=== PATIENT | male | born 1955 | race Caucasian/White ===

== ENCOUNTER → 2017-03-29 19:43 | Emergency (ER) | payer BC ==
[2017-03-29 22:02] VITALS: BP 00/00
--- NOTE | 2017-03-29 23:17 | ED ---
Lower Extremity - HPI Summary HPI Summary: 61M presents with bruising to left ankle. He is concerned because has a VAD. He checked his INR today and it was 2.9. He is on warfarin and is being managed by Liz. He states he got the bruising from what he believes to be hitting against a table. He denies any blood in his stool or nosebleeds. He is concerned her is bleeding internally at site of the bruise but there is no swelling present. He has never had an issue with his platelet. He is having his blood worked check in two days. He denies any pain. - History of Current Complaint Chief Complaint: EDExtremityLower Stated Complaint: LEFT LEG BRUISE, PT HAS L VAC Time Seen by Provider: 03/29/17 21:58 Pain Intensity: 1 - Allergies/Home Medications Allergies/Adverse Reactions: Allergies Allergy/AdvReac Type Severity Reaction Status Date / Time No Known Allergies Allergy Verified 07/16/15 19:22 PMH/Surg Hx/FS Hx/Imm Hx Endocrine/Hematology History: Denies: Hx Diabetes, Hx Thyroid Disease Cardiovascular History: Reports: Hx Hypertension, Hx Pacemaker/ICD, Other Cardiovascular Problems/Disorders - VTACH Respiratory History: Denies: Hx Asthma GI History: Denies: Hx Ulcer - Surgical History Surgery Procedure, Year, and Place: AORTIC VALVE SURGERY Infectious Disease History: No Infectious Disease History: Denies: Hx Clostridium Difficile, Hx Hepatitis, Hx Human Immunodeficiency Virus (HIV), Hx of Known/Suspected MRSA, Hx Shingles, Hx Tuberculosis, Hx Known/ Suspected VRE, Traveled Outside the [place] in Last 30 Days - Family History Known Family History: Positive: Cardiac Disease - Social History Alcohol Use: None Substance Use Type: Reports: None Smoking Status (MU): Never Smoked Tobacco Review of Systems Negative: Fever Negative: Chest Pain Negative: Shortness Of Breath Positive: Bruising - left ankle All Other Systems Reviewed And Are Negative: Yes Physical Exam Triage Information Reviewed: Yes Vital Signs On Initial Exam: Initial Vitals Temp Resp Pulse Ox 99.1 F 18 100 03/29/17 20:33 03/29/17 20:33 03/29/17 20:33 Vital Signs Reviewed: Yes Appearance: Positive: Well-Appearing Skin: Positive: Warm, Dry, Other - three small areas of ecchymosis to medially ankle with no edema present Head/Face: Positive: Normal Head/Face Inspection Eyes: Positive: Normal, Conjunctiva Clear Respiratory/Lung Sounds: Positive: Clear to Auscultation, Breath Sounds Present Cardiovascular: Positive: Normal, RRR Musculoskeletal: Positive: Strength/ROM Intact - left ankle Diagnostics - Vital Signs Vital Signs Temp Pulse Resp BP Pulse Ox 03/29/17 21:59 98.9 F 65 16 00/00 100 03/29/17 20:33 99.1 F 18 100 - Laboratory Lab Statement: Any lab studies that have been ordered have been reviewed, and results considered in the medical decision making process. Lower Extremity Course/Dx - Course Course Of Treatment: 61M presents with bruising to left ankle. He is concerned because has a VAD. He checked his INR today and it was 2.9. He is on warfarin and is being managed by Liz. He states he got the bruising from what he believes to be hitting against a table. He denies any blood in his stool or nosebleeds. He is concerned her is bleeding internally at site of the bruise but there is no swelling present. He has never had an issue with his platelet. He is having his blood worked check in two days. He denies any pain. on exam no edema present and small areas of ecchymosis. since inr already checked today no reason to recheck it. no edema so do not suspect internal bleeding at ecchmoysis site. patient understands and agrees with plan - Diagnoses Differential Diagnosis/HQI/PQRI: Positive: DVT, Other - ecchmoysis Provider Diagnoses: Traumatic ecchymosis of left ankle Discharge - Discharge Plan Condition: Good Disposition: HOME Referrals: Dusty Rodas MD [Primary Care Provider] - Additional Instructions: Follow up with liz as needed Return to ED if swelling develops in area or any new or worsening symptoms
== END | disposition home or self-care (01) ==
LOC: ED 19:43
DX: S90.02XA Contusion of left ankle, initial encounter (principal); Z79.01 Long term (current) use of anticoagulants; X58.XXXA Exposure to other specified factors, initial encounter; Y93.89 Activity, other specified; Y92.89 Other specified places as the place of occurrence of the external cause
CPT/HCPCS: 99281

== ENCOUNTER 2017-06-26 18:35 | Emergency (ER) | payer BC ==
[2017-06-26] MEDS ORDERED: Gelfoam 12-7 ADSORBABL SPONGE* 1 EA SPONGE TOPICAL ONE ×2 (20:12→20:32)
[2017-06-26] MEDS ORDERED: Tetan/Diph/Pertus SYR(Tdap)* 0.5 ML SYR(BOOSTRIX) use SYR IM ONE (20:53)
--- NOTE | 2017-06-26 21:35 | UC ---
Laceration HPI - HPI Summary HPI Summary: Patient presents to the with skin avulsion to the right index finger with small laceration to the left middle finger. He has a complicated history. He has an LVAD and currently on blood thinners. He states he sustained the avulsion to the skin from a kitchen slicer. Immunizations are not UTD. Pain is 3/10 and throbbing. Bleeding is not well controlled on arrival. - History Of Current Complaint Hx Obtained From: Patient Laceration Location: Hand Mechanism Of Injury: Sharp Trauma Onset/Duration: Sudden Onset Severity: Moderate Pain Intensity: 1 Pain Scale Used: 0-10 Numeric Aggravating Factors: Position Related History: Dominant Hand Right <Vidhi Beltran - Last Filed: 06/26/17 21:28> <Claudia Garcia - Last Filed: 06/26/17 21:47> - History Of Current Complaint Chief Complaint: UCLaceration Stated Complaint: FINGER LAC Time Seen by Provider: 06/26/17 19:29 - Allergies/Home Medications Allergies/Adverse Reactions: Allergies Allergy/AdvReac Type Severity Reaction Status Date / Time No Known Allergies Allergy Verified 07/16/15 19:22 PMH/Surg Hx/FS Hx/Imm Hx Previously Healthy: Yes - Surgical History Surgical History: Yes Surgery Procedure, Year, and Place: AORTIC VALVE SURGERY - Family History Known Family History: Positive: Cardiac Disease - Social History Occupation: Employed Part-time Lives: With Family Alcohol Use: None Substance Use Type: None Smoking Status (MU): Never Smoked Tobacco - Immunization History Most Recent Tetanus Shot: within 10 years, yes <Vidhi Beltran - Last Filed: 06/26/17 21:28> Review of Systems Constitutional: Negative Skin: Other - skin avulsion Respiratory: Negative Cardiovascular: Negative Genitourinary: Negative Motor: Negative Neurovascular: Negative Musculoskeletal: Negative Neurological: Negative Is Patient Immunocompromised?: No All Other Systems Reviewed And Are Negative: Yes <Vidhi Beltran - Last Filed: 06/26/17 21:28> Physical Exam Triage Information Reviewed: Yes Appearance: Well-Appearing, Well-Nourished Vital Signs: Initial Vital Signs Temp 98.5 F 06/26/17 18:37 Pulse 83 06/26/17 18:37 Resp 18 06/26/17 18:37 Pulse Ox 98 06/26/17 18:37 Vital Signs Reviewed: Yes Eye Exam: Normal Eyes: Positive: Conjunctiva Clear Dental Exam: Normal Neck exam: Normal Respiratory: Positive: Chest non-tender, Lungs clear Cardiovascular Exam: Normal, Other - patient has LVAD Musculoskeletal Exam: Normal Musculoskeletal: Positive: Strength Intact Neurological Exam: Normal Neurological: Positive: Alert Psychological Exam: Normal Psychological: Positive: Normal Response To Family Skin: Positive: Other - avulsion to the tip of the right index finger <Vidhi Beltran - Last Filed: 06/26/17 21:28> Vital Signs: Initial Vital Signs Temp 98.5 F 06/26/17 18:37 Pulse 83 06/26/17 18:37 Resp 18 06/26/17 18:37 Pulse Ox 98 06/26/17 18:37 <Claudia Garcia - Last Filed: 06/26/17 21:47> Laceration Course/Dx - Course/Dx Course Of Treatment: There is an avulsion fracture to the top of the index finger. During his course of treatment, 25 minutes applied gauze and compression dressing with relief. Upon unwarpping the gauze, bleeding continued and applied gel foam with relief. Both index and third finger are with small avulsions.. Bleeding is controlled and return precautions given. Tetanus updated. - Differential Dx - Laceration/Wound Differental Diagnoses: Avulsion, Laceration, Puncture Wound Provider Diagnoses: Skin Avulsion of Right Index Finger <Vidhi Beltran - Last Filed: 06/26/17 21:28> Discharge <Vidhi Beltran - Last Filed: 06/26/17 21:28> <Claudia Garcia - Last Filed: 06/26/17 21:47> - Discharge Plan Condition: Stable Disposition: HOME Patient Education Materials: Skin Avulsion (ED) Referrals: Dusty Rodas MD [Primary Care Provider] - Additional Instructions: If bleeding persists, place the gel foam on again and wrap with compression dressing (you will do this if this happens tonight or tomorrow) You may also go to the emergency room. If this happens tomorrow, return HERE in the . After day 2 - use the occlusive gauze. Cut in a small square and apply over the area, then use regular gauze to wrap (not compression dressing) Use the occulsive gauze and regular white gauze to wrap both fingers for 3 days total This means you will have these 2 fingers covered for 5 days If worsening symptoms develop or you have uncontrolled bleeding - return to here or the ED Tetanus updated. Attestation Statement User Type: Provider - I was available for consult. This patient was seen by the CRISTIANE. The patient was not presented to, seen by, or examined by me. -Lia <Claudia Garcia - Last Filed: 06/26/17 21:47>
== END 2017-06-26 21:10 | disposition home or self-care (01) ==
LOC: UCEAST 18:35
DX: S61.210A Laceration without foreign body of right index finger without damage to nail, initial encounter (principal); W26.8XXA Contact with other sharp object(s), not elsewhere classified, initial encounter; Y92.89 Other specified places as the place of occurrence of the external cause; Z95.2 Presence of prosthetic heart valve
CPT/HCPCS: 90471; 90715; 99213; A9270-GY; G0463

== ENCOUNTER 2017-09-03 09:37 | Emergency (ER) | payer BC ==
[2017-09-03 09:46] VITALS: BP 119/76
[2017-09-03] MEDS ORDERED: predniSONE TAB* 20 MG PO ONE (10:20)
[2017-09-03] MEDS ORDERED: ValACYclovir (*) 1 GM TAB PO ONE (10:23)
--- NOTE | 2017-09-03 17:07 | ED ---
Nathen Alas Alfonso, scribed for Meir Rhodes MD on 09/03/17 at 1012 . Skin Complaint - HPI Summary HPI Summary: This patient is a 61 year old M presenting to [facility] with a chief complaint of left forehead vesicular rash since 2 days ago. The patient rates the pain 0/10 in severity. Symptoms aggravated and alleviated by nothing. Symptoms not alleviated by Neosporin. Patient denies blurred vision. - History of Current Complaint Chief Complaint: EDRashSkinAbscess Time Seen by Provider: 09/03/17 10:07 Stated Complaint: RASH ALL OVER FACE Hx Obtained From: Patient Onset/Duration: Started Days Ago - 2, Still Present Timing: Constant Pain Intensity: 0 Pain Scale Used: 0-10 Numeric Skin Location: Other: - left forehead Character: Redness - vesicular Aggravating Symptom(s): Nothing Alleviating Symptom(s): Nothing Associated Signs & Symptoms: Rash - Allergy/Home Medications Allergies/Adverse Reactions: Allergies Allergy/AdvReac Type Severity Reaction Status Date / Time No Known Allergies Allergy Verified 09/03/17 09:46 PMH/Surg Hx/FS Hx/Imm Hx Endocrine/Hematology History: Denies: Hx Diabetes, Hx Thyroid Disease Cardiovascular History: Reports: Hx Hypertension, Hx Pacemaker/ICD, Other Cardiovascular Problems/Disorders - VTACH Respiratory History: Denies: Hx Asthma GI History: Denies: Hx Ulcer - Surgical History Surgery Procedure, Year, and Place: AORTIC VALVE SURGERY Infectious Disease History: No Infectious Disease History: Denies: Hx Clostridium Difficile, Hx Hepatitis, Hx Human Immunodeficiency Virus (HIV), Hx of Known/Suspected MRSA, Hx Shingles, Hx Tuberculosis, Hx Known/ Suspected VRE, Traveled Outside the [place] in Last 30 Days - Family History Known Family History: Positive: Cardiac Disease - Social History Alcohol Use: None Hx Substance Use: No Substance Use Type: Reports: None Hx Tobacco Use: No Smoking Status (MU): Never Smoked Tobacco Review of Systems Negative: Fever Negative: Blurred Vision Positive: Rash - left forehead vesicular All Other Systems Reviewed And Are Negative: Yes Physical Exam - Summary Physical Exam Summary: VITAL SIGNS: Reviewed. GENERAL: Patient is a well-developed and nourished male who is lying comfortable in the stretcher. Patient is not in any acute respiratory distress. HEAD AND FACE: No signs of trauma. No ecchymosis, hematomas or skull depressions. No sinus tenderness. EYES: PERRLA, EOMI x 2, No injected conjunctiva, no nystagmus. EARS: Hearing grossly intact. Ear canals and tympanic membranes are within normal limits. MOUTH: Oropharynx within normal limits. NECK: Supple, trachea is midline, no adenopathy, no JVD, no carotid bruit, no c- spine tenderness, neck with full ROM. CHEST: Symmetric, no tenderness at palpation LUNGS: Clear to auscultation bilaterally. No wheezing or crackles. CVS: Regular rate and rhythm, S1 and S2 present, no murmurs or gallops appreciated. ABDOMEN: Soft, non-tender. No signs of distention. No rebound no guarding, and no masses palpated. Bowel sounds are normal. EXTREMITIES: FROM in all major joints, no edema, no cyanosis or clubbing. NEURO: Alert and oriented x 3. No acute neurological deficits. Speech is normal and follows commands. SKIN: Dry and warm. Vesicular rash from the left upper eye lid to the left forehead. Triage Information Reviewed: Yes Vital Signs On Initial Exam: Initial Vitals Temp Pulse Resp BP Pulse Ox 97.8 F 70 16 119/76 100 09/03/17 09:43 09/03/17 09:43 09/03/17 09:43 09/03/17 09:43 09/03/17 09:43 Vital Signs Reviewed: Yes - Carnegie Coma Scale Coma Scale Total: 15 Diagnostics - Vital Signs Vital Signs Temp Pulse Resp BP Pulse Ox 09/03/17 09:43 97.8 F 70 16 119/76 100 - Laboratory Lab Statement: Any lab studies that have been ordered have been reviewed, and results considered in the medical decision making process. Course/Dx - Course Assessment/Plan: This patient is a 61 year old M presenting to [facility] with a chief complaint of left forehead vesicular rash since 2 days ago. The patient rates the pain 0/10 in severity. Symptoms aggravated and alleviated by nothing. Symptoms not alleviated by Neosporin. Patient denies blurred vision. At this time there is no involving of the left eye. The patient dines any pain or blurred vision. He was instructed that if he develops any type of pain or vision changes go to the pulp plant supervisor immediately. At this time there is only skin involvement, for which the patient was given prednisone and Valtrex. Patient will be discharged with prescription for prednisone and Valtrex and follow up from PCP and pulp plant supervisor. The patient is agreeable with this plan. The patient is hemodynamically stable, alert and oriented x3. - Diagnoses Provider Diagnoses: Shingles Discharge - Discharge Plan Condition: Stable Disposition: HOME Prescriptions: predniSONE TAB* [Deltasone TAB*] 40 mg PO DAILY #8 tab ValACYclovir (*) [Valtrex 1 GM(*)] 1 gm PO BID #14 tab Patient Education Materials: Mac (ED) Referrals: Dusty Rodas MD [Primary Care Provider] - 3 Days Mio Hernandez MD [Medical Doctor] - If Needed Additional Instructions: RETURN TO THE EMERGENCY DEPARTMENT FOR CHANGING OR WORSENING SYMPTOMS. The documentation as recorded by the Nathen dugan Alfonso accurately reflects the service I personally performed and the decisions made by Carmelo parkinson Walter, MD.
== END 2017-09-03 10:45 | disposition home or self-care (01) ==
LOC: ED 09:37
DX: B02.9 Zoster without complications (principal); I10 Essential (primary) hypertension; Z95.810 Presence of automatic (implantable) cardiac defibrillator
CPT/HCPCS: 99282; A9270-GY; J7512

== ENCOUNTER 2018-12-24 04:07 | Emergency (ER) | payer MEDICARE ==
--- OUTSIDE RECORDS SUMMARY | 2018-12-24 04:40 | XMS REPORT | Continuity of Care Document ---
:1955 External Reference #:[id number] Author Name Mio Hernandez M.D. Address [address] [place] [address] Care Team Providers Name Role Phone Kvng Husain Primary Care Physician Unavailable Payers Date Identification Numbers Payment Provider Subscriber Policy Number: [id number] Medicare - [facility] Catracho Raymundorey PayID: [id number] [address] [place] [address] Policy Number: [id number] [facility] Catracho Raymundorey PayID: [id number] [address] [place] [address] Advance Directives Description No Information Available Problems Active Problems Provider Date Cardiomyopathy Onset: Retinal hemorrhage Mio Hernandez M.D. Onset: 12/21/2018 Primary cardiomyopathy Mio Hernandez M.D. Onset: 09/08/2017 Taking medication Mio Hernandez M.D. Onset: 09/08/2017 Nuclear senile cataract Mio Hernandez M.D. Onset: 09/08/2017 Herpes zoster without complication Mio Hernandez M.D. Onset: 09/08/2017 Family History Date Family Member(s) Observation Comments Father No Current Problems Mother No Current Problems Social History Type Date Description Comments Sex Unknown Marital Status Single Work Status Retired ETOH Use Occasionally consumes alcohol Tobacco Use Start: Unknown Patient has never smoked Recreational Drug Use Denies Drug Use Smoking Status Reviewed: 12/21/18 Patient has never smoked Allergies, Adverse Reactions, Alerts Description No Known Drug Allergies Medications Active Medications SIG Qnty Indications Ordering Provider Date Ascorbic Acid Unknown 1000mg Tablets Ferrous Sulfate Unknown 325mg Tablets Amlodipine Besylate Unknown 2.5mg Tablets Magnesium Unknown 500mg Tablets Melatonin ER 1 tab every day Unknown 3mg Tablets ER by mouth Multi Vitamin Daily Unknown Tablets Pantoprazole Sodium every day Unknown 40mg Solution Rec Pramipexole Unknown Dihydrochloride 0.125mg Tablets Warfarin Sodium Unknown 3mg Tablets Metoprolol Succinate ER Take 1 Tablet Unknown 100mg By Mouth Two Tablets ER 24HR Times Daily History Medications Amiodarone HCL Unknown - 12/20/2018 200mg Tablets Metoprolol Succinate ER Unknown - 12/20/2018 100mg Tablets ER 24HR Prednisone 20mg Unknown - 12/17/2017 Tablets Valacyclovir HCL Unknown - 12/17/2017 1gm Tablets Metoprolol Succinate ER Brand, Karman Burciaga - 12/20/2018 100mg Tablets ER 24HR Immunizations Description No Information Available Vital Signs Description No Information Available Results Description No Information Available Procedures Date Code Description Status 12/18/2017 77952 Scanning Computerized Opthalmic Diagnostic Posterior Seg Completed Retina 12/18/2017 33473 Visual Field Exam Extended Completed 12/18/2017 28536 Determination Of Refractive State Completed 12/18/2017 80684 Est Patient Comprehensive Exam Completed 09/08/2017 81692 New Patient Comprehensive Exam Completed Encounters Description No Information Available Plan of Treatment 12/21/2018 - Mio Hernandez M.D.Z79.899 Other shelter (current) drug therapyComments:Smoking can increase the risk of developing or worsening any eye related disease, as well as affect your overall health. If you are a smoker , we strongly recommend that you quit.If you are not a smoker, we strongly recommend that you do not start.I42.0 Dilated [id number] Age-related nuclear cataract, bilateralComments:You have been diagnosed with cataracts. If you are happy with your vision as it is now, then we willsee you at your next scheduled appointment. If you feel like your vision is getting worse before your scheduled appointment, please call Jayashree Parson at .H35.61 Retinal hemorrhage, right eyeFollow up:3 Month Follow Up TS OR [facility] 1 Year Follow Up RA You can expect to have your eyes dilated at your next visit. If Dr. Hernandez orders any additional testing, it may require extra time. We recommend that you bring sunglasses, as dilation drops often make you light sensitive until they wear off. We always recommend you bring someone to drive you home if you are uncomfortable driving with your eyes dilated.If you have any questions before your next visit, feel free to call our office at .
--- OUTSIDE RECORDS SUMMARY | 2018-12-24 04:40 | XMS REPORT | Continuity of Care Document ---
:1955 External Reference #:[id number] Author Name Baca Edith Care Team Providers Name Role Phone Ramona Flores MD Primary Care Physician Unavailable Payers Date Identification Numbers Payment Provider Subscriber Policy Number: [id number] Medicare Malgorzata Wilson PayID: [id number] [address] [place] [address] Policy Number: [id number] [facility] Malgorzata Wilson PayID: [id number] [address] [place] [address] Advance Directives Type Date Description Status Comment Other Directive 10/28/2016 Health Care Proxy Current and Verified Problems Date Description Provider Status Onset: 03/23/2015 Congestive heart failure Stu Mcguire NP Active Note: LVAD 08/2015 [place] [facility] Onset: 01/25/2016 Gastroesophageal reflux disease Dusty Salomon M.D., FACP Active Onset: 04/08/2016 Anemia Dusty Salomon M.D.,FACP Active Note: HCT 36-37 Onset: 10/28/2016 Implantation of automatic Dusty Salomon Active cardioverter/defibrillator, total MNaseem,FACP system (AICD) Onset: 03/31/2017 Secondary restless legs syndrome Dusty Salomon Active PatricaFACP Onset: 10/30/2017 Warfarin monitoring status Lauren Barbosa M.D.,FACScooter Note: goal 2-3, managed in [place] Onset: 04/30/2018 Restless legs Dusty Salomon M.D.,FACP Active Family History Date Family Member(s) Observation Comments General Heart Disease General Diabetes Father Diabetes Father due to Heart Disease () : (age 93 Years) Mother due to Old age Siblings 1 brother Social History Type Date Description Comments Sex Unknown Marital Status Single Lives With Alone Occupation 10/28/2016 Disabled Tobacco Use Start: Unknown Never Smoked Cigarettes Smoking Status Reviewed: 12/07/18 Never Smoked Cigarettes ETOH Use 04/30/2018 Occasionally consumes alcohol Tobacco Use Start: Unknown Patient has never smoked Recreational Drug Use Denies Drug Use Exercise Type/Frequency Exercises regularly walking 30mins daily goes to gym now once to three times a week Allergies, Adverse Reactions, Alerts Description No Known Drug Allergies Medications Medication Date Status Form Strength Qnty SIG Indications Ordering Provider Metoprolol 12/07 Active Tablets ER 100mg 180ta 1 by twice Kamran Succinate 24HR bs day. Alex Davis M.D. Epinephrine 12/04 Active Solution 0.3mg/0.3 2unit use as Auto-Inject ML s directed HANNY Husain Ferrex 150 11/27 Active Capsules 150mg 180ca 1 by mouth ps twice day HANNY Husain Pramipexole 11/23 Active Tablets 0.25mg 90tab 1 tab 2 Dusty Dihydrochloride s hours prior Alex Salomon, to bedtime M.D.,FACP Warfarin Sodium 06/03 Active Tablets 2mg 60tab as directed Talon s ( 4 mg wed Marquez, and sun ) M.D. Multivitamins Active Capsules 1 by mouth Unknown /0000 every day Vitamin C Active Tablets 1000mg 1/2 by Unknown /0000 mouth 2x a day w/ iron Pantoprazole Active Tablets DR 40mg 1 by mouth Unknown Sodium /0000 every morning Brilinta Active Tablets 90mg 1 tab by Unknown /0000 mouth twice a day Melatonin Active Capsules 3mg 2 by mouth Unknown /0000 every night at bedtime Magnesium Active 550mg 2 tabs Unknown Gluconate /0000 daily Warfarin Sodium Active Tablets 3mg 3mg daily Unknown /0000 as directed Hydralazine HCL Active Tablets 100mg 1 tablet po Unknown /0000 three times daily Amlodipine Active Tablets 2.5mg 3 tabs Unknown Besylate /0000 daily Shingrix 08/06 Hx Suspension 50mcg 2unit 0.5 Rec s milliliters Alex Salomon, - intramuscul M.DLinda,FACP 11/30 ar now 2-3 months later repeat Pramipexole 03/31 Hx Tablets 0.125mg 180ta 2 tabs by Danika Dihydrochloride bs mouth 2 Archer, - hours prior ENGINEERING OFFICER 11/23 to bedtime Epipen 2-Javed 04/18 Hx Solution 0.3mg/0.3 2unit use as Auto-Inject ML s directed Lisha, ENGINEERING OFFICER - 12/04 Benadryl 04/15 Hx Capsules 25mg 30cap take 1-2 T78.3xxD s tablets up Alex Salomon, - to every 6 M.D.,FACP 07/18 hours needed for ithching Famotidine 04/15 Hx Tablets 10mg 2 tabs as T78.3xxD needed for Alex Salomon, - allergy/ang Patrica,FACP 07/18 ioedema Famotidine 04/11 Hx Tablets 20mg 8tabs 1 by mouth bid Ordering - Provider 04/15 Prednisone 04/10 Hx Tablets 20mg 8tabs 2 tabs daily x 4 Ordering - days Provider 04/14 Klor-Con 10 12/28 Hx Tablets ER 10Meq 14tab 1 by mouth s every day Perez Cortez M.D.,FACP 12/28 Amiodarone HCL 09/25 Hx Tablets 200mg 60tab /2 po qam Kamran s Perez Cavazos M.D. 07/12 Hydralazine HCL 09/25 Hx Tablets 50mg 90tab take 2 s tablet by Jimmy, - mouth 3 M.D. 11/11 times a day /2016 ( Med Change- not taking this dose) Magnesium Oxide 09/25 Hx Capsules 400mg 30cap 2 tabs by Talon s mouth bid Perez Marquez M.D. 10/02 Metoprolol 09/25 Hx Tablets ER 100mg 30tab 1 by mouth Talon Succinate ER 24HR s every day Marquez, - M.D. 12/07 Warfarin Sodium 05/05 Hx Tablets 3mg 60tab once daily s Jimmy, - M.D. 10/07 Warfarin Sodium 05/05 Hx Tablets 2.5mg 60tab 1 tab daily s Jimmy, - M.D. 10/07 Lasix 03/30 Hx Tablets 20mg 30tab 1 tab qAM. I50.22 s (another 1 D. Brand, - tab PM as M.D. 10/07 needed BP reading). Augmentin 04/09 Hx Tablets 875-125mg 14tab take one Kassandar s tab every Tyler, - 12 hours x M.D. 04/14 [place] 04/09 Hx Tablets 5-325mg 40tab 1-2 tabs by s mouth q4-6 Tyler, - h as needed M.D. 04/14 Percocet 04/09 Hx Tablets 5-325mg 64tab 1-2 tabs by s mouth q6h Tyler, - as needed M.D. 04/09 pain Coreg 00 Hx Tablets 25mg 180ta 1 by mouth Unknown /0000 bs twice a day - 10/07 Digoxin 00 Hx Tablets 125mcg 1 by mouth Unknown /0000 every day - 10/07 Ramipril Hx Capsules 5mg 1 by mouth Unknown /0000 every day - 10/07 Aldactone Hx Tablets 25mg 1 tablet Unknown /0000 qod - 10/07 Warfarin Sodium 00/00 Hx as directed Unknown /0000 - 05/19 Sotalol HCL 0000 Hx Tablets 80mg 1 by mouth Unknown /0000 twice a day - 10/07 Augmentin 00/00 Hx Tablets 875-125mg 20tab one by Unknown /0000 s mouth every - 12 hours 02/26 for days Enoxaparin 00/00 Hx Solution 80mg/0.8M 10syr inject Talon Sodium /0000 L inges subcutaneou Jimmy, - sly into M.D. 10/07 every 12 hours. (patient states today is the last day, will go back to coumadin tomwirow) Imodium A-D Hx Tablets 2mg one by Unknown /0000 mouth three - times a day 07/18 as needed for diarrhea Amlodipine Hx Tablets 2.5mg 1 by mouth Unknown /0000 every day - (pt states 04/30 he takes tabs daily) Ferrous Sulfate Hx Tablets 325mg 2 by mouth Unknown /0000 every day - 11/27 Valacyclovir HCL Hx Tablets 1gm Carmelo, / Perez Worley MD 10/30 Prednisone Hx Tablets 20mg Carmelo, Perez Worley MD 10/30 Medications Administered in Office Medication Date Status Form Strength Qnty SIG Indications Ordering Provider Shingrix no Administered Injection Unknown bill inj-pt 019 brought in PPD Administered Injection Nurse Visit 015 [place] Immunizations CPT Code Status Date Vaccine Reaction Lot # [id number] Given 07/06/2018 Influenza Virus Vaccine, Quadrivalent, Split, Preservative Free 31517 Given 10/30/2017 Hepatitis B Vaccine Adult [id number] Dosage 10103 Given 10/30/2017 Influenza Virus Vaccine, [id number] Quadrivalent, Split, Preservative Free 60053 Given 10/28/2016 Pneumonia Vaccine [id number] 33929 Given 07/01/2016 Influ Virus Vaccine, pt had done in [facility] at Quadrivalent, Split Virus, [place] [address] Given 07/27/2015 Hepatitis B Vaccine Adult [id number] Dosage 23856 Given 07/27/2015 Zoster (Zostavax) [id number] 38977 Given 07/13/2015 Influenza Virus Vaccine, [id number] Quadrivalent, Split, Preservative Free 44963 Given 06/29/2015 Hepatitis B Vaccine Adult [id number] Dosage 68362 Given 06/29/2015 Hepatitis A Vaccine Adult [id number] Dosage 23275 Given 06/15/2015 Tdap - [id number] Tetanus/Diptheria/Acellular Pertussis 09375 Given 06/15/2015 Pneumococcal Conjugate [id number] Vaccine 13 Valent For Intramuscular Use Vital Signs Date Vital Result Comment 12/07/2018 11:51am Height 64 inches 5'4" Weight 190.00 lb with shoes Heart Rate 88 /min BP Diastolic Sitting 82 mmHg Rue reg cuff Respiratory Rate 16 /min O2 % BldC Oximetry 98 % BMI (Body Mass Index) 32.6 kg/m2 11/30/2018 4:01pm Height 64 inches 5'4" Weight 189.50 lb Heart Rate 73 /min Body Temperature 97.8 F O2 % BldC Oximetry 97 % BMI (Body Mass Index) 32.5 kg/m2 11/16/2018 4:05pm Height 64 inches 5'4" Weight 190.00 lb with shoes BMI (Body Mass Index) 32.6 kg/m2 07/11/2018 3:39pm Height 64 inches 5'4" Weight 183.00 lb with shoes Heart Rate 84 /min with pulse oximeter BP Systolic Sitting 82 mmHg with doppler BP Diastolic Sitting 0 mmHg with doppler O2 % BldC Oximetry 95 % at room air BMI (Body Mass Index) 31.4 kg/m2 04/30/2018 1:26pm Height 64 inches 5'4" Weight 176.00 lb Heart Rate 84 /min Body Temperature 98.5 F O2 % BldC Oximetry 98 % BMI (Body Mass Index) 30.2 kg/m2 12/27/2017 3:24pm Height 64 inches 5'4" Weight 182.25 lb with shoes Heart Rate 76 /min BP Systolic Sitting 90 mmHg Rue by doppler Respiratory Rate 17 /min O2 % BldC Oximetry 97 % at room air BMI (Body Mass Index) 31.3 kg/m2 Ejection Fraction 12% date 11/18/15 echo 10/30/2017 2:43pm Height 64 inches 5'4" Weight 176.00 lb Heart Rate 80 /min Body Temperature 97.6 F O2 % BldC Oximetry 98 % BMI (Body Mass Index) 30.2 kg/m2 09/07/2017 8:38am Height 64.4 inches 5'4.40" Weight 176.00 lb Heart Rate 71 /min BP Systolic Sitting 0 mmHg BP Diastolic Sitting 74 mmHg Body Temperature 97.3 F O2 % BldC Oximetry 98 % BMI (Body Mass Index) 29.8 kg/m2 07/03/2017 2:06pm Heart Rate 75 /min O2 % BldC Oximetry 98 % 06/09/2017 3:45pm Height 64.4 inches 5'4.40" Weight 168.31 lb with shoes Heart Rate 74 /min BP Systolic 94 mmHg with doopler BMI (Body Mass Index) 28.5 kg/m2 Ejection Fraction <20% 11/18/2015-echo 03/31/2017 4:05pm Weight 167.12 lb Heart Rate 71 /min Body Temperature 98.1 F O2 % BldC Oximetry 98 % 11/11/2016 3:25pm Height 64.4 inches 5'4.40" Weight 166.00 lb with shoes BP Systolic Sitting 90 mmHg Rue used doppler Lvad BMI (Body Mass Index) 28.1 kg/m2 Ejection Fraction 12% date 11/17/15 ECHO 10/28/2016 2:50pm Height 64.4 inches 5'4.40" Weight 168.25 lb Heart Rate 62 /min Body Temperature 97.2 F O2 % BldC Oximetry 98 % BMI (Body Mass Index) 28.5 kg/m2 07/22/2016 2:56pm Height 64.4 inches 5'4.40" Weight 169.00 lb with shoes Heart Rate 76 /min BP Systolic Sitting 100 mmHg Map BP Diastolic Sitting 0 mmHg Map Respiratory Rate 17 /min BMI (Body Mass Index) 28.6 kg/m2 Ejection Fraction <20% date 11/18/15 ECHO 07/18/2016 1:07pm Height 64.4 inches 5'4.40" Weight 172.00 lb Heart Rate 65 /min Body Temperature 97.4 F O2 % BldC Oximetry 99 % BMI (Body Mass Index) 29.2 kg/m2 04/15/2016 4:59pm Height 64.4 inches 5'4.40" Weight 161.50 lb Heart Rate 68 /min Body Temperature 982.0 F O2 % BldC Oximetry 98 % BMI (Body Mass Index) 27.4 kg/m2 04/08/2016 3:52pm Height 64.4 inches 5'4.40" Weight 166.50 lb Heart Rate 68 /min Body Temperature 97.4 F O2 % BldC Oximetry 97 % BMI (Body Mass Index) 28.2 kg/m2 01/01/2016 7:41am Height 64.4 inches 5'4.40" Weight 163.00 lb w/ Lvad Heart Rate 74 /min BP Systolic Sitting 76 mmHg Map, d/t Lvad, reg cuf BP Diastolic Sitting 0 mmHg Map, d/t Lvad, reg cuf Respiratory Rate 16 /min BMI (Body Mass Index) 27.6 kg/m2 Ejection Fraction 12% As of 11/18/15 echo 12/28/2015 4:04pm Height 64.4 inches 5'4.40" Weight 158.12 lb Body Temperature 97.9 F BMI (Body Mass Index) 26.8 kg/m2 07/16/2015 11:53am Height 64.4 inches 5'4.40" Weight 164.00 lb with shoes Heart Rate 72 /min BP Systolic Sitting 92 mmHg Ra, reg cuff BP Diastolic Sitting 56 mmHg Ra, reg cuff BP Systolic Standing 88 mmHg Ra BP Diastolic Standing 64 mmHg Ra Respiratory Rate 16 /min BMI (Body Mass Index) 27.8 kg/m2 07/07/2015 1:45pm Height 64.4 inches 5'4.40" Weight 165.50 lb Heart Rate 84 /min BP Systolic Sitting 84 mmHg BP Diastolic Sitting 64 mmHg Body Temperature 97.6 F O2 % BldC Oximetry 98 % BMI (Body Mass Index) 28.1 kg/m2 05/22/2015 2:17pm Height 64.4 inches 5'4.40" Weight 187.00 lb with shoes Heart Rate 68 /min BP Systolic Sitting 102 mmHg LA reg cuff BP Diastolic Sitting 60 mmHg LA reg cuff BP Systolic Standing 98 mmHg LA reg cuff BP Diastolic Standing 60 mmHg LA reg cuff Respiratory Rate 16 /min BMI (Body Mass Index) 31.7 kg/m2 Ejection Fraction <20% date 03/23/15 Peter 04/10/2015 9:56am Height 64.4 inches 5'4.40" Weight 180.00 lb per pt this am Heart Rate 60 /min reg BP Systolic Sitting 100 mmHg Lue, reg cuff BP Diastolic Sitting 56 mmHg Lue, reg cuff BP Systolic Standing 104 mmHg Lue BP Diastolic Standing 64 mmHg Lue Respiratory Rate 18 /min BMI (Body Mass Index) 30.5 kg/m2 Ejection Fraction < 20% as of 03/23/15 Peter 04/01/2015 2:17pm Height 64.4 inches 5'4.40" Weight 195.25 lb Heart Rate 78 /min BP Systolic Sitting 100 mmHg BP Diastolic Sitting 78 mmHg Body Temperature 97.8 F O2 % BldC Oximetry 98 % BMI (Body Mass Index) 33.1 kg/m2 03/30/2015 1:28pm Weight 195.50 lb Heart Rate 88 /min BP Systolic Sitting 90 mmHg BP Diastolic Sitting 68 mmHg Body Temperature 98.1 F O2 % BldC Oximetry 98 % 03/24/2015 2:17pm Height 64.4 inches 5'4.40" Weight 201.00 lb Heart Rate 88 /min BP Systolic Sitting 112 mmHg BP Diastolic Sitting 68 mmHg Body Temperature 97.1 F O2 % BldC Oximetry 98 % BMI (Body Mass Index) 34.1 kg/m2 03/20/2015 1:40pm Height 64.4 inches 5'4.40" Weight 196.00 lb Heart Rate 76 /min BP Systolic 104 mmHg Ra reg cuff BP Diastolic 88 mmHg Ra reg cuff BP Systolic Sitting 102 mmHg LA BP Diastolic Sitting 86 mmHg LA BP Systolic Standing 100 mmHg LA BP Diastolic Standing 86 mmHg LA Respiratory Rate 14 /min BMI (Body Mass Index) 33.2 kg/m2 Ejection Fraction 10-15% 08/20/14 02/26/2015 3:20pm Height 65 inches 5'5" Weight 194.00 lb Heart Rate 56 /min BP Systolic Sitting 118 mmHg BP Diastolic Sitting 70 mmHg O2 % BldC Oximetry 96 % BMI (Body Mass Index) 32.3 kg/m2 05/05/2014 11:00am Heart Rate 82 /min BP Systolic Sitting 124 mmHg BP Diastolic Sitting 82 mmHg 04/14/2014 11:11am Height 66 inches 5'6" Weight 184.00 lb Heart Rate 80 /min BP Systolic Sitting 138 mmHg BP Diastolic Sitting 90 mmHg BMI (Body Mass Index) 29.7 kg/m2 04/09/2014 2:16pm Height 66 inches 5'6" Weight 183.00 lb Heart Rate 74 /min BP Systolic 102 mmHg BP Diastolic 69 mmHg BMI (Body Mass Index) 29.5 kg/m2 Results Test Date Facility Test Result H/L Range Note CBC Auto Diff 12/03/2018 [facility] White Blood 5.8 10^3/uL N 3.5-10.[address] [place] [address] [phone] Red Blood Count 5.00 10^6/uL N 4.00-5.40 Hemoglobin 13.7 g/dL Low 14.0-18.0 Hematocrit 42 % N 42-52 Mean Corpuscular Volume 85 fL N 80-94 Mean Corpuscular Hemoglobin 27 pg N 27-31 Mean Corpuscular HGB Conc 32 g/dL N 31-36 Red Cell Distribution Width 17 % High 10.5-15 Platelet Count 162 10^3/uL N 150-450 Mean Platelet Volume 8.7 fL N 7.4-10.4 Abs Neutrophils 4.5 10^3/uL N 1.5-7.7 Abs Lymphocytes 0.6 10^3/uL Low 1.0-4.8 Abs Monocytes 0.7 10^3/uL N 0-0.8 Abs Eosinophils 0.1 10^3/uL N 0-0.6 Abs Basophils 0.1 10^3/uL N 0-0.2 Abs Nucleated RBC 0 10^3/uL Granulocyte % 76.5 % Lymphocyte % 9.5 % Monocyte % 12.2 % Eosinophil % 0.9 % Basophil % 0.9 % Nucleated Red Blood Cells % 0 Inr/Protime 12/03/2018 [facility] Inr 2.22 High 0.77-1.02 [address] [place] [address] [phone] Comp Metabolic 12/03/2018 [facility] Sodium 137 mmol/L N 135- 145 Panel [address] [place] [address] [phone] Potassium 3.8 mmol/L N 3.5-5.0 Chloride 102 mmol/L N 101-111 Co2 Carbon Dioxide 28 mmol/L N 22-32 Anion Gap 7 mmol/L N 2-11 Glucose 86 mg/dL N 70-100 Blood Urea Nitrogen 25 mg/dL High 6-24 Creatinine 1.16 mg/dL N 0.67-1.17 BUN/Creatinine Ratio 21.6 High 8-20 Calcium 9.2 mg/dL N 8.6-10.3 Total Protein 6.6 g/dL N 6.4-8.9 Albumin 4.3 g/dL N 3.2-5.2 Globulin 2.3 g/dL N 2-4 Albumin/Globulin Ratio 1.9 N 1-3 Total Bilirubin 1.00 mg/dL N 0.2-1.0 Alkaline Phosphatase 67 U/L N 34-104 Alt 10 U/L N 7-52 Ast 23 U/L N 13-39 Egfr Non- 63.6 >60 Egfr 76.9 >60 1 Laboratory test 12/03/2018 [facility] Magnesium 2.0 mg/dL N 1.9-2.7 2 finding [address] [place] [address] [phone] C Reactive Protein 3.60 mg/L N <8.01 3 Iron & Iron Binding 12/03/2018 [facility] Iron 56 g/dL N 50- 212 [address]acity [address] [place] [address] [phone] Unsaturated Iron Binding < 336 g/dL Total Iron Binding Capacity 351 g/dL N 250-450 Transferrin 251 mg/dL N 203-362 % Iron Saturation 16 % N 15-55 Lipid Profile 12/03/2018 [facility] Triglycerides 95 mg/dL 4 (Trig/Chol/HDL) [place] [address] [phone] Cholesterol 172 mg/dL 5 HDL Cholesterol 44.8 mg/dL 6 LDL Cholesterol 108 mg/dL 7 Laboratory test 12/03/2018 [facility] TSH (Thyroid 1.63 mcIU/mL N 0.34-5.60 finding [address] [place]) [place] [address] [phone] Free T4 (Free Thyroxine) 1.10 ng/dL N 0.61-1.12 Ferritin 24.2 ng/mL N 24-336 LD Isoenzymes 12/03/2018 [facility] LDH 441 U/L Abnormal 122 - 222 [place] [address] [phone] LD 1 40.6 % Abnormal 17.5-28.3 LD 2 36.5 % Abnormal 30.4-36.4 LD 3 12.9 % Abnormal 19.2-24.8 LD 4 4.8 % Abnormal 9.6-15.6 LD 5 5.2 % Abnormal 5.5-12.7 8 LD Isoenzymes 10/05/2018 [facility] LDH 496 U/L Abnormal 122 - 222 [place] [address] [phone] LD 1 39.2 % Abnormal 17.5-28.3 LD 2 38.2 % Abnormal 30.4-36.4 LD 3 14.0 % Abnormal 19.2-24.8 LD 4 4.5 % Abnormal 9.6-15.6 LD 5 4.1 % Abnormal 5.5-12.7 9 Inr/Protime 10/05/2018 [facility] Inr 1.96 High 0.77-1.[address] [place] [address] [phone] CBC No Diff 10/05/2018 [facility] White Blood 6.7 10^3/uL N 3.5-10.[address] [place] [address] [phone] Red Blood Count 4.77 10^6/uL N 4.00-5.40 Hemoglobin 12.2 g/dL Low 14.0-18.0 Hematocrit 38 % Low 42-52 Mean Corpuscular Volume 79 fL Low 80-94 Mean Corpuscular Hemoglobin 26 pg Low 27-31 Mean Corpuscular HGB Conc 32 g/dL N 31-36 Red Cell Distribution Width 25 % High 10.5-15 Platelet Count 183 10^3/uL N 150-450 Mean Platelet Volume 8.7 fL N 7.4-10.4 Laboratory test 10/05/2018 [facility] Magnesium 2.1 mg/dL N 1.9-2.7 10 finding [address] [place] [address] [phone] C Reactive Protein 3.58 mg/L N <8.01 11 Comp Metabolic Panel 10/05/2018 [facility] Sodium 137 mmol/L N 135-145 [address] [place] [address] [phone] Potassium 4.3 mmol/L N 3.5-5.0 Chloride 103 mmol/L N 101-111 Albumin 4.3 g/dL N 3.2-5.2 Co2 Carbon Dioxide 29 mmol/L N 22-32 Anion Gap 6 mmol/L N 2-11 Calcium 9.4 mg/dL N 8.6-10.3 Total Bilirubin 0.80 mg/dL N 0.2-1.0 Glucose 94 mg/dL N 70-100 Blood Urea Nitrogen 28 mg/dL High 6-24 Creatinine 1.13 mg/dL N 0.67-1.17 BUN/Creatinine Ratio 24.8 High 8-20 Total Protein 6.3 g/dL Low 6.4-8.9 Globulin 2.0 g/dL N 2-4 Albumin/Globulin Ratio 2.2 N 1-3 Alkaline Phosphatase 70 U/L N 34-104 Alt 12 U/L N 7-52 Ast 28 U/L N 13-39 Egfr Non- 65.8 >60 Egfr 79.6 >60 12 CBC No Diff 08/14/2018 [facility] White Blood 7.5 10^3/uL N 3.5-10.[address] [place] [address] [phone] Red Blood Count 4.26 10^6/uL N 4.00-5.40 Hemoglobin 9.1 g/dL Low 14.0-18.0 Hematocrit 29 % Low 42-52 Mean Corpuscular Volume 68 fL Low 80-94 Mean Corpuscular Hemoglobin 21 pg Low 27-31 Mean Corpuscular HGB Conc 31 g/dL N 31-36 Red Cell Distribution Width 19 % High 10.5-15 Platelet Count 230 10^3/uL N 150-450 Mean Platelet Volume 8.7 fL N 7.4-10.4 Inr/Protime 08/14/2018 [facility] Inr 1.95 High 0.77-1.[address] [place] [address] [phone] Comp Metabolic 08/14/2018 [facility] Sodium 137 mmol/L N 135- [address] [place] [address] [phone] Potassium 4.7 mmol/L N 3.5-5.0 Chloride 104 mmol/L N 101-111 Co2 Carbon Dioxide 28 mmol/L N 22-32 Anion Gap 5 mmol/L N 2-11 Glucose 88 mg/dL N 70-100 Blood Urea Nitrogen 31 mg/dL High 6-24 Creatinine 1.15 mg/dL N 0.67-1.17 BUN/Creatinine Ratio 27.0 High 8-20 Calcium 9.2 mg/dL N 8.6-10.3 Total Protein 6.5 g/dL N 6.4-8.9 Albumin 4.2 g/dL N 3.2-5.2 Globulin 2.3 g/dL N 2-4 Albumin/Globulin Ratio 1.8 N 1-3 Total Bilirubin 0.70 mg/dL N 0.2-1.0 Alkaline Phosphatase 65 U/L N 34-104 Alt 8 U/L N 7-52 Ast 19 U/L N 13-39 Egfr Non- 64.4 >60 Egfr 78.0 >60 13 Laboratory test 08/14/2018 [facility] Magnesium 2.2 mg/dL N 1.9-2.7 14 finding [address] [place] [address] [phone] C Reactive Protein 2.42 mg/L N <8.01 15 LD Isoenzymes 08/14/2018 [facility] LDH 350 U/L Abnormal 122 - 222 [address] [place], [place] [address] [phone] LD 1 37.0 % Abnormal 17.5-28.3 LD 2 37.0 % Abnormal 30.4-36.4 LD 3 14.9 % Abnormal 19.2-24.8 LD 4 5.6 % Abnormal 9.6-15.6 LD 5 5.5 % 5.5-12.7 16 LD Isoenzymes 07/13/2018 [facility] LDH 342 U/L Abnormal 122 - 222 [address] [place] [address] [phone] LD 1 37.1 % Abnormal 17.5-28.3 LD 2 36.2 % 30.4-36.4 LD 3 14.3 % Abnormal 19.2-24.8 LD 4 5.9 % Abnormal 9.6-15.6 LD 5 6.5 % 5.5-12.7 17 Comp Metabolic Panel 07/13/2018 [facility] Sodium 136 mmol/L N 135-145 [address] [place] [address] [phone] Potassium 4.4 mmol/L N 3.5-5.0 Chloride 105 mmol/L N 101-111 Co2 Carbon Dioxide 25 mmol/L N 22-32 Anion Gap 6 mmol/L N 2-11 Glucose 96 mg/dL N 70-100 Blood Urea Nitrogen 29 mg/dL High 6-24 Creatinine 1.33 mg/dL High 0.67-1.17 BUN/Creatinine Ratio 21.8 High 8-20 Calcium 8.7 mg/dL N 8.6-10.3 Total Protein 6.1 g/dL Low 6.4-8.9 Albumin 4.0 g/dL N 3.2-5.2 Globulin 2.1 g/dL N 2-4 Albumin/Globulin Ratio 1.9 N 1-3 Total Bilirubin 0.60 mg/dL N 0.2-1.0 Alkaline Phosphatase 68 U/L N 34-104 Alt 12 U/L N 7-52 Ast 20 U/L N 13-39 Egfr Non- 54.5 >60 Egfr 65.9 >60 18 Laboratory test 07/13/2018 [facility] Magnesium 2.0 mg/dL N 1.9-2.7 [address] [place] [address] [phone] C Reactive Protein 2.64 mg/L N <8.01 20 Inr/Protime 07/13/2018 [facility] Inr 2.07 High 0.77-1.[address] [place] [address] [phone] CBC No Diff 07/13/2018 [facility] White Blood 6.7 10^3/uL N 3.5-10.[address] [place] [address] [phone] Red Blood Count 4.03 10^6/uL N 4.00-5.40 Hemoglobin 8.7 g/dL Low 14.0-18.0 Hematocrit 28 % Low 42-52 Mean Corpuscular Volume 69 fL Low 80-94 Mean Corpuscular Hemoglobin 22 pg Low 27-31 Mean Corpuscular HGB Conc 31 g/dL N 31-36 Red Cell Distribution Width 21 % High 10.5-15 Platelet Count 215 10^3/uL N 150-450 Mean Platelet Volume 8.1 um3 N 7.4-10.4 CBC No Diff 05/14/2018 [facility] White Blood 4.9 10^3/uL N 3.5-10.[address] [place] [address] [phone] Red Blood Count 4.26 10^6/uL N 4.00-5.40 Hemoglobin 9.1 g/dL Low 14.0-18.0 Hematocrit 29 % Low 42-52 Mean Corpuscular Volume 68 fL Low 80-94 21 Mean Corpuscular Hemoglobin 21 pg Low 27-31 Mean Corpuscular HGB Conc 31 g/dL N 31-36 Red Cell Distribution Width 20 % High 10.5-15 Platelet Count 220 10^3/uL N 150-450 Mean Platelet Volume 8.5 um3 N 7.4-10.4 Inr/Protime 05/14/2018 [facility] Inr 2.45 High 0.77-1.02 [address] [place] [address] [phone] Comp Metabolic 05/14/2018 [facility] Sodium 137 mmol/L N 135- 145 Panel [address] [place] [address] [phone] Potassium 4.2 mmol/L N 3.5-5.0 Chloride 105 mmol/L N 101-111 Co2 Carbon Dioxide 27 mmol/L N 22-32 Anion Gap 5 mmol/L N 2-11 Glucose 94 mg/dL N 70-100 Blood Urea Nitrogen 19 mg/dL N 6-24 Creatinine 1.21 mg/dL High 0.67-1.17 BUN/Creatinine Ratio 15.7 N 8-20 Calcium 9.0 mg/dL N 8.6-10.3 Total Protein 6.4 g/dL N 6.4-8.9 Albumin 4.3 g/dL N 3.2-5.2 Globulin 2.1 g/dL N 2-4 Albumin/Globulin Ratio 2.0 N 1-3 Total Bilirubin 0.80 mg/dL N 0.2-1.0 Alkaline Phosphatase 60 U/L N 34-104 Alt 11 U/L N 7-52 Ast 21 U/L N 13-39 Egfr Non- 60.8 >60 Egfr 73.5 >60 22 Laboratory test 05/14/2018 [facility] Magnesium 2.2 mg/dL N 1.9-2.7 finding [address] [place] [address] [phone] C Reactive Protein 1.69 mg/L N <8.01 LD Isoenzymes 05/14/2018 [facility] LDH 324 U/L Abnormal 122 - 222 [address] [place] [address] [phone] LD 1 37.0 % Abnormal 17.5-28.3 LD 2 36.3 % 30.4-36.4 LD 3 15.4 % Abnormal 19.2-24.8 LD 4 6.4 % Abnormal 9.6-15.6 LD 5 4.9 % Abnormal 5.5-12.7 23 LD Isoenzymes 04/16/2018 [facility] LDH 336 U/L Abnormal 122 - 222 [address] [place] [address] [phone] LD 1 37.9 % Abnormal 17.5-28.3 LD 2 36.2 % 30.4-36.4 LD 3 14.6 % Abnormal 19.2-24.8 LD 4 5.1 % Abnormal 9.6-15.6 LD 5 6.2 % 5.5-12.7 24 CBC No Diff 04/16/2018 [facility] [facility] White Blood 6.3 10^3/uL N 3.5-10.[address] [place] [address] [phone] Red Blood Count 4.25 10^6/uL N 4.00-5.40 Hemoglobin 9.0 g/dL Low 14.0-18.0 Hematocrit 29 % Low 42-52 Mean Corpuscular Volume 68 fL Low 80-94 Mean Corpuscular Hemoglobin 21 pg Low 27-31 Mean Corpuscular HGB Conc 31 g/dL N 31-36 Red Cell Distribution Width 19 % High 10.5-15 Platelet Count 270 10^3/uL N 150-450 Mean Platelet Volume 8.4 um3 N 7.4-10.4 Laboratory test 04/16/2018 [facility] Magnesium 2.3 mg/dL N 1.9-2.7 25 finding 101 [place] [address] [phone] C Reactive Protein 1.52 mg/L N <8.01 26 Comp Metabolic Panel 04/16/2018 [facility] Sodium 138 mmol/L N 135-[address] [place] [phone] Potassium 4.2 mmol/L N 3.5-5.0 Chloride 105 mmol/L N 101-111 Co2 Carbon Dioxide 26 mmol/L N 22-32 Anion Gap 7 mmol/L N 2-11 Glucose 95 mg/dL N 70-100 Blood Urea Nitrogen 24 mg/dL N 6-24 Creatinine 1.36 mg/dL High 0.67-1.17 BUN/Creatinine Ratio 17.6 N 8-20 Calcium 8.9 mg/dL N 8.6-10.3 Total Protein 6.5 g/dL N 6.4-8.9 Albumin 4.2 g/dL N 3.2-5.2 Globulin 2.3 g/dL N 2-4 Albumin/Globulin Ratio 1.8 N 1-3 Total Bilirubin 0.70 mg/dL N 0.2-1.0 Alkaline Phosphatase 64 U/L N 34-104 Alt 12 U/L N 7-52 Ast 19 U/L N 13-39 Egfr Non- 53.1 >60 Egfr 64.2 >60 27 Inr/Protime 04/16/2018 [facility] Inr 2.38 High 0.77-1.[address] [place] [address] [phone] LD Isoenzymes 04/06/2018 [facility] LDH 374 U/L Abnormal 122 - [address] [place] [address] [phone] LD 1 34.9 % Abnormal 17.5-28.3 LD 2 35.0 % 30.4-36.4 LD 3 16.4 % Abnormal 19.2-24.8 LD 4 6.8 % Abnormal 9.6-15.6 LD 5 6.9 % 5.5-12.7 28 Stool Occult 04/06/2018 [facility] Stool Occult SEE RESULT [address] [facility] Blood, [place] [address] [phone] Laboratory test 04/06/2018 [facility] Ferritin 9.5 ng/mL Low 24-[address] [place] [address] [phone] Iron & Iron 04/06/2018 [facility] Iron 21 g/dL Low 50-[address] [place] [address] [phone] Unsaturated Iron Binding 381 g/dL Total Iron Binding Capacity 402 g/dL N 250-450 Transferrin 287 mg/dL N 203-362 % Iron Saturation 5 % Low 15-55 CBC No Diff 04/06/2018 [facility] White Blood 8.7 10^3/uL N 3.5-10.8 [address] [place] [address] [phone] Red Blood Count 4.03 10^6/uL N 4.00-5.40 Hemoglobin 8.8 g/dL Low 14.0-18.0 Hematocrit 27 % Low 42-52 Mean Corpuscular Volume 68 fL Low 80-94 30 Mean Corpuscular Hemoglobin 22 pg Low 27-31 Mean Corpuscular HGB Conc 32 g/dL N 31-36 Red Cell Distribution Width 19 % High 10.5-15 Platelet Count 248 10^3/uL N 150-450 Mean Platelet Volume 8.1 um3 N 7.4-10.4 Laboratory test 04/06/2018 [facility] Magnesium 2.1 mg/dL N 1.9-2.7 31 finding 101 [place] [address] [phone] C Reactive Protein 7.77 mg/L N <8.01 32 Inr/Protime 04/06/2018 [facility] Inr 1.60 High 0.77-1.02 [address] [place] [address] [phone] Comp Metabolic 04/06/2018 [facility] Sodium 136 mmol/L N 135- 145 Panel 101 [place] [address] [phone] Potassium 4.1 mmol/L N 3.5-5.0 Chloride 103 mmol/L N 101-111 Co2 Carbon Dioxide 25 mmol/L N 22-32 Anion Gap 8 mmol/L N 2-11 Glucose 99 mg/dL N 70-100 Blood Urea Nitrogen 19 mg/dL N 6-24 Creatinine 1.25 mg/dL High 0.67-1.17 BUN/Creatinine Ratio 15.2 N 8-20 Calcium 8.9 mg/dL N 8.6-10.3 Total Protein 6.3 g/dL Low 6.4-8.9 Albumin 4.1 g/dL N 3.2-5.2 Globulin 2.2 g/dL N 2-4 Albumin/Globulin Ratio 1.9 N 1-3 Total Bilirubin 0.70 mg/dL N 0.2-1.0 Alkaline Phosphatase 62 U/L N 34-104 Alt 10 U/L N 7-52 Ast 20 U/L N 13-39 Egfr Non- 58.5 >60 Egfr 70.8 >60 33 Retic Count 01/03/2018 [facility] Retic Count 1.7 % High 0.5- 1.5 [address] [place] [address] [phone] Corrected Retic Count 1.2 % N 0.5-1.5 Maturation Factor Retic 1.5 Retic Index 0.80 Mean Retic Volume 105.2 Immature Retic Fraction 0.47 RBC Retic Count 4.37 10^6/uL Low 4.6-6.2 Hematocrit for Retic CNT 33 % Low 42-52 Laboratory test 01/03/2018 [facility] Ferritin 11.2 ng/mL Low 24-[address] [place] [address] [phone] CBC No Diff 01/03/2018 [facility] White Blood 10.6 N 3.5-10.[address] Count 10^3/[place] [address] [phone] Red Blood Count 4.36 10^6/uL N 4.0-5.4 Hemoglobin 10.6 g/dL Low 14.0-18.0 Hematocrit 33 % Low 42-52 Mean Corpuscular Volume 76 fL Low 80-94 Mean Corpuscular Hemoglobin 24 pg Low 27-31 Mean Corpuscular HGB Conc 32 g/dL N 31-36 Red Cell Distribution Width 18 % High 10.5-15 Platelet Count 226 10^3/uL N 150-450 Mean Platelet Volume 8.4 um3 N 7.4-10.4 Inr/Protime 01/03/2018 [facility] Inr 2.57 High 0.77-1.[address] [place] [address] [phone] Comp Metabolic 01/03/2018 [facility] Sodium 137 mmol/L Low 139 -145 Panel 101 [place] [address] [phone] Potassium 4.4 mmol/L N 3.5-5.0 Chloride 107 mmol/L N 101-111 Co2 Carbon Dioxide 23 mmol/L N 22-32 Anion Gap 7 mmol/L N 2-11 Glucose 88 mg/dL N 70-100 Blood Urea Nitrogen 28 mg/dL High 6-24 Creatinine 1.58 mg/dL High 0.67-1.17 BUN/Creatinine Ratio 17.7 N 8-20 Calcium 8.9 mg/dL N 8.6-10.3 Total Protein 6.2 g/dL Low 6.4-8.9 Albumin 4.1 g/dL N 3.2-5.2 Globulin 2.1 g/dL N 2-4 Albumin/Globulin Ratio 2.0 N 1-3 Total Bilirubin 0.70 mg/dL N 0.2-1.0 Alkaline Phosphatase 80 U/L N 34-104 Alt 11 U/L N 7-52 Ast 22 U/L N 13-39 Egfr Non- 44.7 >60 Egfr 57.4 >60 34 Laboratory test 01/03/2018 [facility] Magnesium 2.2 mg/dL N 1.9-2.7 35 finding [facility] [place] [address] [phone] C Reactive Protein 3.47 mg/L N < 5.00 36 LD Isoenzymes 01/03/2018 [facility] LDH 339 U/L Abnormal 122 - 222 [facility] [place], [place] [address] [phone] LD 1 34.2 % Abnormal 17.5-28.3 LD 2 34.4 % 30.4-36.4 LD 3 15.6 % Abnormal 19.2-24.8 LD 4 6.9 % Abnormal 9.6-15.6 LD 5 8.9 % 5.5-12.7 37 Laboratory 11/13/2017 [facility] Hepatitis C Nonreactive Nonreactive test finding [facility] [place] [place] [address] [phone] Laboratory 10/30/2017 [facility] TSH (Thyroid 2.14 mcIU/mL N 0.34-5.60 38 test finding [facility] Stim [place]orm) [place] [address] [phone] Lipid Profile 10/30/2017 [facility] Triglycerides 78 mg/dL 39 (Trig/Chol/HD [facility] [place]) [place] [address] [phone] Cholesterol 162 mg/dL 40 HDL Cholesterol 49.9 mg/dL 41 LDL Cholesterol 97 mg/dL 42 Basic Metabolic Panel 10/30/2017 [facility] Sodium 136 mmol/L N 133-145 [facility] [place] [place] [address] [phone] Potassium 4.3 mmol/L N 3.5-5.0 Chloride 102 mmol/L N 101-111 Co2 Carbon Dioxide 29 mmol/L N 22-32 Anion Gap 5 mmol/L N 2-11 Glucose 88 mg/dL N 70-100 Blood Urea Nitrogen 20 mg/dL N 6-24 Creatinine 1.13 mg/dL N 0.67-1.17 BUN/Creatinine Ratio 17.7 N 8-20 Calcium 9.3 mg/dL N 8.6-10.3 Egfr Non- 65.8 >60 Egfr 84.6 >60 43 Laboratory test 10/30/2017 [facility] Ferritin 15.2 ng/mL Low 24-336 [address] [place] [address] [phone] Iron & Iron 10/30/2017 [facility] Iron 73 g/dL N 50-212 Binding Capacity [address] [place] [address] [phone] Unsaturated Iron Binding 343 g/dL Total Iron Binding Capacity 416 g/dL N 250-450 % Iron Saturation 18 % N 15-55 CBC Auto Diff 10/30/2017 [facility] White Blood 5.5 10^3/uL N 3.5-10.[address] [place] [address] [phone] Red Blood Count 4.00 10^6/uL N 4.0-5.4 Hemoglobin 9.8 g/dL Low 14.0-18.0 Hematocrit 31 % Low 42-52 Mean Corpuscular Volume 77 fL Low 80-94 Mean Corpuscular Hemoglobin 25 pg Low 27-31 Mean Corpuscular HGB Conc 32 g/dL N 31-36 Red Cell Distribution Width 18 % High 10.5-15 Platelet Count 228 10^3/uL N 150-450 Mean Platelet Volume 8 um3 N 7.4-10.4 Abs Neutrophils 4.2 10^3/uL N 1.5-7.7 Abs Lymphocytes 0.5 10^3/uL Low 1.0-4.8 Abs Monocytes 0.7 10^3/uL N 0-0.8 Abs Eosinophils 0.1 10^3/uL N 0-0.6 Abs Basophils 0.1 10^3/uL N 0-0.2 Abs Nucleated RBC 0 10^3/uL Granulocyte % 76.5 % N 38-83 Lymphocyte % 9.0 % Low 25-47 Monocyte % 12.4 % High 1-9 Eosinophil % 1.1 % N 0-6 Basophil % 1.0 % N 0-2 Nucleated Red Blood Cells % 0.1 Laboratory test 10/21/2016 [facility] TSH (Thyroid 2.90 mcIU/mL N 0.34-5.60 [address] Stim [place]orm) [place] [address] [phone] CBC Auto Diff 07/15/2016 [facility] White Blood 6.6 10^3/uL N 3.5-10.[address] [place] [address] [phone] Red Blood Count 4.04 10^6/uL N 4.0-5.4 Hemoglobin 11.7 g/dL Low 14.0-18.0 Hematocrit 35 % Low 42-52 Mean Corpuscular Volume 87 fL N 80-94 Mean Corpuscular Hemoglobin 29 pg N 27-31 Mean Corpuscular HGB Conc 33 g/dL N 31-36 Red Cell Distribution Width 16 % High 10.5-15 Platelet Count 218 10^3/uL N 150-450 Mean Platelet Volume 8 um3 N 7.4-10.4 Abs Neutrophils 5.2 10^3/uL N 1.5-7.7 Abs Lymphocytes 0.5 10^3/uL Low 1.0-4.8 Abs Monocytes 0.7 10^3/uL N 0-0.8 Abs Eosinophils 0.1 10^3/uL N 0-0.6 Abs Basophils 0.1 10^3/uL N 0-0.2 Abs Nucleated RBC 0 10^3/uL N Granulocyte % 78.8 % N 38-83 Lymphocyte % 7.6 % Low 25-47 Monocyte % 11.2 % High 1-9 Eosinophil % 1.6 % N 0-6 Basophil % 0.8 % N 0-2 Nucleated Red Blood Cells % 0 N Inr/Protime 07/15/2016 [facility] Inr 2.66 High 0.89-1.[address] [place] [address] [phone] Laboratory test 09/01/2015 [facility] Inr/Protim 2.56 High 0.89-1.11 46, [address] [place] [address] [phone] Laboratory test 08/25/2015 [facility] Inr/Protim 2.32 High 0.89-1.[address] [place] [address] [phone] Comp Metabolic 08/18/2015 [facility] Sodium 136 N 133-[address] mmol/[place] [address] [phone] Potassium 4.6 mmol/L N 3.5-5.0 Chloride 102 mmol/L N 101-111 Co2 Carbon Dioxide 29 mmol/L N 22-32 Anion Gap 5 mmol/L N 2-11 Glucose 95 mg/dL N 70-100 Blood Urea Nitrogen 20 mg/dL N 6-24 Creatinine 1.39 mg/dL High 0.67-1.17 BUN/Creatinine Ratio 14.4 N 8-20 Calcium 9.2 mg/dL N 8.6-10.3 Total Protein 6.5 g/dL N 6.4-8.9 Albumin 4.1 g/dL N 3.2-5.2 Globulin 2.4 g/dL N 2-4 Albumin/Globulin Ratio 1.7 N 1-3 Total Bilirubin 0.60 mg/dL N 0.2-1.0 Alkaline Phosphatase 81 U/L N 34-104 Alt 20 U/L N 7-52 Ast 21 U/L N 13-39 Egfr Non- 52.3 N >60 Egfr 67.3 N >60 49 Laboratory test 08/18/2015 [facility] B-Type 1527 pg/mL High [address] [place] [address] Peptide BNP [phone] Inr/Protime 08/18/2015 [facility] Inr 1.81 High 0.89- [address] 1.11 [place] [address] [phone] CBC No Diff 08/18/2015 [facility] White Blood 5.2 N 4.8-[address] Count 10^3/uL 0.8 [place] [address] [phone] Red Blood Count 3.93 10^6/uL Low 4.0-5.4 Hemoglobin 12.0 g/dL Low 14.0-18.0 Hematocrit 37 % Low 42-52 Mean Corpuscular Volume 94 fL N 80-94 Mean Corpuscular Hemoglobin 31 pg N 27-31 Mean Corpuscular HGB Conc 32 g/dL N 31-36 Red Cell Distribution Width 20 % High 10.5-15 Platelet Count 170 10^3/uL N 150-450 Mean Platelet Volume 9 um3 N 7.4-10.4 Protime W/ Inr 08/13/2015 [facility] Inr 1.17 Laboratory test 08/06/2015 [facility] Inr/Protime 2.22 High 0.89-1.1 [address] [place] [address] [phone] CBC No Diff 08/06/2015 [facility] White Blood 4.9 10^3/uL N 4.8-10.[address] [place] [address] [phone] Red Blood Count 3.97 10^6/uL Low 4.0-5.4 Hemoglobin 12.0 g/dL Low 14.0-18.0 Hematocrit 37 % Low 42-52 Mean Corpuscular Volume 93 fL N 80-94 Mean Corpuscular Hemoglobin 30 pg N 27-31 Mean Corpuscular HGB Conc 33 g/dL N 31-36 Red Cell Distribution Width 22 % High 10.5-15 Platelet Count 170 10^3/uL N 150-450 Mean Platelet Volume 9 um3 N 7.4-10.4 Comp Metabolic Panel 08/06/2015 [facility] Sodium 137 mmol/L N 133-[address] [place] [address] [phone] Potassium 4.7 mmol/L N 3.5-5.0 Chloride 102 mmol/L N 101-111 Co2 Carbon Dioxide 30 mmol/L N 22-32 Anion Gap 5 mmol/L N 2-11 Glucose 93 mg/dL N 70-100 Blood Urea Nitrogen 17 mg/dL N 6-24 Creatinine 1.24 mg/dL High 0.67-1.17 BUN/Creatinine Ratio 13.7 N 8-20 Calcium 9.5 mg/dL N 8.6-10.3 Total Protein 6.5 g/dL N 6.4-8.9 Albumin 4.2 g/dL N 3.2-5.2 Globulin 2.3 g/dL N 2-4 Albumin/Globulin Ratio 1.8 N 1-3 Total Bilirubin 0.90 mg/dL N 0.2-1.0 Alkaline Phosphatase 81 U/L N 34-104 Alt 19 U/L N 7-52 Ast 21 U/L N 13-39 Egfr Non- 59.7 N >60 Egfr 76.7 N >60 53 Laboratory test 08/06/2015 [facility] B-Type 1585 pg/mL High [address] [place] [address] Peptide BNP [phone] Laboratory test 07/30/2015 [facility] Inr/Protime 1.77 High 0.89- [address] 1[address]11 [place] [address] [phone] Laboratory test 07/23/2015 [facility] Inr/Protime 1.25 High 0.78- finding [address] 1[address]07 [place] [address] [phone] CBC No Diff 07/16/2015 [facility] White Blood 6.9 N 4.8-[address] Count 10^3/uL 0.8 [place] [address] [phone] Red Blood Count 4.10 10^6/uL N 4.0-5.4 Hemoglobin 11.7 g/dL Low 14.0-18.0 Hematocrit 37 % Low 42-52 Mean Corpuscular Volume 89 fL N 80-94 Mean Corpuscular Hemoglobin 29 pg N 27-31 Mean Corpuscular HGB Conc 32 g/dL N 31-36 Red Cell Distribution Width 21 % High 10.5-15 Platelet Count 167 10^3/uL N 150-450 Mean Platelet Volume 9 um3 N 7.4-10.4 Inr/Protime 07/16/2015 [facility] Inr 1.12 High 0.78-1.[address] [place] [address] [phone] Laboratory test 07/16/2015 [facility] Partial 49.8 High 26.0- 36.[address] [place] [address] Time PTT [phone] Laboratory test 07/10/2015 [facility] Inr/Protime 2.57 High 0.78-1.07 [address] [place] [address] [phone] Laboratory test 07/03/2015 [facility] Inr/Protime 3.72 High 0.78-1.07 [address] [place] [address] [phone] CBC No Diff 06/30/2015 [facility] White Blood 6.7 10^3/uL N 4.8-10.[address] [place] [address] [phone] Red Blood Count 4.64 10^6/uL N 4.0-5.4 Hemoglobin 13.1 g/dL Low 14.0-18.0 Hematocrit 40 % Low 42-52 Mean Corpuscular Volume 87 fL N 80-94 Mean Corpuscular Hemoglobin 28 pg N 27-31 Mean Corpuscular HGB Conc 32 g/dL N 31-36 Red Cell Distribution Width 21 % High 10.5-15 Platelet Count 162 10^3/uL N 150-450 Mean Platelet Volume 9 um3 N 7.4-10.4 Laboratory test 06/30/2015 [facility] B-Type 2254 pg/mL High [address] [place] [address] Peptide BNP [phone] Comp Metabolic 06/30/2015 [facility] Sodium 134 mmol/L N 133- [address] [place] [address] [phone] Potassium 5.3 mmol/L High 3.5-5.0 Chloride 102 mmol/L N 101-111 Co2 Carbon Dioxide 28 mmol/L N 22-32 Anion Gap 4 mmol/L N 2-11 Glucose 92 mg/dL N 70-100 Creatinine 1.22 mg/dL High 0.67-1.17 Calcium 9.3 mg/dL N 8.6-10.3 Albumin 4.0 g/dL N 3.2-5.2 Alkaline Phosphatase 77 U/L N 34-104 Alt 23 U/L N 7-52 Ast 25 U/L N 13-39 Egfr Non- 60.8 N >60 Egfr 78.2 N >60 59 Blood Urea Nitrogen 34 mg/dL High 6-24 BUN/Creatinine Ratio 27.9 High 8-20 Total Protein 6.9 g/dL N 6.4-8.9 Globulin 2.9 g/dL N 2-4 Albumin/Globulin Ratio 1.4 N 1-3 Total Bilirubin 0.90 mg/dL N 0.2-1.0 Laboratory test 06/26/2015 [facility] Inr/Protime 2.67 High 0.78-1.07 [address] [place] [address] [phone] CBC No Diff 06/19/2015 [facility] White Blood 5.4 N 4.8-10.[address] Count 10^3/[place] [address] [phone] Red Blood Count 4.94 10^6/uL N 4.0-5.4 Hemoglobin 13.7 g/dL Low 14.0-18.0 Hematocrit 43 % N 42-52 Mean Corpuscular Volume 88 fL N 80-94 Mean Corpuscular Hemoglobin 28 pg N 27-31 Mean Corpuscular HGB Conc 32 g/dL N 31-36 Red Cell Distribution Width 20 % High 10.5-15 Platelet Count 226 10^3/uL N 150-450 Mean Platelet Volume 9 um3 N 7.4-10.4 Inr/Protime 06/19/2015 [facility] Inr 1.78 High 0.78-1.[address] [place] [address] [phone] Laboratory test 06/19/2015 [facility] B-Type 2524 High [address] Natriuretic pg/[place] [address] Peptide BNP [phone] Comp Metabolic 06/19/2015 [facility] Albumin 4.2 g/dL N 3.2- 5.[address] [place] [address] [phone] Total Bilirubin 1.00 mg/dL N 0.2-1.0 Sodium 131 mmol/L Low 133-145 Potassium 5.4 mmol/L High 3.5-5.0 Chloride 97 mmol/L Low 101-111 Co2 Carbon Dioxide 27 mmol/L N 22-32 Anion Gap 7 mmol/L N 2-11 Glucose 88 mg/dL N 70-100 Blood Urea Nitrogen 49 mg/dL High 6-24 Creatinine 1.37 mg/dL High 0.67-1.17 BUN/Creatinine Ratio 35.8 High 8-20 Calcium 9.5 mg/dL N 8.6-10.3 Total Protein 7.2 g/dL N 6.4-8.9 Globulin 3.0 g/dL N 2-4 Albumin/Globulin Ratio 1.4 N 1-3 Alkaline Phosphatase 97 U/L N 34-104 Alt 23 U/L N 7-52 Ast 25 U/L N 13-39 Egfr Non- 53.2 N >60 Egfr 68.4 N >60 62 Laboratory test 06/12/2015 [facility] Inr/Protime 1.48 High 0.78-1.[address] [place] [address] [phone] Laboratory test 06/08/2015 [facility] Inr/Protime 1.17 High 0.78-1.07 [address] [place] [address] [phone] Protime W/ Inr 06/02/2015 [facility] Inr 1.27 CBC No Diff 05/27/2015 [facility] White Blood 5.7 N 4.8-10.[address] Count 10^3/[place] [address] [phone] Red Blood Count 5.22 10^6/uL N 4.0-5.4 Hemoglobin 14.1 g/dL N 14.0-18.0 Hematocrit 46 % N 42-52 Mean Corpuscular Volume 89 fL N 80-94 Mean Corpuscular Hemoglobin 27 pg N 27-31 Mean Corpuscular HGB Conc 30 g/dL Low 31-36 Red Cell Distribution Width 19 % High 10.5-15 Platelet Count 155 10^3/uL N 150-450 Mean Platelet Volume 12 um3 High 7.4-10.4 Comp Metabolic Panel 05/27/2015 [facility] Sodium 131 mmol/L Low 133-[address] [place] [address] [phone] Potassium 4.8 mmol/L N 3.5-5.0 Chloride 99 mmol/L Low 101-111 Co2 Carbon Dioxide 25 mmol/L N 22-32 Anion Gap 7 mmol/L N 2-11 Glucose 115 mg/dL High 70-100 Blood Urea Nitrogen 40 mg/dL High 6-24 Creatinine 1.63 mg/dL High 0.67-1.17 BUN/Creatinine Ratio 24.5 High 8-20 Calcium 9.1 mg/dL N 8.6-10.3 Total Protein 6.5 g/dL N 6.4-8.9 Albumin 3.7 g/dL N 3.2-5.2 Globulin 2.8 g/dL N 2-4 Albumin/Globulin Ratio 1.3 N 1-3 Total Bilirubin 3.60 mg/dL High 0.2-1.0 Alkaline Phosphatase 101 U/L N 34-104 Alt 14 U/L N 7-52 Ast 23 U/L N 13-39 Egfr Non- 43.5 N >60 Egfr 56.0 N >60 64 Inr/Protime 05/27/2015 [facility] Inr 5.57 High 0.78-1.[address] [place], [place] [address] [phone] Laboratory test 05/27/2015 [facility] B-Type 8081 High [address] Natriuretic pg/[place] [address] Peptide BNP [phone] Inr/Protime 05/13/2015 [facility] Inr 3.19 High 0.78-1.[address] [place] [address] [phone] Comp Metabolic 05/13/2015 [facility] Sodium 138 N 133-[address] mmol/[place] [address] [phone] Potassium 4.6 mmol/L N 3.5-5.0 Chloride 104 mmol/L N 101-111 Co2 Carbon Dioxide 28 mmol/L N 22-32 Anion Gap 6 mmol/L N 2-11 Glucose 111 mg/dL High 70-100 Blood Urea Nitrogen 35 mg/dL High 6-24 Creatinine 1.40 mg/dL High 0.67-1.17 BUN/Creatinine Ratio 25.0 High 8-20 Calcium 8.7 mg/dL N 8.6-10.3 Total Protein 6.0 g/dL Low 6.4-8.9 Albumin 3.6 g/dL N 3.2-5.2 Globulin 2.4 g/dL N 2-4 Albumin/Globulin Ratio 1.5 N 1-3 Total Bilirubin 2.20 mg/dL High 0.2-1.0 Alkaline Phosphatase 96 U/L N 34-104 Alt 15 U/L N 7-52 Ast 20 U/L N 13-39 Egfr Non- 51.9 N >60 Egfr 66.7 N >60 66 Lipid Profile 05/13/2015 [facility] Triglycerides 235 mg/dL N 67 (Trig/Chol/HDL) [address] [place] [address] [phone] Cholesterol 114 mg/dL N 68 HDL Cholesterol 22.4 mg/dL N 69 LDL Cholesterol 45 mg/dL N 70 Laboratory test 05/13/2015 [facility] TSH (Thyroid 2.68 ?IU/mL N 0.34-5.[address] Stim Horm) [place] [address] [phone] Urinalysis 05/13/2015 [facility] Urine Color Yellow N Profile [address] [place] [address] [phone] Urine Appearance Clear N Urine Specific [place] 1.017 N 1.010-1.030 Urine pH 6.0 N 5-9 Urine Urobilinogen Negative N Negative Urine Ketones Negative N Negative Urine Protein 2+(100 mg/dL) Abnormal Negative Urine Leukocytes Negative N Negative Urine Blood Negative N Negative Urine Nitrite Negative N Negative Urine Bilirubin Negative N Negative Urine Glucose Negative N Negative Urine White Blood Cell Trace(0-5/hpf) N Absent Urine Red Blood Cell Absent N Absent Urine Bacteria Absent N Absent Inr/Protime 05/01/2015 [facility] Inr 5.63 High 0.78-1.07 71 [address] [place] [address] [phone] Basic Metabolic 04/10/2015 Sodium 137 mmol/L N 133-145 Panel Potassium 4.2 mmol/L N 3.5-5.0 Chloride 105 mmol/L N 101-111 Co2 Carbon Dioxide 26 mmol/L N 22-32 Anion Gap 6 mmol/L N 2-11 Glucose 167 mg/dL High 70-100 Blood Urea Nitrogen 34 mg/dL High 6-24 Creatinine 1.23 mg/dL High 0.67-1.17 BUN/Creatinine Ratio 27.6 High 8-20 Calcium 8.4 mg/dL Low 8.6-10.3 Egfr Non- 60.2 N >60 Egfr 77.5 N >60 72 Laboratory test 03/23/2015 [facility] Potassium 4.9 mmol/L N 3.5-5.[address] [place] [address] [phone] Laboratory test 03/23/2015 [facility] Inr/Protime 4.95 High 0.78-1.07 finding [address] [place] [address] [phone] B-Type Natriuretic Peptide BNP 4154 pg/mL High 73 Digoxin 1.6 ng/ml N 0.8-2.0 Potassium Redraw TNP mmol/L N 3.5-5.0 74 CBC Auto Diff 03/23/2015 [facility] White Blood 6.5 10^3/uL N 4.8-10.[address] [place] [address] [phone] Red Blood Count 4.79 10^6/uL N 4.0-5.4 Hemoglobin 13.7 g/dL Low 14.0-18.0 Hematocrit 44 % N 42-52 Mean Corpuscular Volume 91 fL N 80-94 Mean Corpuscular Hemoglobin 29 pg N 27-31 Mean Corpuscular HGB Conc 31 g/dL N 31-36 Red Cell Distribution Width 15 % N 10.5-15 Platelet Count 170 10^3/uL N 150-450 Mean Platelet Volume 11 um3 High 7.4-10.4 Abs Neutrophils 5.2 10^3/uL N 1.5-7.7 Abs Lymphocytes 0.7 10^3/uL Low 1.0-4.8 Abs Monocytes 0.6 10^3/uL N 0-0.8 Abs Eosinophils 0 10^3/uL N 0-0.6 Abs Basophils 0.1 10^3/uL N 0-0.2 Abs Nucleated RBC 0 10^3/uL N Granulocyte % 79.2 % N 38-83 Lymphocyte % 10.4 % Low 25-47 Monocyte % 9.1 % High 1-9 Eosinophil % 0.3 % N 0-6 Basophil % 1.0 % N 0-2 Nucleated Red Blood Cells % 0 N Laboratory test 03/23/2015 [facility] B-Type 2696 pg/mL High [address] [place] [address] Peptide BNP [phone] Basic Metabolic 03/23/2015 [facility] Sodium 134 mmol/L N 133- [address] [place] [address] [phone] Chloride 106 mmol/L N 101-111 Co2 Carbon Dioxide 24 mmol/L N 22-32 Glucose 87 mg/dL N 70-100 Blood Urea Nitrogen 44 mg/dL High 6-24 Creatinine 1.20 mg/dL High 0.67-1.17 BUN/Creatinine Ratio 36.7 High 8-20 Calcium 8.6 mg/dL N 8.6-10.3 Egfr Non- 62.0 N >60 Egfr 79.7 N >60 77 Potassium TNP mmol/L N 3.5-5.0 78 Anion Gap TNP mmol/L N 2-11 Laboratory test 03/23/2015 [facility] Digoxin TNP ng/ml N 0.8- 2.0 [address] [place] [address] [phone] 1 Because ethnic data is not always readily available, this report includes an eGFR for both -Americans and non- Americans. The National Kidney Disease Education Program (NKDEP) does not endorse the use of the MDRD equation for patients that are not between the ages of 18 and 70, are , have extremes of body size, muscle mass, or nutritional status, or are non- or non-. According to the [employer], irrespective of diagnosis, the stage of the disease is based on the level of kidney function: Stage Description GFR(mL/min/1.73 m(2)) 1 Kidney damage with normal or decreased GFR 90 2 Kidney damage with mild decrease in GFR 60-89 3 Moderate decrease in GFR 30-59 4 Severe decrease in GFR 15-29 5 Kidney failure <15 (or dialysis) 2 ORDERED 10/05/18 ENTERED 10/05/18 EXPIRES 04/04/19 CC. JUSTINE STEWART JOHN PAUL FAX RESULTS TO:[id number] 3 ORDERED 10/05/18 ENTERED 10/05/18 EXPIRES 04/04/19 CC. JUSTINE STEWART JOHN PAUL FAX RESULTS TO:[id number] 4 Desirable: <150 Borderline High: 150-199 High: 200-499 Very High: >500 5 Desirable: <200 Borderline High: 200-239 High: >239 6 Low: <40 Desirable: 40-60 High: >60 7 Desirable: <100 Near Optimal: 100-129 Borderline High: 130-159 High: 160-189 Very High: >189 8 Test Performed by: [facility] [address] [place] [address] 9 Test Performed by: [facility] [address] [place] [address] 10 ORDERED 03/30/18 EXP 09/30/18 CC:JUSTINE STEWART CC:MALGORZATA SALOMON FAX RESULTS TO: [id number] 11 ORDERED 03/30/18 EXP 09/30/18 CC:JUSTINE STEWART CC:MALGORZATA SALOMON FAX RESULTS TO: [id number] 12 Because ethnic data is not always readily available, this report includes an eGFR for both -Americans and non- Americans. The National Kidney Disease Education Program (NKDEP) does not endorse the use of the MDRD equation for patients that are not between the ages of 18 and 70, are , have extremes of body size, muscle mass, or nutritional status, or are non- or non-. According to the National Kidney Foundation, irrespective of diagnosis, the stage of the disease is based on the level of kidney function: Stage Description GFR(mL/min/1.73 m(2)) 1 Kidney damage with normal or decreased GFR 90 2 Kidney damage with mild decrease in GFR 60-89 3 Moderate decrease in GFR 30-59 4 Severe decrease in GFR 15-29 5 Kidney failure <15 (or dialysis) 13 Because ethnic data is not always readily available, this report includes an eGFR for both -Americans and non- Americans. The National Kidney Disease Education Program (NKDEP) does not endorse the use of the MDRD equation for patients that are not between the ages of 18 and 70, are , have extremes of body size, muscle mass, or nutritional status, or are non- or non-. According to the National Kidney Foundation, irrespective of diagnosis, the stage of the disease is based on the level of kidney function: Stage Description GFR(mL/min/1.73 m(2)) 1 Kidney damage with normal or decreased GFR 90 2 Kidney damage with mild decrease in GFR 60-89 3 Moderate decrease in GFR 30-59 4 Severe decrease in GFR 15-29 5 Kidney failure <15 (or dialysis) 14 ORDERED 03/30/18 EXP 09/30/18 CC:JUSTINE STEWART CC:MALGORZATA SALOMON FAX RESULTS TO: [id number] 15 ORDERED 03/30/18 EXP 09/30/18 CC:JUSTINE STEWART CC:MALGORZATA SALOMON FAX RESULTS TO: [id number] 16 Test Performed by: [facility] [address] [place] [address] 17 Test Performed by: [facility] [address] [place] [address] 18 Because ethnic data is not always readily available, this report includes an eGFR for both -Americans and non- Americans. The National Kidney Disease Education Program (NKDEP) does not endorse the use of the MDRD equation for patients that are not between the ages of 18 and 70, are , have extremes of body size, muscle mass, or nutritional status, or are non- or non-. According to the National Kidney Foundation, irrespective of diagnosis, the stage of the disease is based on the level of kidney function: Stage Description GFR(mL/min/1.73 m(2)) 1 Kidney damage with normal or decreased GFR 90 2 Kidney damage with mild decrease in GFR 60-89 3 Moderate decrease in GFR 30-59 4 Severe decrease in GFR 15-29 5 Kidney failure <15 (or dialysis) 19 ORDERED 03/30/18 EXP 09/30/18 CC:JUSTINE STEWART CC:MALGORZATA SALOMON FAX RESULTS TO: [id number] 20 ORDERED 03/30/18 EXP 09/30/18 CC:JUSTINE STEWART CC:MALGORZATA SALOMON FAX RESULTS TO: [id number] 21 Consistent with Previous Results Reported on 04/16/18 22 Because ethnic data is not always readily available, this report includes an eGFR for both -Americans and non- Americans. The National Kidney Disease Education Program (NKDEP) does not endorse the use of the MDRD equation for patients that are not between the ages of 18 and 70, are , have extremes of body size, muscle mass, or nutritional status, or are non- or non-. According to the National Kidney Foundation, irrespective of diagnosis, the stage of the disease is based on the level of kidney function: Stage Description GFR(mL/min/1.73 m(2)) 1 Kidney damage with normal or decreased GFR 90 2 Kidney damage with mild decrease in GFR 60-89 3 Moderate decrease in GFR 30-59 4 Severe decrease in GFR 15-29 5 Kidney failure <15 (or dialysis) 23 Test Performed by: [facility] [address] [place] [address] 24 Test Performed by: [facility] [address] [place] [address] 25 ORDERED 03/30/18 EXP 09/30/18 CC:JUSTINE STEWART CC:MALGORZATA SALOMON FAX RESULTS TO: [id number] 26 ORDERED 03/30/18 EXP 09/30/18 CC:JUSTINE STEWART CC:MALGORZATA SALOMON FAX RESULTS TO: [id number] 27 Because ethnic data is not always readily available, this report includes an eGFR for both -Americans and non- Americans. The National Kidney Disease Education Program (NKDEP) does not endorse the use of the MDRD equation for patients that are not between the ages of 18 and 70, are , have extremes of body size, muscle mass, or nutritional status, or are non- or non-. According to the National Kidney Foundation, irrespective of diagnosis, the stage of the disease is based on the level of kidney function: Stage Description GFR(mL/min/1.73 m(2)) 1 Kidney damage with normal or decreased GFR 90 2 Kidney damage with mild decrease in GFR 60-89 3 Moderate decrease in GFR 30-59 4 Severe decrease in GFR 15-29 5 Kidney failure <15 (or dialysis) 28 Test Performed by: [facility] [address] [place] [address] 29 SEE RESULT BELOW Name: WILSONMALGORZATA : [address]: April Elmore Acct: [id number] Unit: [id number] AGE: 62 Location: [facility] Re04/06/18 SEX: M Status: REG REF SPEC: [id number] JOHN: 04/06/[address]: April Elmore REQ: [id number] RECD: 04/06/18 STATUS: COMP _ SOURCE: STOOL SPDESC: ORDERED: Occult Bl, Diag Procedure Result Reported Site Stool Occult Blood (1) Final 04/06/18- 1301 ML Stool Occult Blood Negative * ML - Main Lab . END OF REPORT DEPARTMENT OF PATHOLOGY, [address] [place] [address] Doug Marquez M.D. Director [facility] # [id number] 30 Consistent with Previous Results Reported on03/30/18 31 ORDERED 03/30/18 EXP 09/30/18 CC:JUSTINE STEWART CC:MALGORZATA SALOMON FAX RESULTS TO: [id number] 32 ORDERED 03/30/18 EXP 09/30/18 CC:JUSTINE STEWART CC:MALGORZATA SALOMON FAX RESULTS TO: [id number] 33 Because ethnic data is not always readily available, this report includes an eGFR for both -Americans and non- Americans. The National Kidney Disease Education Program (NKDEP) does not endorse the use of the MDRD equation for patients that are not between the ages of 18 and 70, are , have extremes of body size, muscle mass, or nutritional status, or are non- or non-. According to the National Kidney Foundation, irrespective of diagnosis, the stage of the disease is based on the level of kidney function: Stage Description GFR(mL/min/1.73 m(2)) 1 Kidney damage with normal or decreased GFR 90 2 Kidney damage with mild decrease in GFR 60-89 3 Moderate decrease in GFR 30-59 4 Severe decrease in GFR 15-29 5 Kidney failure <15 (or dialysis) 34 Because ethnic data is not always readily available, this report includes an eGFR for both -Americans and non- Americans. The National Kidney Disease Education Program (NKDEP) does not endorse the use of the MDRD equation for patients that are not between the ages of 18 and 70, are , have extremes of body size, muscle mass, or nutritional status, or are non- or non-. According to the National Kidney Foundation, irrespective of diagnosis, the stage of the disease is based on the level of kidney function: Stage Description GFR(mL/min/1.73 m(2)) 1 Kidney damage with normal or decreased GFR 90 2 Kidney damage with mild decrease in GFR 60-89 3 Moderate decrease in GFR 30-59 4 Severe decrease in GFR 15-29 5 Kidney failure <15 (or dialysis) 35 STANDING ORDER ENTERED 09/27/2017 EXPIRES 02/28/2018 CC: JUSTINE STEWART FAX RESULTS TO: [id number] 36 Acute inflammation: >10.00 37 Test Performed by: [address] [address] 38 FASTING 10 HOUR 39 Desirable: <150 Borderline High: 150-199 High: 200-499 Very High: >500 40 Desirable: <200 Borderline High: 200-239 High: >239 41 Low: <40 Desirable: 40-60 High: >60 42 Desirable: <100 Near Optimal: 100-129 Borderline High: 130-159 High: 160-189 Very High: >189 43 Because ethnic data is not always readily available, this report includes an eGFR for both -Americans and non- Americans. The National Kidney Disease Education Program (NKDEP) does not endorse the use of the MDRD equation for patients that are not between the ages of 18 and 70, are , have extremes of body size, muscle mass, or nutritional status, or are non- or non-. According to the National Kidney Foundation, irrespective of diagnosis, the stage of the disease is based on the level of kidney function: Stage Description GFR(mL/min/1.73 m(2)) 1 Kidney damage with normal or decreased GFR 90 2 Kidney damage with mild decrease in GFR 60-89 3 Moderate decrease in GFR 30-59 4 Severe decrease in GFR 15-29 5 Kidney failure <15 (or dialysis) 44 FASTING 10 HOUR 45 FASTING 10 HOUR Standing order 46 ENTERED: 07/23/15 EXP: 11/01/15 47 ENTERED: 07/23/15 EXP: 11/01/15 48 ENTERED: 07/23/15 EXP: 11/01/15 49 Because ethnic data is not always readily available, this report includes an eGFR for both -Americans and non- Americans. The National Kidney Disease Education Program (NKDEP) does not endorse the use of the MDRD equation for patients that are not between the ages of 18 and 70, are , have extremes of body size, muscle mass, or nutritional status, or are non- or non-. According to the National Kidney Foundation, irrespective of diagnosis, the stage of the disease is based on the level of kidney function: Stage Description GFR(mL/min/1.73 m(2)) 1 Kidney damage with normal or decreased GFR 90 2 Kidney damage with mild decrease in GFR 60-89 3 Moderate decrease in GFR 30-59 4 Severe decrease in GFR 15-29 5 Kidney failure <15 (or dialysis) 50 >100 to <200 pg/mL: likely compensated congestive heart failure (CHF) 200 to 400 pg/mL: likely moderate CHF >400 pg/mL: likely moderate to severe CHF 51 Effective immediately, due to a laboratory mean normal Protime change, the reference range for the INR has changed. 52 Effective immediately, due to a laboratory mean normal Protime change, the reference range for the INR has changed. 53 Because ethnic data is not always readily available, this report includes an eGFR for both -Americans and non- Americans. The National Kidney Disease Education Program (NKDEP) does not endorse the use of the MDRD equation for patients that are not between the ages of 18 and 70, are , have extremes of body size, muscle mass, or nutritional status, or are non- or non-. According to the National Kidney Foundation, irrespective of diagnosis, the stage of the disease is based on the level of kidney function: Stage Description GFR(mL/min/1.73 m(2)) 1 Kidney damage with normal or decreased GFR 90 2 Kidney damage with mild decrease in GFR 60-89 3 Moderate decrease in GFR 30-59 4 Severe decrease in GFR 15-29 5 Kidney failure <15 (or dialysis) 54 >100 to <200 pg/mL: likely compensated congestive heart failure (CHF) 200 to 400 pg/mL: likely moderate CHF >400 pg/mL: likely moderate to severe CHF 55 Effective immediately, due to a laboratory mean normal Protime change, the reference range for the INR has changed. 56 PRN ORDERED: 05/01/15 PRN EXP: 11/01/15 57 PRN ORDERED: 05/01/15 PRN EXP: 11/01/15 58 >100 to <200 pg/mL: likely compensated congestive heart failure (CHF) 200 to 400 pg/mL: likely moderate CHF >400 pg/mL: likely moderate to severe CHF 59 Because ethnic data is not always readily available, this report includes an eGFR for both -Americans and non- Americans. The National Kidney Disease Education Program (NKDEP) does not endorse the use of the MDRD equation for patients that are not between the ages of 18 and 70, are , have extremes of body size, muscle mass, or nutritional status, or are non- or non-. According to the National Kidney Foundation, irrespective of diagnosis, the stage of the disease is based on the level of kidney function: Stage Description GFR(mL/min/1.73 m(2)) 1 Kidney damage with normal or decreased GFR 90 2 Kidney damage with mild decrease in GFR 60-89 3 Moderate decrease in GFR 30-59 4 Severe decrease in GFR 15-29 5 Kidney failure <15 (or dialysis) 60 PRN ORDERED: 05/01/15 PRN EXP: 11/01/15 61 >100 to <200 pg/mL: likely compensated congestive heart failure (CHF) 200 to 400 pg/mL: likely moderate CHF >400 pg/mL: likely moderate to severe CHF 62 Because ethnic data is not always readily available, this report includes an eGFR for both -Americans and non- Americans. The National Kidney Disease Education Program (NKDEP) does not endorse the use of the MDRD equation for patients that are not between the ages of 18 and 70, are , have extremes of body size, muscle mass, or nutritional status, or are non- or non-. According to the National Kidney Foundation, irrespective of diagnosis, the stage of the disease is based on the level of kidney function: Stage Description GFR(mL/min/1.73 m(2)) 1 Kidney damage with normal or decreased GFR 90 2 Kidney damage with mild decrease in GFR 60-89 3 Moderate decrease in GFR 30-59 4 Severe decrease in GFR 15-29 5 Kidney failure <15 (or dialysis) 63 PRN ORDERED: 05/01/15 PRN EXP: 11/01/15 64 Because ethnic data is not always readily available, this report includes an eGFR for both -Americans and non- Americans. The National Kidney Disease Education Program (NKDEP) does not endorse the use of the MDRD equation for patients that are not between the ages of 18 and 70, are , have extremes of body size, muscle mass, or nutritional status, or are non- or non-. According to the National Kidney Foundation, irrespective of diagnosis, the stage of the disease is based on the level of kidney function: Stage Description GFR(mL/min/1.73 m(2)) 1 Kidney damage with normal or decreased GFR 90 2 Kidney damage with mild decrease in GFR 60-89 3 Moderate decrease in GFR 30-59 4 Severe decrease in GFR 15-29 5 Kidney failure <15 (or dialysis) 65 >100 to <200 pg/mL: likely compensated congestive heart failure (CHF) 200 to 400 pg/mL: likely moderate CHF >400 pg/mL: likely moderate to severe CHF 66 Because ethnic data is not always readily available, this report includes an eGFR for both -Americans and non- Americans. The National Kidney Disease Education Program (NKDEP) does not endorse the use of the MDRD equation for patients that are not between the ages of 18 and 70, are , have extremes of body size, muscle mass, or nutritional status, or are non- or non-. According to the National Kidney Foundation, irrespective of diagnosis, the stage of the disease is based on the level of kidney function: Stage Description GFR(mL/min/1.73 m(2)) 1 Kidney damage with normal or decreased GFR 90 2 Kidney damage with mild decrease in GFR 60-89 3 Moderate decrease in GFR 30-59 4 Severe decrease in GFR 15-29 5 Kidney failure <15 (or dialysis) 67 Desirable <150 Borderline high 150-199 High 200-499 Very High >500 68 Desirable <200 Borderline high 200-239 High >239 69 Low <40 Desirable: 40-60 High: >60 70 Desirable: <100 mg/dL Near Optimal: 100-129 mg/dL Borderline High: 130-159 mg/dL High: 160-189 mg/dL Very High: >189 mg/dL 71 STANDING ORDER 72 Because ethnic data is not always readily available, this report includes an eGFR for both -Americans and non- Americans. The National Kidney Disease Education Program (NKDEP) does not endorse the use of the MDRD equation for patients that are not between the ages of 18 and 70, are , have extremes of body size, muscle mass, or nutritional status, or are non- or non-. According to the National Kidney Foundation, irrespective of diagnosis, the stage of the disease is based on the level of kidney function: Stage Description GFR(mL/min/1.73 m(2)) 1 Kidney damage with normal or decreased GFR 90 2 Kidney damage with mild decrease in GFR 60-89 3 Moderate decrease in GFR 30-59 4 Severe decrease in GFR 15-29 5 Kidney failure <15 (or dialysis) 73 >100 to <200 pg/mL: likely compensated congestive heart failure (CHF) 200 to 400 pg/mL: likely moderate CHF >400 pg/mL: likely moderate to severe CHF 74 Unable to report test result due to hemolysis. 75 CALL RESULTS TO 4536 76 >100 to <200 pg/mL: likely compensated congestive heart failure (CHF) 200 to 400 pg/mL: likely moderate CHF >400 pg/mL: likely moderate to severe CHF 77 Because ethnic data is not always readily available, this report includes an eGFR for both -Americans and non- Americans. The National Kidney Disease Education Program (NKDEP) does not endorse the use of the MDRD equation for patients that are not between the ages of 18 and 70, are , have extremes of body size, muscle mass, or nutritional status, or are non- or non-. According to the National Kidney Foundation, irrespective of diagnosis, the stage of the disease is based on the level of kidney function: Stage Description GFR(mL/min/1.73 m(2)) 1 Kidney damage with normal or decreased GFR 90 2 Kidney damage with mild decrease in GFR 60-89 3 Moderate decrease in GFR 30-59 4 Severe decrease in GFR 15-29 5 Kidney failure <15 (or dialysis) 78 HEMOLIZED SPECIMEN, floor called 79 CALL RESULTS TO 4521 Procedures Date Code Description Status 12/07/2018 85646 EKG Tracing & Interpretation Completed 11/27/2018 17928 Icd Eval With Inerative Adjustmt Dual Lead System Completed 09/03/2018 21515 Icd Eval With Inerative Adjustmt Dual Lead System Completed 09/03/2018 27964 Icd Eval With Inerative Adjustmt Dual Lead System Completed 03/07/2018 85499 Icd Eval With Inerative Adjustmt Dual Lead System Completed 03/07/2018 43470 Icd Eval With Inerative Adjustmt Dual Lead System Completed 12/27/2017 48812 EKG Tracing & Interpretation Completed 11/07/2017 04716 Icd Eval With Inerative Adjustmt Dual Lead System Completed 11/07/2017 93685 Icd Eval With Inerative Adjustmt Dual Lead System Completed 06/27/2017 37017 Icd Eval With Inerative Adjustmt Dual Lead System Completed 06/09/2017 23849 EKG Tracing & Interpretation Completed 03/08/2017 67460 Icd Eval With Inerative Adjustmt Dual Lead System Completed 11/14/2016 58395 Icd Eval With Inerative Adjustmt Dual Lead System Completed 11/14/2016 03297 Icd Eval With Inerative Adjustmt Dual Lead System Completed 07/22/2016 39711 EKG Tracing & Interpretation Completed 06/01/2016 03570 Icd Eval With Inerative Adjustmt Dual Lead System Completed 05/16/2016 69562 Icd Check Single,Dual Or Multiple In Person W/DR Incl Completed [facility] 04/26/2016 61959 Icd Check Single,Dual Or Multiple In Person W/DR Incl Completed [facility] 03/24/2016 65627 Icd Check Single,Dual Or Multiple In Person W/DR Incl Completed [facility] 02/24/2016 15766 Icd Eval With Inerative Adjustmt Dual Lead System Completed 01/28/2016 31448 Cardioversion Completed 01/26/2016 62708 Icd Check Single,Dual Or Multiple In Person W/DR Incl Completed [facility] 01/01/2016 81086 EKG Tracing & Interpretation Completed 10/29/2015 62497 Icd Eval With Inerative Adjustmt Dual Lead System Completed 07/09/2015 69676 Icd Check Single,Dual Or Multiple In Person W/DR Incl Completed [facility] 07/02/2015 [id number] Colonoscopy Completed 03/23/2015 12017 Color Flow Doppler/Interp & Reprt Completed 03/23/2015 45275 Pulse Wave/Continuous-Interp.RPT Completed 03/23/2015 51524 Echocardiography, Transesophageal, Real Time W/Image 2D Completed W/W/O M-M 03/20/2015 44308 EKG Tracing & Interpretation Completed 03/11/2015 19336 Icd Check Single,Dual Or Multiple In Person W/DR Incl Completed [facility] Encounters Type Date Location Provider Dx Diagnosis Office Visit 12/07/2018 [facility] Kamran Johnson I42.9 Cardiomyopathy, 12:15p Of Olga Davis M.D. unspecified Z95.810 Presence of automatic (implantable) cardiac defibrillator I50.1 Left ventricular failure, unspecified Z95.2 Presence of prosthetic heart valve I47.2 Ventricular tachycardia Office Visit 11/30/2018 3:40p [facility] Internal Kvng Husain, D50.8 Other iron Medicine - ENGINEERING OFFICER deficiency anemias [place] G25.81 Restless legs syndrome Office Visit 07/11/2018 3:45p [facility] Kamran Johnson I50.1 Left ventricular Of Olga Davis M.D. failure, unspecified I47.2 Ventricular tachycardia Z95.2 Presence of prosthetic heart valve I42.9 Cardiomyopathy, unspecified Z95.810 Presence of automatic (implantable) cardiac defibrillator Office Visit 04/30/2018 2:00p [facility] Donovan Johnson D50.8 Other iron Delia Salomon M.D.,FACP deficiency [address] anemias I50.1 Left ventricular failure, unspecified G25.81 Restless legs syndrome Office Visit 12/27/2017 3:30p [facility] Ken Johnson I47.2 Ventricular Of Olga Davis M.D. tachycardia I25.5 Ischemic cardiomyopathy Z95.810 Presence of automatic (implantable) cardiac defibrillator Office Visit 10/30/2017 3:00p [facility] Donovan Johnson Z00.01 Encounter for Delia Salomon M.D.,FACP general adult [address] medical exam w abnormal findings I47.2 Ventricular tachycardia I50.1 Left ventricular failure, unspecified D50.8 Other iron deficiency anemias Z23 Encounter for immunization Office Visit 09/07/2017 [facility] Donovan Husain, B02.9 [place]oster without 8:40a Medicine - ENGINEERING OFFICER complications [place] Office Visit 07/03/2017 [facility] Donovan uHsain, S61.214D Laceration w/o fb 2:00p Medicine - ENGINEERING OFFICER of r rng fngr w/o [place] damage to nail, subs Office Visit 06/09/2017 [facility] Johnson I47.2 Ventricular 3:15p Cardiology Maria Eugenia Davis M.D. tachycardia Falafel Cart Cook I25.5 Ischemic cardiomyopathy Z95.810 Presence of automatic (implantable) cardiac defibrillator I50.1 Left ventricular failure Office Visit 03/31/2017 4:20p [facility] Donovan Johnson D50.8 Other iron Medicine Perez Gormand, M.D.,FACP deficiency [address] anemias G25.81 Restless legs syndrome R23.3 Spontaneous ecchymoses Office Visit 11/11/2016 3:15p [facility] Ken Johnson I47.2 Ventricular Of Olga Davis M.D. tachycardia I42.9 Cardiomyopathy, unspecified Z95.810 Presence of automatic (implantable) cardiac defibrillator I25.5 Ischemic cardiomyopathy Office Visit 10/28/2016 3:00p [facility] Donovan Johnson Z00.01 Encounter for Delia Salomon M.D.,FACP general adult [address] medical exam w abnormal findings I50.1 Left ventricular failure Z23 Encounter for immunization Office Visit 07/22/2016 Jesse Johnson Z95.810 Presence of 3:15p Cardiology Maria Eugenia Davis M.D. automatic [facility] (implantable) cardiac defibrillator I42.9 Cardiomyopathy, unspecified I47.2 Ventricular tachycardia I25.5 Ischemic cardiomyopathy Office Visit 07/18/2016 [facility] Donovan Johnson T81.30xD Disruption of 1:00p Delia Salomon M.D.,FACP wound, [address] unspecified, subsequent encounter Z95.810 Presence of automatic (implantable) cardiac defibrillator Office Visit 04/15/2016 [facility] Donovan Johnson T78.3xxD Angioneurotic 4:20p Delia Salomon, edema, subsequent Olman Burciaga,FACP encounter Office Visit 04/08/2016 [facility] Donovan Johnson R04.0 Epistaxis 3:40p Delia Salomon Rd M.D.,FACP Office Visit 01/28/2016 [facility] Artur Crow I42.9 Cardiomyopathy, 11:28a Cardiology Maria Eugenia Conroy M.D., unspecified [facility] FACC, FASNC I47.2 Ventricular tachycardia Z95.810 Presence of automatic (implantable) cardiac defibrillator Office Visit 01/01/2016 8:00a [facility] Ken Johnson Z95.818 Presence of Of Olga Davis M.D. other cardiac implants and grafts I25.5 Ischemic cardiomyopathy Z95.810 Presence of automatic (implantable) cardiac defibrillator Z95.2 Presence of prosthetic heart valve I44.7 Left bundle-branch block, unspecified I50.9 Heart failure, unspecified Office Visit 12/28/2015 4:00p [facility] [facility] Dusty Johnson A08.4 Viral intestinal Medicine - Patrica Salomon,FACP infection, [address] unspecified Z95.818 Presence of other cardiac implants and grafts Office Visit 07/16/2015 [place] Kamran Johnson I42.9 Cardiomyopathy, 12:15p Cardiology Maria Eugenia Davis M.D. unspecified Falafel Cart Cook I50.22 Chronic systolic (congestive) heart failure I35.0 Nonrheumatic aortic (valve) stenosis Office Visit 07/07/2015 2:00p [facility] Internal Talon Marquez, I50.22 Chronic systolic Medicine - M.DLinda (congestive) heart [address] failure Z95.810 Presence of automatic (implantable) cardiac defibrillator I42.9 Cardiomyopathy, unspecified I10 Essential (primary) hypertension I48.91 Unspecified atrial fibrillation Z79.01 intermediate manager (current) use of anticoagulants I35.9 Nonrheumatic aortic valve disorder, unspecified I34.0 Nonrheumatic mitral (valve) insufficiency Office Visit 05/22/2015 2:30p [facility] RADHIKA Stanley 424.1 Aortic Valve Of [facility] Disorder 425.4 Cardiomyopathy Other Prim 428.0 Congestive Heart Failure Unspecified 424.0 Mitral Valve Disorder V45.02 Cardiac Defibrillator Automatic Implantable Postsurgical 780.4 Dizziness & Giddiness Office Visit 04/10/2015 10:00a [facility] Kamran Johnson 428.0 Congestive Heart Of Olga Davis M.D. Failure Unspecified 425.4 Cardiomyopathy Other Prim 424.1 Aortic Valve Disorder Office Visit 04/01/2015 2:20p [facility] Internal Talon Marquez, 428.0 Congestive Heart Medicine - [place] M.D. Failure Rd Unspecified 401.9 Hypertension Unspec 425.4 Cardiomyopathy Other Prim V45.02 Cardiac Defibrillator Automatic Implantable Postsurgical 424.1 Aortic Valve Disorder V43.3 Heart Valve Replaced By Other Means 424.0 Mitral Valve Disorder Office Visit 03/30/2015 2:00p [facility] Internal Talon Marquez, 428.0 Congestive Heart Medicine - [place] M.D. Failure Rd Unspecified 401.9 Hypertension Unspec 425.4 Cardiomyopathy Other Prim 424.1 Aortic Valve Disorder V43.3 Heart Valve Replaced By Other Means 424.0 Mitral Valve Disorder 401.1 Hypertension Benign Office Visit 03/24/2015 2:30p [facility] Internal Stu Mcguire, 428.0 Congestive Heart Medicine - [place] ENGINEERING OFFICER Failure Rd Unspecified 786.05 Shortness Of Breath Office Visit 03/20/2015 2:00p [place] Kamran Johnson 425.4 Cardiomyopathy Other Cardiology Of Patrica Davis Prim [facility] V45.02 Cardiac Defibrillator Automatic Implantable Postsurgical 424.1 Aortic Valve Disorder 428.0 Congestive Heart Failure Unspecified Office Visit 02/26/2015 3:00p [facility] Internal Talon Marquez, 401.9 Hypertension Unspec Medicine - M.D. [address] 428.0 Congestive Heart Failure Unspecified 425.4 Cardiomyopathy Other Prim 424.1 Aortic Valve Disorder V43.3 Heart Valve Replaced By Other Means V45.02 Cardiac Defibrillator Automatic Implantable Postsurgical V58.61 Anticoagulants Mcfp (Current) Use Encounter 278.00 Obesity Unspec 401.1 Hypertension Benign Office 05/05/2014 [place] [place] 886.1 Amputation Finger(S) Visit 11:30a Services Of Olga Galindo M.D. Traumatic AT [place] (Complete)(Partial) Compl Office 04/14/2014 [place] [place] 886.1 Amputation Finger(S) Visit 11:00a Services Of Olga Galindo M.D. Traumatic AT [place] (Complete)(Partial) Compl Office 04/09/2014 Orthopedic Kassandra Scott, 886.0 Amputation Finger(S) Visit 1:15p Services Of Patrica Traumatic C.M.A. (Complete)(Partial) W/O Compl 886.1 Amputation Finger(S) Traumatic (Complete)(Partial) Compl Plan of Treatment Future Appointment(s):01/25/2019 11:30 am - Kamran Davis M.D. at [facility]06/03/2019 3:40 pm - Kvng Husain NP at [facility] Internal Medicine [facility]12/07/2018 - Kamran Davis M.D.I42.9 Cardiomyopathy, unspecifiedFollow up:1 monthRecommendations:Increase Metoprolol to 100mg twice a day Start home ICD [id number] Presence of automatic (implantable) cardiac iyruqwncptpcbL96.1 Left ventricular failure, uiuawqiliulE58.2 Presence of prosthetic heart hnyeaW02.2 Ventricular tachycardia
--- OUTSIDE RECORDS SUMMARY | 2018-12-24 04:41 | XMS REPORT | Continuity of Care Document ---
:1955 External Reference #:[id number] Author Name Edith Aldridge Care Team Providers Name Role Phone Ramona Flores MD Primary Care Physician Unavailable Payers Date Identification Numbers Payment Provider Subscriber Policy Number: [id number] Medicare Malgorzata Wilson PayID: [id number] [address] [place] [address] Policy Number: [id number] [facility] Malgorzata Wilson PayID: [id number] [address] [place] [address] Advance Directives Type Date Description Status Comment Other Directive 10/28/2016 Health Care Proxy Current and Verified Problems Date Description Provider Status Onset: 03/23/2015 Congestive heart failure Stu Mcguire NP Active Note: LVAD 08/2015 [place] [facility] Onset: 01/25/2016 Gastroesophageal reflux disease Dusty Salomon M.D., FACP Active Onset: 04/08/2016 Anemia Dusty Salomon M.D.,FACP Active Note: HCT 36-37 Onset: 10/28/2016 Implantation of automatic Dusty Salomon Active cardioverter/defibrillator, total MNaseem,FACP system (AICD) Onset: 03/31/2017 Secondary restless legs syndrome Lauren Barbosa M.D.FACScooter Onset: 10/30/2017 Warfarin monitoring status Lauren Barbosa M.D., FACP Note: goal 2-3, managed in [place] Onset: 04/30/2018 Restless legs Dusty Salomon M.D.,FACScooter Active Family History Date Family Member(s) Observation Comments General Heart Disease General Diabetes Father Diabetes Father due to Heart Disease () : (age 93 Years) Mother due to Old age Siblings 1 brother Social History Type Date Description Comments Sex Unknown Marital Status Single Lives With Alone Occupation 10/28/2016 Disabled Tobacco Use Start: Unknown Never Smoked Cigarettes Smoking Status Reviewed: 11/30/18 Never Smoked Cigarettes ETOH Use 04/30/2018 Occasionally consumes alcohol Tobacco Use Start: Unknown Patient has never smoked Recreational Drug Use Denies Drug Use Exercise Type/Frequency Exercises regularly walking 30mins daily goes to gym now once to three times a week Allergies, Adverse Reactions, Alerts Description No Known Drug Allergies Medications Medication Date Status Form Strength Qnty SIG Indications Ordering Provider Ferrex 150 11/27 Active Capsules 150mg 180ca 1 by mouth ps twice day HANNY Husain Pramipexole 11/23 Active Tablets 0.25mg 90tab 1 tab 2 Dusty Dihydrochloride s hours prior DLinda Salomon, to bedtime M.DLinda,FACP Epipen 2-Javed 04/18 Active Solution 0.3mg/0.3 2unit use as Auto-Inject ML s directed HANNY Husain Metoprolol 09/25 Active Tablets ER 100mg 30tab 1 by mouth Talon Succinate 24HR s every day Patrica Marquez Warfarin Sodium 06/03 Active Tablets 2mg 60tab Monday, s dayJimmy , MLindaDLinda monday, monday &monday 3mg. monday 4mg as directed Multivitamins Active Capsules 1 by mouth Unknown [...] Sodium Active Tablets 3mg 3mg daily Unknown / as directed Hydralazine HCL Active Tablets 100mg 1 tablet po Unknown / three times daily Amlodipine Active Tablets 2.5mg 3 tabs Unknown Besylate /0000 daily Shingrix 04/30 Hx Suspension 50mcg 2unit 0.5 Rec s milliliters Alex Salomon, - intramuscul Patrica,FACP 11/30 ar now and 2-3 months later repeat Pramipexole 03/31 Hx Tablets 0.125mg 180ta 2 tabs by Danika Dihydrochloride /2016 bs mouth 2 Archer, - hours prior [employer] 11/23 to bedtime Benadryl 04/15 Hx Capsules 25mg 30cap take 1-2 T78.3xxD s tablets up Alex Salomon, - to every 6 M.Alex,FACP 07/18 hours needed for ithching Famotidine 04/15 [...] Amiodarone HCL 09/25 Hx Tablets 200mg 60tab 1/2 po qam Kamran Perez Cross M.D. 07/12 Hydralazine HCL 09/25 Hx Tablets 50mg 90tab take 2 s tablet by Jimmy - mouth 3 M.D. 11/11 times a day /2016 ( Med Change- not taking this dose) Magnesium Oxide 09/25 Hx Capsules 400mg 30cap 2 tabs by s mouth bid Perez Marquez M.D. 10/02 Warfarin Sodium 05/05 Hx Tablets 3mg 60tab once daily Perez Burk M.D. 10/07 Warfarin Sodium 08/11 Hx Tablets 2.5mg 60tab 1 tab daily s Marquez, - M.D. 10/07 Lasix 03/30 Hx Tablets 20mg 30tab 1 tab qAM. I50.22 s (another 1 D. Brand, - tab PM as M.D. 10/07 needed BP reading). Augmentin 04/09 Hx Tablets 875-125mg 14tab take one s tab every Tyler, - 12 hours x M.D. 04/14 [place] 04/09 Hx Tablets 5-325mg 40tab 1-2 tabs by s mouth q4-6 Tyler, - h as needed M.D. 04/14 pain Percocet 04/09 Hx Tablets 5-325mg 64tab 1-2 tabs by s mouth q6h Tyler, - as needed M.D. 04/09 pain Coreg Hx Tablets 25mg 180ta 1 by mouth [...] /0000 twice a day - 10/07 Augmentin 00 Hx Tablets 875-125mg 20tab one by Unknown /0000 s mouth every - 12 hours 02/26 for days Enoxaparin 00/00 Hx Solution 80mg/0.8M 10syr inject Talon Sodium / L inges subcutaneou Marquez, - sly into M.D. 10/07 every 12 hours. (patient states today is the last day, will go back to coumadin tomncrow) Imodium A-D 00 Hx Tablets 2mg one by Unknown /0000 mouth three - times a day 07/18 as needed for diarrhea Amlodipine Hx Tablets 2.5mg 1 by mouth Unknown /0000 every day - (pt states 04/30 he takes tabs daily) Ferrous Sulfate Hx Tablets 325mg 2 by mouth Unknown /0000 every day - 11/27 Valacyclovir HCL Hx Tablets 1gm Rhodes, /0000 Peerz Worley MD 10/30 Prednisone Hx Tablets 20mg Carmelo, /0000 Perez Worley MD 10/30 Medications Administered in Office Medication Date Status Form Strength Qnty SIG Indications Ordering Provider Shingrix no Administered Injection Unknown bill inj-pt 019 brought in PPD Administered Injection Nurse Visit 015 [place] Immunizations CPT Code Status Date Vaccine Reaction Lot # [id number] Given 07/06/2018 Influenza Virus Vaccine, Quadrivalent, Split, Preservative Free 35017 Given 10/30/2017 Hepatitis B Vaccine Adult [id number] Dosage 53921 Given 10/30/2017 Influenza Virus Vaccine, [id number] Quadrivalent, Split, Preservative Free 30642 Given 10/28/2016 Pneumonia Vaccine [id number] 84598 Given 07/01/2016 Influ Virus Vaccine, pt had done in [facility] at Quadrivalent, Split Virus, [place] [address] Given 07/27/2015 Hepatitis B Vaccine Adult [id number] Dosage 04365 Given 07/27/2015 Zoster (Zostavax) [id number] 82246 Given 07/13/2015 Influenza Virus Vaccine, [id number] Quadrivalent, Split, Preservative Free 24487 Given 06/29/2015 Hepatitis B Vaccine Adult [id number] Dosage 41015 Given 06/29/2015 Hepatitis A Vaccine Adult [id number] Dosage 13204 Given 06/15/2015 Tdap - [id number] Tetanus/Diptheria/Acellular Pertussis 62976 Given 06/15/2015 Pneumococcal Conjugate [id number] Vaccine 13 Valent For Intramuscular Use Vital Signs Date Vital Result Comment 11/30/2018 4:01pm Height 64 inches 5'4" Weight [...] Date Facility Test Result H/L Range Note Comp Metabolic Panel 10/05/2018 [facility] Sodium 137 mmol/L N 135-145 [address] [place] [address] [phone] Potassium 4.3 mmol/L N 3.5-5.0 Chloride 103 [...] Egfr Non- 65.8 >60 Egfr 79.6 >60 1 Laboratory test 10/05/2018 [facility] Magnesium 2.1 mg/dL N 1.9-2.7 2 finding [address] [place] [address] [phone] C Reactive Protein 3.58 mg/L N <8.01 3 CBC No Diff 10/05/2018 [facility] White Blood 6.7 10^3/uL N 3.5-10.8 [place] [address] [phone] Red Blood Count 4.77 10^6/uL N 4.00-5.40 Hemoglobin 12.2 g/dL Low 14.0-18.0 Hematocrit 38 % Low 42-52 Mean Corpuscular Volume 79 fL Low 80-94 Mean Corpuscular Hemoglobin 26 pg Low 27-31 Mean Corpuscular HGB Conc 32 g/dL N 31-36 Red Cell Distribution Width 25 % High 10.5-15 Platelet Count 183 10^3/uL N 150-450 Mean Platelet Volume 8.7 fL N 7.4-10.4 Inr/Protime 10/05/2018 [facility] Inr 1.96 High 0.77-1.02 [address] [place] [address] [phone] LD Isoenzymes 10/05/2018 [facility] LDH 496 U/L Abnormal 122 - 222 [place] [address] [phone] LD 1 39.2 % Abnormal 17.5-28.3 LD 2 38.2 % Abnormal 30.4-36.4 LD 3 14.0 % Abnormal 19.2-24.8 LD 4 4.5 % Abnormal 9.6-15.6 LD 5 4.1 % Abnormal 5.5-12.7 4 LD Isoenzymes 08/14/2018 [facility] LDH 350 U/L Abnormal 122 - 222 [place] [address] [phone] LD 1 37.0 % Abnormal 17.5-28.3 LD 2 37.0 % Abnormal 30.4-36.4 LD 3 14.9 % Abnormal 19.2-24.8 LD 4 5.6 % Abnormal 9.6-15.6 LD 5 5.5 % 5.5-12.7 5 Laboratory test 08/14/2018 [facility] Magnesium 2.2 mg/dL N 1.9-2.7 6 finding [address] [place] [address] [phone] C Reactive Protein 2.42 mg/L N <8.01 7 Comp Metabolic Panel 08/14/2018 [facility] Sodium 137 mmol/L N 135-145 [address] [place] [address] [phone] Potassium 4.7 mmol/L N 3.5-5.0 Chloride 104 [...] Egfr Non- 64.4 >60 Egfr 78.0 >60 8 Inr/Protime 08/14/2018 [facility] Inr 1.95 High 0.77-1.02 [address] [place] [address] [phone] CBC No Diff 08/14/2018 [facility] White Blood 7.5 10^3/uL N 3.5-10.8 101 [place] [address] [phone] Red Blood Count 4.26 10^6/uL N 4.00-5.40 Hemoglobin 9.1 g/dL Low 14.0-18.0 Hematocrit 29 % Low 42-52 Mean Corpuscular Volume 68 fL Low 80-94 Mean Corpuscular Hemoglobin 21 pg Low 27-31 Mean Corpuscular HGB Conc 31 g/dL N 31-36 Red Cell Distribution Width 19 % High 10.5-15 Platelet Count 230 10^3/uL N 150-450 Mean Platelet Volume 8.7 fL N 7.4-10.4 Comp Metabolic Panel 07/13/2018 [facility] Sodium 136 mmol/L N 135-[address] [place] [address] [phone] Potassium 4.4 mmol/L N 3.5-5.0 Chloride 105 [...] Egfr Non- 54.5 >60 Egfr 65.9 >60 9 Laboratory test 07/13/2018 [facility] Magnesium 2.0 mg/dL N 1.9-2.[address] [place] [address] [phone] C Reactive Protein 2.64 mg/L N <8.01 11 Inr/Protime 07/13/2018 [facility] Inr 2.07 High 0.77-1.[address] [place] [address] [phone] CBC No Diff 07/13/2018 [facility] White Blood 6.7 10^3/uL N 3.5-10.[address] [place] [address] [phone] Red Blood Count 4.03 10^6/uL N 4.00-5.40 Hemoglobin 8.7 g/dL Low 14.0-18.0 Hematocrit 28 % Low 42-52 Mean Corpuscular Volume 69 fL Low 80-94 Mean Corpuscular Hemoglobin 22 pg Low 27-31 Mean Corpuscular HGB Conc 31 g/dL N 31-36 Red Cell Distribution Width 21 % High 10.5-15 Platelet Count 215 10^3/uL N 150-450 Mean Platelet Volume 8.1 um3 N 7.4-10.4 LD Isoenzymes 07/13/2018 [facility] LDH 342 U/L Abnormal 122 - 222 [address] [place] [address] [phone] LD 1 37.1 % Abnormal 17.5-28.3 LD 2 36.2 % 30.4-36.4 LD 3 14.3 % Abnormal 19.2-24.8 LD 4 5.9 % Abnormal 9.6-15.6 LD 5 6.5 % 5.5-12.7 12 LD Isoenzymes 05/14/2018 [facility] LDH 324 U/L Abnormal 122 - 222 [address] [place] [address] [phone] LD 1 37.0 % Abnormal 17.5-28.3 LD 2 36.3 % 30.4-36.4 LD 3 15.4 % Abnormal 19.2-24.8 LD 4 6.4 % Abnormal 9.6-15.6 LD 5 4.9 % Abnormal 5.5-12.7 13 Laboratory test 05/14/2018 [facility] Magnesium 2.2 mg/dL N 1.9-2.7 finding [address] [place] [address] [phone] C Reactive Protein 1.69 mg/L N <8.01 Comp Metabolic Panel 05/14/2018 [facility] Sodium 137 mmol/L N 135-145 [address] [place] [address] [phone] Potassium 4.2 mmol/L N 3.5-5.0 Chloride 105 [...] Egfr Non- 60.8 >60 Egfr 73.5 >60 14 Inr/Protime 05/14/2018 [facility] Inr 2.45 High 0.77-1.02 [address] [place] [address] [phone] CBC No Diff 05/14/2018 [facility] White Blood 4.9 10^3/uL N 3.5-10.[address] [place] [address] [phone] Red Blood Count 4.26 10^6/uL N 4.00-5.40 Hemoglobin 9.1 g/dL Low 14.0-18.0 Hematocrit 29 % Low 42-52 Mean Corpuscular Volume 68 fL Low 80-94 15 Mean Corpuscular Hemoglobin 21 pg Low 27-31 Mean Corpuscular HGB Conc 31 g/dL N 31-36 Red Cell Distribution Width 20 % High 10.5-15 Platelet Count 220 10^3/uL N 150-450 Mean Platelet Volume 8.5 um3 N 7.4-10.4 Inr/Protime 04/16/2018 [facility] Inr 2.38 High 0.77-1.[address] [place] [address] [phone] Comp Metabolic 04/16/2018 [facility] Sodium 138 mmol/L N 135- 145 Panel [address] [place] [address] [phone] Potassium 4.2 mmol/L N 3.5-5.0 Chloride 105 [...] Egfr Non- 53.1 >60 Egfr 64.2 >60 16 Laboratory test 04/16/2018 [facility] Magnesium 2.3 mg/dL N 1.9-2.7 [address] [place] [address] [phone] C Reactive Protein 1.52 mg/L N <8.01 18 CBC No Diff 04/16/2018 [facility] White Blood 6.3 10^3/uL N 3.5-10.[address] [place] [address] [phone] Red Blood Count 4.25 10^6/uL N 4.00-5.40 Hemoglobin 9.0 g/dL Low 14.0-18.0 Hematocrit 29 % Low 42-52 Mean Corpuscular Volume 68 fL Low 80-94 Mean Corpuscular Hemoglobin 21 pg Low 27-31 Mean Corpuscular HGB Conc 31 g/dL N 31-36 Red Cell Distribution Width 19 % High 10.5-15 Platelet Count 270 10^3/uL N 150-450 Mean Platelet Volume 8.4 um3 N 7.4-10.4 LD Isoenzymes 04/16/2018 [facility] LDH 336 U/L Abnormal 122 - [address] [place] [address] [phone] LD 1 37.9 % Abnormal 17.5-28.3 LD 2 36.2 % 30.4-36.4 LD 3 14.6 % Abnormal 19.2-24.8 LD 4 5.1 % Abnormal 9.6-15.6 LD 5 6.2 % 5.5-12.7 19 LD Isoenzymes 04/06/2018 [facility] LDH 374 U/L Abnormal 122 - [address] [place] [address] [phone] LD 1 34.9 % Abnormal 17.5-28.3 LD 2 35.0 % 30.4-36.4 LD 3 16.4 % Abnormal 19.2-24.8 LD 4 6.8 % Abnormal 9.6-15.6 LD 5 6.9 % 5.5-12.7 20 Stool Occult 04/06/2018 [facility] Stool Occult SEE RESULT 21 Blood Diag 101 [facility] Blood, [place] [address] [phone] Laboratory test 04/06/2018 [facility] Ferritin 9.5 ng/mL Low 24-[address] [place] [address] [phone] Iron & Iron 04/06/2018 [facility] Iron 21 g/dL Low 50-21 Binding Capacity [facility] 2 [place] [address] [phone] Unsaturated Iron Binding 381 g/dL Total Iron Binding Capacity 402 g/dL N 250-450 Transferrin 287 mg/dL N 203-362 % Iron Saturation 5 % Low 15-55 CBC No Diff 04/06/2018 [facility] White Blood 8.7 10^3/uL N 3.5-10.8 [address] [facility] [place] [address] [phone] Red Blood Count 4.03 10^6/uL N 4.00-5.40 Hemoglobin 8.8 g/dL Low 14.0-18.0 Hematocrit 27 % Low 42-52 Mean Corpuscular Volume 68 fL Low 80-94 22 Mean Corpuscular Hemoglobin 22 pg Low 27-31 Mean Corpuscular HGB Conc 32 g/dL N 31-36 Red Cell Distribution Width 19 % High 10.5-15 Platelet Count 248 10^3/uL N 150-450 Mean Platelet Volume 8.1 um3 N 7.4-10.4 Laboratory test 04/06/2018 [facility] Magnesium 2.1 mg/dL N 1.9-2.7 23 finding [address] [place] [address] [phone] C Reactive Protein 7.77 mg/L N <8.01 24 Comp Metabolic Panel 04/06/2018 [facility] Sodium 136 mmol/L N 135-145 [address] [place] [address] [phone] Potassium 4.1 mmol/L N 3.5-5.0 Chloride 103 [...] Egfr Non- 58.5 >60 Egfr 70.8 >60 25 Inr/Protime 04/06/2018 [facility] Inr 1.60 High 0.77-1.02 [address] [place] [address] [phone] LD Isoenzymes 01/03/2018 [facility] LDH 339 U/L Abnormal 122 - 222 [address] [place] [address] [phone] LD 1 34.2 % Abnormal 17.5-28.3 LD 2 34.4 % 30.4-36.4 LD 3 15.6 % Abnormal 19.2-24.8 LD 4 6.9 % Abnormal 9.6-15.6 LD 5 8.9 % 5.5-12.7 26 Laboratory test 01/03/2018 [facility] Magnesium 2.2 mg/dL N 1.9-2.7 27 finding [address] [place] [address] [phone] C Reactive Protein 3.47 mg/L N < 5.00 28 Comp Metabolic Panel 01/03/2018 [facility] Sodium 137 mmol/L Low 139-145 [address] [place] [address] [phone] Potassium 4.4 mmol/L N 3.5-5.0 Chloride 107 [...] Egfr Non- 44.7 >60 Egfr 57.4 >60 29 Inr/Protime 01/03/2018 [facility] Inr 2.57 High 0.77-1.[address] [place] [address] [phone] CBC No Diff 01/03/2018 [facility] White Blood 10.6 N 3.5-10.[address] Count 10^3/[place] [address] [phone] Red Blood Count 4.36 10^6/uL N 4.0-5.4 Hemoglobin 10.6 g/dL Low 14.0-18.0 Hematocrit 33 % Low 42-52 Mean Corpuscular Volume 76 fL Low 80-94 Mean Corpuscular Hemoglobin 24 pg Low 27-31 Mean Corpuscular HGB Conc 32 g/dL N 31-36 Red Cell Distribution Width 18 % High 10.5-15 Platelet Count 226 10^3/uL N 150-450 Mean Platelet Volume 8.4 um3 N 7.4-10.4 Laboratory test 01/03/2018 [facility] Ferritin 11.2 ng/mL Low 24-[address] [place] [address] [phone] Retic Count 01/03/2018 [facility] Retic Count 1.7 % High 0.5- 1.5 [address] [place] [address] [phone] Corrected Retic Count 1.2 % N 0.5-1.5 Maturation Factor Retic 1.5 Retic Index 0.80 Mean Retic Volume 105.2 Immature Retic Fraction 0.47 RBC Retic Count 4.37 10^6/uL Low 4.6-6.2 Hematocrit for Retic CNT 33 % Low 42-52 Laboratory 11/13/2017 [facility] Hepatitis C Nonreactive Nonreactive test finding [facility] [place] [address] [phone] Laboratory 10/30/2017 [facility] TSH (Thyroid 2.14 mcIU/mL N 0.34-5.60 30 test finding [facility] Stim Horm) [place] [address] [phone] Lipid Profile 10/30/2017 [facility] Triglycerides 78 mg/dL 31 (Trig/Chol/HD [facility] L) [place] [address] [phone] Cholesterol 162 mg/dL 32 HDL Cholesterol 49.9 mg/dL 33 LDL Cholesterol 97 mg/dL 34 Basic Metabolic Panel 10/30/2017 [facility] Sodium 136 mmol/L N 133-145 [address] [place] [address] [phone] Potassium 4.3 mmol/L N 3.5-5.0 Chloride 102 mmol/L N 101-111 Co2 Carbon Dioxide 29 mmol/L N 22-32 Anion Gap 5 mmol/L N 2-11 Glucose 88 mg/dL N 70-100 Blood Urea Nitrogen 20 mg/dL N 6-24 Creatinine 1.13 mg/dL N 0.67-1.17 BUN/Creatinine Ratio 17.7 N 8-20 Calcium 9.3 mg/dL N 8.6-10.3 Egfr Non- 65.8 >60 Egfr 84.6 >60 35 Laboratory test 10/30/2017 [facility] Ferritin 15.2 ng/mL Low 24-336 36 finding [address] [place] [address] [phone] Iron & Iron 10/30/2017 [facility] Iron 73 g/dL N 50-212 Binding Capacity [address] [place] [address] [phone] Unsaturated Iron Binding 343 g/dL Total Iron Binding Capacity 416 g/dL N 250-450 % Iron Saturation 18 % N 15-55 CBC Auto Diff 10/30/2017 [facility] White Blood 5.5 10^3/uL N 3.5-10.[address] [place] [address] [phone] Red Blood Count 4.00 10^6/uL N 4.0-5.4 [...] Blood Cells % 0.1 Laboratory test 10/21/2016 [facility] TSH (Thyroid 2.90 mcIU/mL N 0.34-5.60 [address] Stim Horm) [place] [address] [phone] CBC Auto Diff 07/15/2016 [facility] White Blood 6.6 10^3/uL N 3.5-10.[address] [place] [address] [phone] Red Blood Count 4.04 10^6/uL N 4.0-5.4 [...] Blood Cells % 0 N Inr/Protime 07/15/2016 [facility] Inr 2.66 High 0.89-1.11 [address] [place], [place] [address] [phone] Laboratory test 09/01/2015 [facility] Inr/Protim 2.56 High 0.89-1.11 38, [address] [place] [address] [phone] Laboratory test 08/25/2015 [facility] Inr/Protim 2.32 High 0.89-1.11 40 finding [address] [place], [place] [address] [phone] CBC No Diff 08/18/2015 [facility] White 5.2 N 4.8-10.8 [address] [facility] Blood 10^3/[place] [address] Count [phone] Red Blood Count 3.93 10^6/uL Low 4.0-5.4 Hemoglobin 12.0 g/dL Low 14.0-18.0 Hematocrit 37 % Low 42-52 Mean Corpuscular Volume 94 fL N 80-94 Mean Corpuscular Hemoglobin 31 pg N 27-31 Mean Corpuscular HGB Conc 32 g/dL N 31-36 Red Cell Distribution Width 20 % High 10.5-15 Platelet Count 170 10^3/uL N 150-450 Mean Platelet Volume 9 um3 N 7.4-10.4 Inr/Protime 08/18/2015 [facility] Inr 1.81 High 0.89-1.[address] [place] [address] [phone] Comp Metabolic 08/18/2015 [facility] Sodium 136 mmol/L N 133- [address] [place] [address] [phone] Potassium 4.6 mmol/L N 3.5-5.0 Chloride 102 [...] 52.3 N >60 Egfr 67.3 N >60 42 Laboratory test 08/18/2015 [facility] B-Type 1527 pg/mL High [address] [address] Peptide BNP [phone] Protime W/ Inr 08/13/2015 [facility] Inr 1.17 Laboratory test 08/06/2015 [facility] Inr/Protime 2.22 High 0.89- [address] 1[address]11 [place] [address] [phone] CBC No Diff 08/06/2015 [facility] White Blood 4.9 N 4.8-[address] Count 10^3/uL 0.8 [place], [place] [address] [phone] Red Blood Count 3.97 10^6/uL Low 4.0-5.4 [...] um3 N 7.4-10.4 Comp Metabolic Panel 08/06/2015 [facility] Sodium 137 mmol/L N 133-[address] [place] [address] [phone] Potassium 4.7 mmol/L N 3.5-5.0 Chloride 102 [...] 59.7 N >60 Egfr 76.7 N >60 45 Laboratory test 08/06/2015 [facility] B-Type 1585 pg/mL High [address] [address] Peptide BNP [phone] Laboratory test 07/30/2015 [facility] Inr/Protime 1.77 High 0.[address] -1.1 [place] [address] 5 [phone] Laboratory test 07/23/2015 [facility] Inr/Protime 1.25 High 0.[address] -1.0 [place] [address] 7 [phone] Laboratory test 07/16/2015 [facility] Partial Thrombo 49.8 seconds High 26.[address] Time PTT -36. [place] [address] 3 [phone] Inr/Protime 07/16/2015 [facility] Inr 1.12 High 0.[address] -1.0 [place] [address] 7 [phone] CBC No Diff 07/16/2015 [facility] White Blood 6.9 10^3/uL N 4.8- [address] Count 10.8 [place] [address] [phone] Red Blood Count 4.10 10^6/uL N 4.0-5.4 Hemoglobin 11.7 g/dL Low 14.0-18.0 Hematocrit 37 % Low 42-52 Mean Corpuscular Volume 89 fL N 80-94 Mean Corpuscular Hemoglobin 29 pg N 27-31 Mean Corpuscular HGB Conc 32 g/dL N 31-36 Red Cell Distribution Width 21 % High 10.5-15 Platelet Count 167 10^3/uL N 150-450 Mean Platelet Volume 9 um3 N 7.4-10.4 Laboratory test 07/10/2015 [facility] Inr/Protime 2.57 High 0.78-1.07 [address] [place] [address] [phone] Laboratory test 07/03/2015 [facility] Inr/Protime 3.72 High 0.78-1.07 [address] [place] [address] [phone] CBC No Diff 06/30/2015 [facility] White Blood 6.7 N 4.8-10.[address] Count 10^3/[place] [address] [phone] Red Blood Count 4.64 10^6/uL N 4.0-5.4 Hemoglobin 13.1 g/dL Low 14.0-18.0 Hematocrit 40 % Low 42-52 Mean Corpuscular Volume 87 fL N 80-94 Mean Corpuscular Hemoglobin 28 pg N 27-31 Mean Corpuscular HGB Conc 32 g/dL N 31-36 Red Cell Distribution Width 21 % High 10.5-15 Platelet Count 162 10^3/uL N 150-450 Mean Platelet Volume 9 um3 N 7.4-10.4 Laboratory test 06/30/2015 [facility] B-Type 2254 pg/mL High [address] [place] [address] Peptide BNP [phone] Comp Metabolic 06/30/2015 [facility] Sodium 134 mmol/L N 133- [address] [place] [address] [phone] Potassium 5.3 mmol/L High 3.5-5.0 Chloride 102 [...] 60.8 N >60 Egfr 78.2 N >60 51 Blood Urea Nitrogen 34 mg/dL High 6-24 BUN/Creatinine Ratio 27.9 High 8-20 Total Protein 6.9 g/dL N 6.4-8.9 Globulin 2.9 g/dL N 2-4 Albumin/Globulin Ratio 1.4 N 1-3 Total Bilirubin 0.90 mg/dL N 0.2-1.0 Laboratory test 06/26/2015 [facility] Inr/Protime 2.67 High 0.78-1.07 [address] [place] [address] [phone] CBC No Diff 06/19/2015 [facility] White Blood 5.4 N 4.8-10.[address] Count 10^3/[place] [address] [phone] Red Blood Count 4.94 10^6/uL N 4.0-5.4 Hemoglobin 13.7 g/dL Low 14.0-18.0 Hematocrit 43 % N 42-52 Mean Corpuscular Volume 88 fL N 80-94 Mean Corpuscular Hemoglobin 28 pg N 27-31 Mean Corpuscular HGB Conc 32 g/dL N 31-36 Red Cell Distribution Width 20 % High 10.5-15 Platelet Count 226 10^3/uL N 150-450 Mean Platelet Volume 9 um3 N 7.4-10.4 Inr/Protime 06/19/2015 [facility] Inr 1.78 High 0.78-1.[address] [place] [address] [phone] Laboratory test 06/19/2015 [facility] B-Type 2524 High [address] Natriuretic pg/[place] [address] Peptide BNP [phone] Comp Metabolic 06/19/2015 [facility] Albumin 4.2 g/dL N 3.2- 5.2 Panel [address] [place] [address] [phone] Total Bilirubin 1.00 mg/dL N 0.2-1.0 Sodium [...] 53.2 N >60 Egfr 68.4 N >60 54 Laboratory test 06/12/2015 [facility] Inr/Protime 1.48 High 0.78-1.07 finding [address] [place] [address] [phone] Laboratory test 06/08/2015 [facility] Inr/Protime 1.17 High 0.78-1.07 55 finding [address] [place] [address] [phone] Protime W/ Inr 06/02/2015 [facility] Inr 1.27 CBC No Diff 05/27/2015 [facility] White Blood 5.7 N 4.8-10.[address] Count 10^3/[place] [address] [phone] Red Blood Count 5.22 10^6/uL N 4.0-5.4 [...] um3 High 7.4-10.4 Comp Metabolic Panel 05/27/2015 [facility] Sodium 131 mmol/L Low 133-[address] [place] [address] [phone] Potassium 4.8 mmol/L N 3.5-5.0 Chloride 99 [...] 43.5 N >60 Egfr 56.0 N >60 56 Inr/Protime 05/27/2015 [facility] Inr 5.57 High 0.78-1.[address] [place] [address] [phone] Laboratory test 05/27/2015 [facility] B-Type 8081 High [address] Natriuretic pg/[place] [address] Peptide BNP [phone] Inr/Protime 05/13/2015 [facility] Inr 3.19 High 0.78-1.07 101 [place] [address] [phone] Comp Metabolic 05/13/2015 [facility] Sodium 138 N 133-[address] mmol/[place] [address] [phone] Potassium 4.6 mmol/L N 3.5-5.0 Chloride 104 [...] 51.9 N >60 Egfr 66.7 N >60 58 Lipid Profile 05/13/2015 [facility] Triglycerides 235 mg/dL N 59 (Trig/Chol/HDL) 101 [place] [address] [phone] Cholesterol 114 mg/dL N 60 HDL Cholesterol 22.4 mg/dL N 61 LDL Cholesterol 45 mg/dL N 62 Laboratory test 05/13/2015 [facility] TSH (Thyroid 2.68 ?IU/mL N 0.34-5.60 finding [address]) [place] [address] [phone] Urinalysis 05/13/2015 [facility] Urine Color Yellow N Profile [address] [place] [address] [phone] Urine Appearance Clear N Urine Specific [place] 1.017 N 1.010-1.030 Urine pH 6.0 N [...] Urine Bacteria Absent N Absent Inr/Protime 05/01/2015 [facility] Inr 5.63 High 0.78-1.[address] [place] [address] [phone] Basic Metabolic 04/10/2015 Sodium 137 mmol/L N [...] 60.2 N >60 Egfr 77.5 N >60 64 Laboratory test 03/23/2015 [facility] Potassium 4.9 mmol/L N 3.5-5.[address] [place] [address] [phone] Laboratory test 03/23/2015 [facility] Inr/Protime 4.95 High 0.78-1.07 finding [address] [place] [address] [phone] B-Type Natriuretic Peptide BNP 4154 pg/mL High 65 Digoxin 1.6 ng/ml N 0.8-2.0 Potassium Redraw TNP mmol/L N 3.5-5.0 66 CBC Auto Diff 03/23/2015 [facility] White Blood 6.5 10^3/uL N 4.8-10.[address] [place] [address] [phone] Red Blood Count 4.79 10^6/uL N 4.0-5.4 [...] Cells % 0 N Laboratory test 03/23/2015 [facility] Digoxin TNP ng/ml N 0.8- 2.0 68 finding [address] [place] [address] [phone] Basic Metabolic 03/23/2015 [facility] Sodium 134 mmol/L N 133- 145 Panel 101 [employer] [place], [place] [id number] [phone] Chloride 106 mmol/L N 101-111 Co2 Carbon Dioxide 24 mmol/L N 22-32 Glucose 87 mg/dL N 70-100 Blood Urea Nitrogen 44 mg/dL High 6-24 Creatinine 1.20 mg/dL High 0.67-1.17 BUN/Creatinine Ratio 36.7 High 8-20 Calcium 8.6 mg/dL N 8.6-10.3 Egfr Non- 62.0 N >60 Egfr 79.7 N >60 69 Potassium TNP mmol/L N 3.5-5.0 70 Anion Gap TNP mmol/L N 2-11 Laboratory test 03/23/2015 [facility] B-Type 2696 pg/mL High 71 finding [address] [facility] [place] [address] Peptide BNP [phone] 1 Because ethnic data is not always [...] Kidney failure <15 (or dialysis) 2 ORDERED 03/30/18 EXP 09/30/18 CC:JUSTINE STEWART CC:MALGORZATA SALOMON FAX RESULTS TO: [id number] 3 ORDERED 03/30/18 EXP 09/30/18 CC:JUSTINE STEWART CC:MALGORZATA SALOMON FAX RESULTS TO: [id number] 4 Test Performed by: [place] [address] 5 Test Performed by: [place] [address] 6 ORDERED 03/30/18 EXP 09/30/18 CC:JUSTINE STEWART CC:MALGORZATA SALOMON FAX RESULTS TO: [id number] 7 ORDERED 03/30/18 EXP 09/30/18 CC:JUSTINE STEWART CC:MALGORZATA SALOMON FAX RESULTS TO: [id number] 8 Because ethnic data is not always readily [...] 15-29 5 Kidney failure <15 (or dialysis) 9 Because ethnic data is not always readily [...] 15-29 5 Kidney failure <15 (or dialysis) 10 ORDERED 03/30/18 EXP 09/30/18 CC:JUSTINE STEWART CC:MALGORZATA SALOMON FAX RESULTS TO: [id number] 11 ORDERED 03/30/18 EXP 09/30/18 CC:JUSTINE STEWART CC:MALGORZATA SAOLMON FAX RESULTS TO: [id number] 12 Test Performed by: [address] [address] 13 Test Performed by: [place] [address] [place] [address] 14 Because ethnic data is not always readily [...] 15-29 5 Kidney failure <15 (or dialysis) 15 Consistent with Previous Results Reported on 04/16/18 16 Because ethnic data is not always readily [...] 15-29 5 Kidney failure <15 (or dialysis) 17 ORDERED 03/30/18 EXP 09/30/18 CC:JUSTINE STEWART CC:MALGORZATA SALOMON FAX RESULTS TO: [id number] 18 ORDERED 03/30/18 EXP 09/30/18 CC:JUSTINE STEWART CC:MALGORZATA SALOMON FAX RESULTS TO: [id number] 19 Test Performed by: [place] [address] 20 Test Performed by: [place] [address] 21 SEE RESULT BELOW Name: MALGORZATA WILSON : [address]: April Connolly RPA C Acct: [id number] Unit: [id number] AGE: 62 [facility] SEX: M Status: REG REF SPEC: [id number] JOHN: 04/06/[address]: April Elmore REQ: [id number] RECD: 04/06/18 STATUS: COMP _ SOURCE: STOOL SPDESC: ORDERED: Occult Bl, Diag Procedure Result Reported Site Stool Occult Blood (1) Final 04/06/18- 1301 ML Stool Occult Blood Negative * ML - Main Lab . END OF REPORT DEPARTMENT OF PATHOLOGY, [address] [place] [id number] Doug Marquez M.D. Director [facility] # [id number] 22 Consistent with Previous Results Reported on03/30/18 23 ORDERED 03/30/18 EXP 09/30/18 CC:JUSTINE STEWART CC:MALGORZATA SALOMON FAX RESULTS TO: [id number] 24 ORDERED 03/30/18 EXP 09/30/18 CC:JUSTINE STEWART CC:MALGORZATA SALOMON FAX RESULTS TO: [id number] 25 Because ethnic data is not always readily [...] 15-29 5 Kidney failure <15 (or dialysis) 26 Test Performed by: [place] [id number] STANDING ORDER ENTERED 09/27/2017 EXPIRES 02/28/2018 CC: JUSTINE STEWART FAX RESULTS TO: [id number] 28 Acute inflammation: >10.00 29 Because ethnic data is not always readily [...] 15-29 5 Kidney failure <15 (or dialysis) 30 FASTING 10 HOUR 31 Desirable: <150 Borderline High: 150-199 High: 200-499 Very High: >500 32 Desirable: <200 Borderline High: 200-239 High: >239 33 Low: <40 Desirable: 40-60 High: >60 34 Desirable: <100 Near Optimal: 100-129 Borderline High: 130-159 High: 160-189 Very High: >189 35 Because ethnic data is not always readily [...] 15-29 5 Kidney failure <15 (or dialysis) 36 FASTING 10 HOUR 37 FASTING 10 HOUR Standing order 38 ENTERED: 07/23/15 EXP: 11/01/15 39 ENTERED: 07/23/15 EXP: 11/01/15 40 ENTERED: 07/23/15 EXP: 11/01/15 41 Effective immediately, due to a laboratory mean normal Protime change, the reference range for the INR has changed. 42 Because ethnic data is not always readily [...] 15-29 5 Kidney failure <15 (or dialysis) 43 >100 to <200 pg/mL: likely compensated congestive heart failure (CHF) 200 to 400 pg/mL: likely moderate CHF >400 pg/mL: likely moderate to severe CHF 44 Effective immediately, due to a laboratory mean normal Protime change, the reference range for the INR has changed. 45 Because ethnic data is not always readily [...] 15-29 5 Kidney failure <15 (or dialysis) 46 >100 to <200 pg/mL: likely compensated congestive heart failure (CHF) 200 to 400 pg/mL: likely moderate CHF >400 pg/mL: likely moderate to severe CHF 47 Effective immediately, due to a laboratory mean normal Protime change, the reference range for the INR has changed. 48 PRN ORDERED: 05/01/15 PRN EXP: 11/01/15 49 PRN ORDERED: 05/01/15 PRN EXP: 11/01/15 50 >100 to <200 pg/mL: likely compensated congestive heart failure (CHF) 200 to 400 pg/mL: likely moderate CHF >400 pg/mL: likely moderate to severe CHF 51 Because ethnic data is not always readily [...] 15-29 5 Kidney failure <15 (or dialysis) 52 PRN ORDERED: 05/01/15 PRN EXP: 11/01/15 53 >100 to <200 pg/mL: likely compensated congestive heart failure (CHF) 200 to 400 pg/mL: likely moderate CHF >400 pg/mL: likely moderate to severe CHF 54 Because ethnic data is not always readily [...] 15-29 5 Kidney failure <15 (or dialysis) 55 PRN ORDERED: 05/01/15 PRN EXP: 11/01/15 56 Because ethnic data is not always readily [...] 15-29 5 Kidney failure <15 (or dialysis) 57 >100 to <200 pg/mL: likely compensated congestive heart failure (CHF) 200 to 400 pg/mL: likely moderate CHF >400 pg/mL: likely moderate to severe CHF 58 Because ethnic data is not always readily [...] 15-29 5 Kidney failure <15 (or dialysis) 59 Desirable <150 Borderline high 150-199 High 200-499 Very High >500 60 Desirable <200 Borderline high 200-239 High >239 61 Low <40 Desirable: 40-60 High: >60 62 Desirable: <100 mg/dL Near Optimal: 100-129 mg/dL Borderline High: 130-159 mg/dL High: 160-189 mg/dL Very High: >189 mg/dL 63 STANDING ORDER 64 Because ethnic data is not always [...] pg/mL: likely moderate to severe CHF 66 Unable to report test result due to hemolysis. 67 CALL RESULTS TO 4591 68 CALL RESULTS TO 4591 69 Because ethnic data is not always readily [...] 15-29 5 Kidney failure <15 (or dialysis) 70 HEMOLIZED SPECIMEN, floor called 71 >100 to <200 pg/mL: likely compensated congestive heart failure (CHF) 200 to 400 pg/mL: likely moderate CHF >400 pg/mL: likely moderate to severe CHF Procedures Date Code Description Status 11/27/2018 58373 Icd Eval With Inerative Adjustmt Dual Lead System Completed 09/03/2018 02475 Icd Eval With Inerative Adjustmt Dual Lead System Completed 09/03/2018 94053 Icd Eval With Inerative Adjustmt Dual Lead System Completed 03/07/2018 12960 Icd Eval With Inerative Adjustmt Dual Lead System Completed 03/07/2018 68777 Icd Eval With Inerative Adjustmt Dual Lead System Completed 12/27/2017 50297 EKG Tracing & Interpretation Completed 11/07/2017 56822 Icd Eval With Inerative Adjustmt Dual Lead System Completed 11/07/2017 35454 Icd Eval With Inerative Adjustmt Dual Lead System Completed 06/27/2017 76555 Icd Eval With Inerative Adjustmt Dual Lead System Completed 06/09/2017 18233 EKG Tracing & Interpretation Completed 03/08/2017 96594 Icd Eval With Inerative Adjustmt Dual Lead System Completed 11/14/2016 18149 Icd Eval With Inerative Adjustmt Dual Lead System Completed 11/14/2016 55460 Icd Eval With Inerative Adjustmt Dual Lead System Completed 07/22/2016 97411 EKG Tracing & Interpretation Completed 06/01/2016 89709 Icd Eval With Inerative Adjustmt Dual Lead System Completed 05/16/2016 70047 Icd Check Single,Dual Or Multiple In Person W/DR Incl Completed Heart Rhyth 04/26/2016 31595 Icd Check Single,Dual Or Multiple In Person W/DR Incl Completed Heart Rhyth 03/24/2016 03036 Icd Check Single,Dual Or Multiple In Person W/DR Incl Completed Heart Rhyth 02/24/2016 21967 Icd Eval With Inerative Adjustmt Dual Lead System Completed 01/28/2016 10661 Cardioversion Completed 01/26/2016 68151 Icd Check Single,Dual Or Multiple In Person W/DR Incl Completed Heart Rhyth 01/01/2016 63359 EKG Tracing & Interpretation Completed 10/29/2015 52866 Icd Eval With Inerative Adjustmt Dual Lead System Completed 07/09/2015 81094 Icd Check Single,Dual Or Multiple In Person W/DR Incl Completed Heart Rhyth 07/02/2015 [id number] Colonoscopy Completed 03/23/2015 75981 Color Flow Doppler/Interp & Reprt Completed 03/23/2015 49688 Pulse Wave/Continuous-Interp.RPT Completed 03/23/2015 84425 Echocardiography, Transesophageal, Real Time W/Image 2D Completed W/W/O M-M 03/20/2015 21506 EKG Tracing & Interpretation Completed 03/11/2015 28937 Icd Check Single,Dual Or Multiple In Person W/ Incl Completed Heart Rhyth Encounters Type Date Location Provider Dx Diagnosis Office Visit 07/11/2018 [facility] Kamran Johnson I50.1 Left ventricular 3:45p Of Olga Davis M.D. failure, unspecified I47.2 Ventricular tachycardia Z95.2 Presence of prosthetic heart valve I42.9 Cardiomyopathy, unspecified Z95.810 Presence of automatic (implantable) cardiac defibrillator Office Visit 04/30/2018 2:00p [facility] Internal Dusty Johnson D50.8 Other iron Delia Salomon M.D.,FACP deficiency [address] anemias I50.1 Left ventricular failure, unspecified G25.81 Restless legs syndrome Office Visit 12/27/2017 3:30p [facility] Kamran Johnson I47.2 Ventricular Of Olga Davis M.D. 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 Z23 Encounter for immunization Office Visit 09/07/2017 [facility] Internal Kvng Husain, B02.9 Zoster without 8:40a Medicine - COLLEGE SCOUTING COORDINATOR complications [place] Office Visit 07/03/2017 [facility] Internal Kvng Husain, S61.214D Laceration w/o fb 2:00p Medicine - COLLEGE SCOUTING COORDINATOR of r rng fngr w/o [place] damage to nail, subs Office Visit 06/09/2017 [facility] I47.2 Ventricular 3:15p Cardiology Of Patrica Davis tachycardia [facility] I25.5 Ischemic cardiomyopathy Z95.810 Presence of automatic (implantable) cardiac defibrillator I50.1 Left ventricular failure Office Visit 03/31/2017 4:20p [facility] Internal Dusty Johnson 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 tachycardia I42.9 Cardiomyopathy, unspecified Z95.810 Presence of automatic (implantable) cardiac defibrillator I25.5 Ischemic cardiomyopathy Office Visit 10/28/2016 3:00p [facility] Donovan Johnson Z00.01 Encounter for Delia Salomon M.D.,FAC general adult [address] medical exam w abnormal findings I50.1 Left ventricular failure Z23 Encounter for immunization Office Visit 07/22/2016 Jesse Johnson Z95.810 Presence of 3:15p Cardiology Maria Eugenia Davis M.D. automatic [facility] (implantable) cardiac defibrillator I42.9 Cardiomyopathy, unspecified I47.2 Ventricular tachycardia I25.5 Ischemic cardiomyopathy Office Visit 07/18/2016 [facility] Internal Dusty Johnson T81.30xD Disruption of 1:00p Delia Salomon M.D.,FACP wound, [address] unspecified, subsequent encounter Z95.810 Presence of automatic (implantable) cardiac defibrillator Office Visit 04/15/2016 [facility] Donovan Johnson T78.3xxD Angioneurotic 4:20p Delia Salomon, edema, subsequent Rd Patrica,FACP encounter Office Visit 04/08/2016 [facility] Donovan Johnson R04.0 Epistaxis 3:40p Delia Salomon, Olman Burciaga,FACP Office Visit 01/28/2016 [facility] Artur Crow I42.9 Cardiomyopathy, 11:28a Cardiology Maria Eugenia Conroy M.D., unspecified [facility] FACC, FASNC I47.2 Ventricular tachycardia Z95.810 Presence of automatic (implantable) cardiac defibrillator Office Visit 01/01/2016 8:00a [facility] Ken Johnson Z95.818 Presence of Of Olga Davis M.D. other cardiac implants and grafts I25.5 Ischemic cardiomyopathy Z95.810 Presence of automatic (implantable) cardiac defibrillator Z95.2 Presence of prosthetic heart valve I44.7 Left bundle-branch block, unspecified I50.9 Heart failure, unspecified Office Visit 12/28/2015 4:00p [facility] Donovan Johnson A08.4 Viral intestinal Delia Salomon M.D.,FACP infection, [address] unspecified Z95.818 Presence of other cardiac implants and grafts Office Visit 07/16/2015 Jesse Johnson I42.9 Cardiomyopathy, 12:15p Cardiology Maria Eugenia Davis M.D. unspecified Olga I50.22 Chronic systolic (congestive) heart failure I35.0 Nonrheumatic aortic (valve) stenosis Office Visit 07/07/2015 2:00p [facility] Internal Talon Marquez, I50.22 Chronic systolic Medicine - M.D. 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 Failure Unspecified 425.4 Cardiomyopathy Other Prim 424.1 Aortic Valve Disorder Office Visit 04/01/2015 2:20p [facility] Internal Talon Marquez, 428.0 Congestive Heart Medicine - [place] M.D. Failure Rd Unspecified 401.9 Hypertension Unspec 425.4 Cardiomyopathy Other Prim V45.02 Cardiac Defibrillator Automatic Implantable Postsurgical 424.1 Aortic Valve Disorder V43.3 Heart Valve Replaced By Other Means 424.0 Mitral Valve Disorder Office Visit 03/30/2015 2:00p [facility] Internal Talon Marquez, 428.0 Congestive Heart Medicine - [place] M.D. Failure Rd Unspecified 401.9 Hypertension Unspec 425.4 Cardiomyopathy Other Prim 424.1 Aortic Valve Disorder V43.3 Heart Valve Replaced By Other Means 424.0 Mitral Valve Disorder 401.1 Hypertension Benign Office Visit 03/24/2015 2:30p [facility] Internal Stu Mcguire, 428.0 Congestive Heart Medicine - [place] COLLEGE SCOUTING COORDINATOR Failure Rd Unspecified 786.05 Shortness Of Breath Office Visit 03/20/2015 2:00p [facility] Kamran Johnson 425.4 Cardiomyopathy Other Cardiology Of Patrica Davis Prim Olga V45.02 Cardiac Defibrillator Automatic Implantable Postsurgical 424.1 Aortic Valve Disorder 428.0 Congestive Heart Failure Unspecified Office Visit 02/26/2015 3:00p [facility] Internal Talon Marquez, 401.9 Hypertension Unspec Medicine - M.Alex [address] 428.0 Congestive Heart Failure Unspecified 425.4 Cardiomyopathy Other Prim 424.1 Aortic Valve Disorder V43.3 Heart Valve Replaced By Other Means V45.02 Cardiac Defibrillator Automatic Implantable Postsurgical 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 Traumatic AT [place] (Complete)(Partial) Compl Office 04/14/2014 [place] [place] 886.1 Amputation Finger(S) Visit 11:00a Services Of Olga Galindo M.D. Traumatic AT [place] (Complete)(Partial) Compl Office 04/09/2014 Orthopedic Kassandra Scott, 886.0 Amputation Finger(S) Visit 1:15p Services Of Patrica Traumatic [facility] (Complete)(Partial) W/O Compl 886.1 Amputation Finger(S) Traumatic (Complete)(Partial) Compl Plan of Treatment Future Appointment(s):06/03/2019 3:40 pm - Kvng Husain NP at [facility] Internal Medicine - Vccursimy28/15/2019 12:15 pm - Kamran Davis M.D. at [facility]11/30/2018 - Kvng Husain NPD50.8 Other iron deficiency pikbchzJ42.81 Restless legs syndromeFollow up:6 months
[2018-12-24] MEDS ORDERED: NS 0.9% 500 ML* 500 ML IV ONE (04:59)
[2018-12-24] MEDS ORDERED: Ondansetron INJ* 2 MG/ML VIAL IV ONE (04:59)
[2018-12-24] MEDS ORDERED: Diphenoxylat/Atrop 2.5-0.025M* 1 TAB PO ONE (05:00)
--- NOTE | 2018-12-24 05:01 | ED ---
GI/ HPI - HPI Summary HPI Summary: Pt is a 63 y/o M presenting to the ED brought in by EMS for GI symptoms. He reports he woke up this morning with nausea, vomiting, diarrhea, chills, and diaphoresis. He has LVAD which he goes to [place] for, and he sees Dr. Davis here. He denies cp and sob. He states he experienced dizziness earlier today but it has since resolved. - History of Current Complaint Chief Complaint: EDNauseaVomitDiarrh Time Seen by Provider: 12/24/18 04:30 Stated Complaint: DIZZINESS PER EMS Hx Obtained From: Patient Onset/Duration: Started Hours Ago, Resolved Timing: Intermittent, Lasting Hours Severity: Mild Current Severity: None Pain Intensity: 0 Associated Signs and Symptoms: Positive: Dizziness, Nausea, Vomiting, Diarrhea, Diaphoresis, Chills - Allergy/Home Medications Allergies/Adverse Reactions: Allergies Allergy/AdvReac Type Severity Reaction Status Date / Time No Known Allergies Allergy Verified 12/24/18 04:21 Home Medications: Home Medications Amlodipine Besylate [Amlodipine 2.5 mg tab] 7.5 mg PO QAM 12/24/18 [History Confirmed 12/24/18] Ascorbic Acid TAB* [Vitamin C TAB*] 1,000 mg PO DAILY 12/24/18 [History Confirmed 12/24/18] Metoprolol Tartrate TAB* [Lopressor TAB*] 100 mg PO BID 12/24/18 [History Confirmed 12/24/18] Pantoprazole TAB * [Protonix TAB*] 40 mg PO DAILY 12/24/18 [History Confirmed ] hydrALAZINE TAB* [Apresoline TAB*] 100 mg PO TID 12/24/18 [History Confirmed 10/13] PMH/Surg Hx/FS Hx/Imm Hx Previously Healthy: Yes Endocrine/Hematology History: Denies: Hx Diabetes, Hx Thyroid Disease Cardiovascular History: Reports: Hx Hypertension, Hx Pacemaker/ICD, Other Cardiovascular Problems/Disorders - VTACH Respiratory History: Denies: Hx Asthma GI History: Denies: Hx Ulcer - Surgical History Surgery Procedure, Year, and Place: AORTIC VALVE SURGERY Infectious Disease History: No Infectious Disease History: Denies: Hx Clostridium Difficile, Hx Hepatitis, Hx Human Immunodeficiency Virus (HIV), Hx of Known/Suspected MRSA, Hx Shingles, Hx Tuberculosis, Hx Known/ Suspected VRE, Traveled Outside the [place] in Last 30 Days - Family History Known Family History: Positive: Cardiac Disease - Social History Alcohol Use: Occasionally Hx Substance Use: No Substance Use Type: Reports: None Hx Tobacco Use: No Smoking Status (MU): Never Smoked Tobacco Review of Systems Positive: Chills, Skin Diaphoresis Positive: Vomiting, Diarrhea, Nausea Neurological: Other - dizziness All Other Systems Reviewed And Are Negative: Yes Physical Exam - Summary Physical Exam Summary: VITAL SIGNS: Reviewed. GENERAL: Patient is a well-developed and nourished male who is lying comfortable in the stretcher. Patient is not in any acute respiratory distress. HEAD AND FACE: No signs of trauma. No ecchymosis, hematomas or skull depressions. No sinus tenderness. EYES: PERRLA, EOMI x 2, No injected conjunctiva, no nystagmus. EARS: Hearing grossly intact. Ear canals and tympanic membranes are within normal limits. MOUTH: Oropharynx within normal limits. NECK: Supple, trachea is midline, no adenopathy, no JVD, no carotid bruit, no c- spine tenderness, neck with full ROM. CHEST: Symmetric, no tenderness at palpation LUNGS: Clear to auscultation bilaterally. No wheezing or crackles. CVS: Due to LVAD, no audible heart sounds. ABDOMEN: Soft, non-tender. No signs of distention. No rebound no guarding, and no masses palpated. Bowel sounds are normal. EXTREMITIES: FROM in all major joints, no edema, no cyanosis or clubbing. NEURO: Alert and oriented x 3. No acute neurological deficits. Speech is normal and follows commands. SKIN: Dry and warm Triage Information Reviewed: Yes Vital Signs On Initial Exam: Initial Vitals Temp Pulse Resp BP Pulse Ox 97.0 F 60 16 110/89 96 12/24/18 04:12 12/24/18 04:12 12/24/18 04:12 12/24/18 04:12 12/24/18 04:12 Vital Signs Reviewed: Yes Diagnostics - Vital Signs Vital Signs Temp Pulse Resp BP Pulse Ox 12/24/18 04:23 61 95 12/24/18 04:12 97.0 F 60 16 110/89 96 - Laboratory Result Diagrams: 12/24/18 05:17 12/24/18 05:17 Lab Statement: Any lab studies that have been ordered have been reviewed, and results considered in the medical decision making process. - Radiology CXR Radiology Interpretation Completed By: ED Physician Summary of Radiographic Findings: Cardiomegaly. No acute process. Pending official radiology report. GIGU Course/Dx - Course Course Of Treatment: Pt is a 63 y/o M presenting to the ED brought in by EMS for GI symptoms. He reports he woke up this morning with nausea, vomiting, diarrhea, chills, and diaphoresis. He denies cp and sob. He states he experienced dizziness earlier today but it has since resolved. CXR shows cardiomegaly, no acute process, pending official radiology report. The pt will be sent home with a dx of acute gastroenteritis. The pt is agreeable with this plan. - Diagnoses Provider Diagnoses: Acute gastroenteritis Discharge - Sign-Out/Discharge Documenting (check all that apply): Patient Departure Patient Received Moderate/Deep Sedation with Procedure: No - Discharge Plan Condition: Stable Disposition: HOME Prescriptions: Diphenoxylat/Atrop 2.5-0.025M* [Lomotil TAB*] 1 tab PO QID PRN #14 tab MDD 4 PRN Reason: Diarrhea Ondansetron HCl [Zofran] 8 mg PO Q6H PRN #20 tablet PRN Reason: Nausea/Vomiting Referrals: Kvng Husain NP [Primary Care Provider] - Additional Instructions: Please take your prescribed medications as instructed. Follow up with your primary care provider in the next 2-3 days. Return to the emergency department with any new or worsening symptoms. - Attestation Statements Document Initiated by Scribe: Yes Documenting Scribe: Mira Medrano Provider For Whom [place] is Documenting (Include Credential): Kecia Sousa MD. Scribe Attestation: Mira Alas, joeled for Kecia Sousa MD. on 12/24/18 at 0627. Status of Scribe Document: Ready
[2018-12-24 05:24] LABS: ABS Basophils 0.1 10^3/ul (0-0.2); ABS Eosinophils 0 10^3/ul (0-0.6); ABS Lymphocytes 0.6 10^3/ul (1.0-4.8); ABS Monocytes 0.7 10^3/ul (0-0.8); ABS Neutrophils 8.9 10^3/ul (1.5-7.7); ABS Nucleated RBC 0 10^3/ul; Eosinophil % 0.3 %; Hematocrit 42 % (36-46); Lymphocyte % 5.6 %; Mean Corpuscular HGB Conc 33 g/dL (31-36); Mean Corpuscular Hemoglobin 28 pg (27-31); Mean Corpuscular Volume 84 fL (80-94); Nucleated Red Blood Cells % 0; Platelet Count 168 10^3/uL (150-450); Red Blood Count 5.03 10^6 /uL (4.18-5.48); Red Cell Distribution Width 16 % (10.5-15); White Blood Count 10.3 10^3/uL (3.5-10.8)
[2018-12-24 05:36] LABS: Activated Partial Thrombo Time 39.7 seconds (26.0-36.3); INR 2.02 (0.77-1.02)
[2018-12-24 05:43] LABS: Albumin 4.2 g/dL (3.2-5.2); Albumin/Globulin Ratio 1.7 (1-3); BUN/Creatinine Ratio 18.2 (8-20); C Reactive Protein 4.78 mg/L (<8.01); Calcium 9.3 mg/dL (8.6-10.3); EGFR African American 81.8 (>60); EGFR Non-African American 67.6 (>60); Globulin 2.5 g/dL (2-4); Potassium 3.9 mmol/L (3.5-5.0); Total Bilirubin 0.9 mg/dL (0.2-1.0); Total Protein 6.7 g/dL (6.4-8.9)
[2018-12-24 07:05] VITALS: BP 100/00
== END 2018-12-24 07:03 | disposition home or self-care (01) ==
LOC: ED 04:07
DX: K52.9 Noninfective gastroenteritis and colitis, unspecified (principal); I11.9 Hypertensive heart disease without heart failure; R42 Dizziness and giddiness; Z95.810 Presence of automatic (implantable) cardiac defibrillator
CPT/HCPCS: 36415; 71045; 80053; 83605; 83690; 83735; 83880; 85025; 85610; 85730; 86140; 96361; 96374; 99283; A9270-GY; J2405

== ENCOUNTER 2019-04-29 09:56 | Emergency (ER) | payer MEDICARE ==
[2019-04-29 10:08] VITALS: BP 0/0
--- NOTE | 2019-04-29 10:39 | ED ---
HPI Cardiac - HPI Summary HPI Summary: This patient is a 63 year old M w hx of LVAD 2/2 HF from mitral valve disorder who is presenting to [facility] with a chief complaint of defibrillator went off at 1700 yesterday while sitting watching TV. Pt denies CP before and after the defibrillator went off. Pt has a LVAD ([facility] and AICD. January 27, 2015 was the last time his defibrillator went off. He think it may be 2/2 to his electrolytes as he was originally taking magnesium oxide which gave him diarrhea and now takes magnesium gluconate but has not been taking it regularly. Pt takes Coumadin for his LVAD. Patients office agent is Dr. Pat. He has an appointment at [facility] tomorrow w the LVAD team but was told to come to ED from the [facility]. - History of Current Complaint Chief Complaint: EDDysrhythmPalp Stated Complaint: DEFIBRILLATOR WENT OFF LAST NIGHT PER PT Time Seen by Provider: 04/29/19 10:10 Hx Obtained From: Patient Onset/Duration: Started Hours Ago, Resolved Time of Onset: 17:00 Timing: Lasting Seconds Current Severity: None Pain Intensity: 0 Pain Scale Used: 0-10 Numeric Aggravating Factor(s): Nothing Alleviating Factor(s): Nothing Associated Signs and Symptoms: Negative: Chest Pain - Allergy/Home Medications Allergies/Adverse Reactions: Allergies Allergy/AdvReac Type Severity Reaction Status Date / Time No Known Allergies Allergy Verified 04/29/19 11:37 Home Medications: Home Medications Pramipexole TAB* [Mirapex TAB*] 0.25 mg PO BEDTIME 04/29/19 [History Confirmed 04/29/19] Ticagrelor* [Brilinta*] 90 mg PO BID 04/29/19 [History Confirmed 04/29/19] PMH/Surg Hx/FS Hx/Imm Hx Endocrine/Hematology History: Denies: Hx Diabetes, Hx Thyroid Disease Cardiovascular History: Reports: Hx Hypertension, Hx Pacemaker/ICD, Other Cardiovascular Problems/Disorders - VTACH Respiratory History: Denies: Hx Asthma GI History: Denies: Hx Ulcer EENT History: Denies: Hx Deafness - Surgical History Surgery Procedure, Year, and Place: AORTIC VALVE SURGERY Infectious Disease History: No Infectious Disease History: Denies: Hx Clostridium Difficile, Hx Hepatitis, Hx Human Immunodeficiency Virus (HIV), Hx of Known/Suspected MRSA, Hx Shingles, Hx Tuberculosis, Hx Known/ Suspected VRE, Traveled Outside the [place] in Last 30 Days - Family History Known Family History: Positive: Cardiac Disease - Social History Occupation: Retired Alcohol Use: Occasionally Hx Substance Use: No Substance Use Type: Reports: None Hx Tobacco Use: No Smoking Status (MU): Never Smoked Tobacco Review of Systems Negative: Fever Negative: Chest Pain All Other Systems Reviewed And Are Negative: Yes Physical Exam - Summary Physical Exam Summary: Constitutional: elderly male NAD Skin: Warm, Dry HENT: Normocephalic; Atraumatic Eyes: Conjunctiva normal Neck: Musculoskeletal ROM normal neck. (-) Stridor, (-) Nuchal rigidity Cardio: No audible heart sounds secondary to LVAD ; no palpable pulses. MAP 90 Pulmonary/Chest wall: Effort normal. (-) Respiratory distress, (-) Wheezes, (-) Rales Abd: Soft, (-) tenderness, (-) Distension, (-) Guarding, (-) Rebound Musculoskeletal: (-) Edema. Lymph: (-) Cervical adenopathy Neuro: Alert, Oriented x3 Psych: Mood and affect Normal Triage Information Reviewed: Yes Vital Signs On Initial Exam: Initial Vitals Temp Pulse Resp BP Pulse Ox 98.4 F 89 16 0/0 97 04/29/19 10:07 04/29/19 10:07 04/29/19 10:07 04/29/19 10:07 04/29/19 10:07 Vital Signs Reviewed: Yes Diagnostics - Vital Signs Vital Signs Temp Pulse Resp BP Pulse Ox 04/29/19 10:07 98.4 F 89 16 0/0 97 - Laboratory Result Diagrams: 04/29/19 10:54 04/29/19 10:54 Lab Statement: Any lab studies that have been ordered have been reviewed, and results considered in the medical decision making process. - Radiology CXR Radiology Interpretation Completed By: Radiologist Summary of Radiographic Findings: CXR reveals, per radiologist, IMPRESSION: POSTSURGICAL CHANGES, NO EVIDENCE FOR ACUTE FINDING. ED physician has reviewed this radiology report. - EKG 0959 Ectopy: PVCs EKG Comparison: No Significant Change - 2014 Summary of EKG Findings: An EKG at 0959 reveals 89 bpm, LBBB, multiple PVCs, when compared to EKG from 2015 that are no significant changes. Re-Evaluation - Re-Evaluation First Eval Re-Evaluation Time: 12:25 Comment: Pt would like a copy of his labs and EKG. Second Eval Re-Evaluation Time: 12:53 Comment: Updated pt about what occured from his interrogation. 5 shocks for V tach. Patient agreeable to transfer to [facility] pending acceptance. Disposition - Course Course Of Treatment: 63-year-old male by history of an LVAD followed by physician at [facility] by Dr Pat (follows w Brand here) after feeling his defibrillator shock him times one last night. Check electrolytes, trop, CXR , EKG baseline w LBBB - Diagnoses Provider Diagnoses: V-tach, Left ventricular assist device (LVAD) complication - Physician Notifications Discussed Care Of Patient With: Heart [facility] Time Discussed With Above Provider: 11:22 Instructed by Provider To: Other - Spoke with heart [facility], they would like to get his AICD investigated; 12:51 - spoke to device rep who said pt experienced 5-6 shocks from v tach last night; 13:20 - spoke to LVAD team at [facility], plan to transfer. 13:25 - Dr. Hinojosa is the accepting physcian at [facility]. Discharge - Sign-Out/Discharge Documenting (check all that apply): Patient Departure - Transfer Patient Received Moderate/Deep Sedation with Procedure: No - Discharge Plan Condition: Good Disposition: TRANS HIGHER LVL OF CARE FAC Referrals: Kvng Husain, SHIPPING AND RECEIVING ASSISTANT [Primary Care Provider] - - Billing Disposition and Condition Condition: GOOD Disposition: Trans Higher Lvl of Care Fac - Attestation Statements Document Initiated by Scribe: Yes Documenting Scribe: Ellen Crowder Provider For Whom [place] is Documenting (Include Credential): Dr. Penny Deluna MD Scribe Attestation: Evette, Ellen Crowder scribed for Dr. Penny Deluna MD on 04/29/19 at 1426. Scribe Documentation Reviewed: Yes Provider Attestation: The documentation as recorded by the Ellen dugan accurately reflects the service I personally performed and the decisions made by me, Dr. Penny Deluna MD Status of Scribe Document: Viewed
[2019-04-29] MEDS ORDERED: Morphine 4 MG/ML VIAL (1 ml) 4 MG/ML VIAL IV ONE (10:45)
[2019-04-29] MEDS ORDERED: NS 0.9% 1000 ML** 1,000 ML IV ONE (10:45)
[2019-04-29] MEDS ORDERED: Ondansetron INJ* 2 MG/ML VIAL IV ONE (10:45)
[2019-04-29 11:16] LABS: ABS Lymphocytes 0.4 10^3/ul (1.0-4.8); ABS Neutrophils 7.9 10^3/ul (1.5-7.7); Eosinophil % 0.1 %; Hematocrit 41 % (42-52); Mean Corpuscular HGB Conc 34 g/dL (31-36); Mean Corpuscular Hemoglobin 28 pg (27-31); Mean Corpuscular Volume 81 fL (80-94); Mean Platelet Volume 8.8 fL (7.4-10.4); Platelet Count 194 10^3/uL (150-450); Red Blood Count 5.04 10^6 /uL (4.18-5.48); Red Cell Distribution Width 16 % (10-15); White Blood Count 9.3 10^3/uL (3.5-10.8)
[2019-04-29 11:33] LABS: Albumin 4.2 g/dL (3.2-5.2); Albumin/Globulin Ratio 1.5 (1-3); BUN/Creatinine Ratio 23.9 (8-20); Calcium 9.1 mg/dL (8.6-10.3); EGFR African American 79.3 (>60); EGFR Non-African American 65.5 (>60); Globulin 2.8 g/dL (2-4); Magnesium 2.2 mg/dL (1.9-2.7); Potassium 4.4 mmol/L (3.5-5.0); Total Bilirubin 1.3 mg/dL (0.2-1.0)
[2019-04-29 11:34] LABS: INR 2.91 (0.82-1.09)
[2019-04-29 14:17] LABS: Troponin I 0.91 ng/mL (<0.04)
== END 2019-04-29 15:30 | disposition short-term general hospital (02) ==
LOC: ED 09:56
DX: I47.2 Ventricular tachycardia (principal); T82.198A Other mechanical complication of other cardiac electronic device, initial encounter; Z79.01 Long term (current) use of anticoagulants; I10 Essential (primary) hypertension
CPT/HCPCS: 36415; 71045; 80053; 83735; 84484; 85025; 85610; 93005; 99283

== ENCOUNTER 2020-01-03 09:27 | Emergency (ER) | payer MEDICARE ==
[2020-01-03] MEDS ORDERED: Oxymetazoline 0.05% NASAL SPR* 15 ML BTL BOTH NARES ONE (09:35)
--- NOTE | 2020-01-03 09:38 | ED ---
Throat Pain/Nasal Congestion - HPI Summary HPI Summary: 64 y/o male w LVAD on coumadin p/w epistaxis. Patient reports hx similar. No trauma. Started approximately 35 min [employer]ISTIC[employer] from [place] [facility]. Last took coumadin last night. - History of Current Complaint Time Seen by Provider: 01/03/20 09:35 Hx Obtained From: Patient Onset/Duration: Lasting Minutes - 35, Still Present - Allergies/Home Medications Allergies/Adverse Reactions: Allergies Allergy/AdvReac Type Severity Reaction Status Date / Time No Known Allergies Allergy Verified 04/29/19 11:37 Home Medications: Home Medications Warfarin TAB(*) [Coumadin(*)] 3 mg PO . DIRECTED 08/17/12 [History Confirmed 01/03/20] Warfarin TAB(*) [Coumadin(*)] 4 mg PO SUWE 08/17/12 [History Confirmed 01/03/20] Multivitamin [Multivitamins] 1 cap PO DAILY 03/20/15 [History Confirmed 01/03/20 ] Amlodipine Besylate [Amlodipine 2.5 mg tab] 7.5 mg PO DAILY 12/24/18 [History Confirmed 01/03/20] Ascorbic Acid TAB* [Vitamin C TAB*] 500 mg PO BID 12/24/18 [History Confirmed 01/03/20] Pantoprazole TAB * [Protonix TAB*] 40 mg PO DAILY 12/24/18 [History Confirmed ] hydrALAZINE TAB* [Apresoline TAB*] 100 mg PO TID 12/24/18 [History Confirmed 07/14] Pramipexole TAB* [Mirapex TAB*] 0.25 mg PO BEDTIME 04/29/19 [History Confirmed 01/03/20] Ticagrelor* [Brilinta*] 90 mg PO BID 04/29/19 [History Confirmed 01/03/20] Amiodarone TAB* [Cordarone TAB*] 200 mg PO DAILY 01/03/20 [History Confirmed 07/14] Amoxicillin PO (*) [Amoxicillin 500 MG CAP*] 2,000 mg PO ONCE 01/03/20 [History Confirmed 01/03/20] Amoxicillin/Clavulanate TAB* [Augmentin TAB 875*] 875 mg PO BID 4 Days #8 tab [Rx] EPINEPHrine [Epipen 2-Javed] 0.3 mg IM ONCE PRN 01/03/20 [History Confirmed ] Iron Polysaccharide Complex [Ferrex 150] 150 mg PO BID 01/03/20 [History Confirmed 01/03/20] Magnesium Glycinate [Mag Glycinate] 500 mg PO BID 01/03/20 [History Confirmed ] Melatonin (NF) 6 mg PO BEDTIME 01/03/20 [History Confirmed 01/03/20] Metoprolol Succinate XL TAB* [Toprol XL TAB*] 200 mg PO DAILY 01/03/20 [History Confirmed 01/03/20] PMH/Surg Hx/FS Hx/Imm Hx Endocrine/Hematology History: Denies: Hx Diabetes, Hx Thyroid Disease Cardiovascular History: Reports: Hx Hypertension, Hx Pacemaker/ICD, Other Cardiovascular Problems/Disorders - VTACH Respiratory History: Denies: Hx Asthma - Surgical History Surgery Procedure, Year, and Place: AORTIC VALVE SURGERY Infectious Disease History: No Infectious Disease History: Denies: Hx Clostridium Difficile, Hx Hepatitis, Hx Human Immunodeficiency Virus (HIV), Hx of Known/Suspected MRSA, Hx Shingles, Hx Tuberculosis, Hx Known/ Suspected VRE, Traveled Outside the [place] in Last 30 Days - Family History Known Family History: Positive: Cardiac Disease - Social History Alcohol Use: Occasionally Hx Substance Use: No Substance Use Type: Reports: None Hx Tobacco Use: No Smoking Status (MU): Never Smoked Tobacco Review of Systems Negative: Fever Positive: Epistaxis All Other Systems Reviewed And Are Negative: Yes Physical Exam - Summary Physical Exam Summary: Constitutional: Well-developed, Well-nourished, Alert. (-) Distressed Skin: Warm, Dry HENT: Normocephalic; Atraumatic, blood clot in L n[place] w scant dripping Eyes: Conjunctiva normal Neck: Musculoskeletal ROM normal neck. (-) JVD, (-) Stridor Cardio: machine like murmur, LVAD in place. no palpable pulse. Pulmonary/Chest wall: Effort normal. (-) Respiratory distress, (-) Wheezes, (-) Rales Abd: Soft, (-) tenderness, (-) Distension, (-) Guarding, (-) Rebound Musculoskeletal: (-) Edema Neuro: Alert, Oriented x3 Psych: Mood and affect Normal Triage Information Reviewed: Yes Vital Signs On Initial Exam: Initial Vitals Temp Pulse Resp BP Pulse Ox 36.3 C 83 16 0/0 97 01/03/20 09:30 01/03/20 09:30 01/03/20 09:30 01/03/20 09:30 01/03/20 09:30 Vital Signs Reviewed: Yes Procedures - Sedation Patient Received Moderate/Deep Sedation with Procedure: No Diagnostics - Vital Signs Vital Signs Temp Pulse Resp BP Pulse Ox 01/03/20 09:30 36.3 C 83 16 0/0 97 - Laboratory Result Diagrams: 01/03/20 10:00 01/03/20 10:00 Lab Statement: Any lab studies that have been ordered have been reviewed, and results considered in the medical decision making process. Re-Evaluation - Re-Evaluation First Eval Re-Evaluation Time: 10:07 Change: Improved - nosebleed resolved Second Eval Re-Evaluation Time: 10:35 Change: Worse - had recurrent bleeding after drinking water. Given topical TXA and clamp placed EENT Course/Dx - Course Course Of Treatment: 64 y/o male w LVAD on coumadin p/w epistaxis. - placed clamp, will give afrin. Check INR (2.6). Attempted topical TXA but rebled when removed packing. Placed anterior nasal packing, given augmentin BID 4 days. F/u ENT or ED on Monday - Diagnoses Provider Diagnoses: Epistaxis Discharge ED - Sign-Out/Discharge Documenting (check all that apply): Patient Departure - Discharge Plan Condition: Stable Disposition: HOME Prescriptions: Amoxicillin/Clavulanate TAB* [Augmentin TAB 875*] 875 mg PO BID 4 Days #8 tab Patient Education Materials: Nosebleed (ED) Referrals: Aubrey Garrido MD [Medical Doctor] - Kvng Husain NP [Primary Care Provider] - Additional Instructions: You were seen in the emergency department for a nosebleed. Please keep your packing in, call the ENT office today to see if they can see you Monday to remove packing, if not, please return to ED or urgent care to have it removed on Monday. Please follow up with your primary care doctor in next 2-3 days and return to emergency department for worsening or concerning symptoms. It was a pleasure taking care of you today. - Billing Disposition and Condition Condition: STABLE Disposition: Home - Attestation Statements Document Initiated by Ilanaibmariia: Yes Documenting Scribe: Jessica Dailey Provider For Whom [place] is Documenting (Include Credential): Penny Deluna MD Scribe Attestation: I, Jessica Dailey, scribed for Penny Deluna MD on 01/03/20 at 1243. Scribe Documentation Reviewed: Yes Provider Attestation: The documentation as recorded by the scribe, Jessica Dailey accurately reflects the service I personally performed and the decisions made by me, Penny Deluna MD Status of Scribe Document: Viewed
[2020-01-03 10:15] LABS: Hematocrit 36 % (42-52); Hemoglobin 11.9 g/dL (14.0-18.0); Mean Corpuscular HGB Conc 33 g/dL (31-36); Mean Corpuscular Hemoglobin 25 pg (27-31); Mean Corpuscular Volume 76 fL (80-94); Mean Platelet Volume 8.8 fL (7.4-10.4); Platelet Count 216 10^3/uL (150-450); Red Blood Count 4.79 10^6 /uL (4.18-5.48); Red Cell Distribution Width 18 % (10-15); White Blood Count 7.1 10^3/uL (3.5-10.8)
[2020-01-03 10:34] LABS: BUN/Creatinine Ratio 23.5 (8-20); Calcium 8.8 mg/dL (8.6-10.3); EGFR African American 66.1 (>60); EGFR Non-African American 54.6 (>60); Potassium 4.1 mmol/L (3.5-5.0)
[2020-01-03 10:42] LABS: INR 2.67 (0.82-1.09)
[2020-01-03] MEDS ORDERED: Tranexamic Acid 1,000 MG/10 ML SDV TOPICAL ONE (10:45)
[2020-01-03 14:04] VITALS: BP 100/00
== END 2020-01-03 14:02 | disposition home or self-care (01) ==
LOC: ED 09:27
DX: R04.0 Epistaxis (principal); I10 Essential (primary) hypertension; Z95.811 Presence of heart assist device; Z95.810 Presence of automatic (implantable) cardiac defibrillator; Z79.01 Long term (current) use of anticoagulants; Z79.02 Long term (current) use of antithrombotics/antiplatelets; Z79.899 Other long term (current) drug therapy
CPT/HCPCS: 30901; 36415; 80048; 85027; 85610; 99283; A9270-GY

== ENCOUNTER 2020-01-03 21:08 | Emergency (ER) | payer MEDICARE ==
[2020-01-03 21:18] VITALS: BP 0/0
[2020-01-03] MEDS ORDERED: Amoxicillin/Clavulanate TAB* 875 MG PO ONE (22:01)
--- NOTE | 2020-01-03 22:02 | ED ---
Throat Pain/Nasal Congestion - HPI Summary HPI Summary: Patient complains of continuing epistaxis from left nare. Patient seen here 4 hours ago for same and packing was placed. Bleeding started earlier today. States nose continued to bleed when he got home. Patient taking brlinta and Coumadin. Denies any other symptoms, pain or injury. - History of Current Complaint Chief Complaint: EDEpistaxis Hx Obtained From: Patient Severity: Mild Associated Signs And Symptoms: Positive: Negative Cough: None - Allergies/Home Medications Allergies/Adverse Reactions: Allergies Allergy/AdvReac Type Severity Reaction Status Date / Time No Known Allergies Allergy Verified 01/03/20 21:18 Home Medications: Home Medications Warfarin TAB(*) [Coumadin(*)] 3 mg PO . DIRECTED 08/17/12 [History Confirmed 01/03/20] Warfarin TAB(*) [Coumadin(*)] 4 mg PO SUWE 08/17/12 [History Confirmed 01/03/20] Multivitamin [Multivitamins] 1 cap PO DAILY 03/20/15 [History Confirmed 01/03/20 ] Amlodipine Besylate [Amlodipine 2.5 mg tab] 7.5 mg PO DAILY 12/24/18 [History Confirmed 01/03/20] Ascorbic Acid TAB* [Vitamin C TAB*] 500 mg PO BID 12/24/18 [History Confirmed 01/03/20] Pantoprazole TAB * [Protonix TAB*] 40 mg PO DAILY 12/24/18 [History Confirmed ] hydrALAZINE TAB* [Apresoline TAB*] 100 mg PO TID 12/24/18 [History Confirmed 07/14] Pramipexole TAB* [Mirapex TAB*] 0.25 mg PO BEDTIME 04/29/19 [History Confirmed 01/03/20] Ticagrelor* [Brilinta*] 90 mg PO BID 04/29/19 [History Confirmed 01/03/20] Amiodarone TAB* [Cordarone TAB*] 200 mg PO DAILY 01/03/20 [History Confirmed 07/14] Amoxicillin PO (*) [Amoxicillin 500 MG CAP*] 2,000 mg PO ONCE 01/03/20 [History Confirmed 01/03/20] Amoxicillin/Clavulanate TAB* [Augmentin TAB 875*] 875 mg PO BID 4 Days #8 tab [Rx Confirmed 01/03/20] EPINEPHrine [Epipen 2-Javed] 0.3 mg IM ONCE PRN 01/03/20 [History Confirmed ] Iron Polysaccharide Complex [Ferrex 150] 150 mg PO BID 01/03/20 [History Confirmed 01/03/20] Magnesium Glycinate [Mag Glycinate] 500 mg PO BID 01/03/20 [History Confirmed ] Melatonin (NF) 6 mg PO BEDTIME 01/03/20 [History Confirmed 01/03/20] Metoprolol Succinate XL TAB* [Toprol XL TAB*] 200 mg PO DAILY 01/03/20 [History Confirmed 01/03/20] PMH/Surg Hx/FS Hx/Imm Hx Endocrine/Hematology History: Denies: Hx Diabetes, Hx Thyroid Disease Cardiovascular History: Reports: Hx Hypertension, Hx Pacemaker/ICD, Other Cardiovascular Problems/Disorders - VTACH Respiratory History: Denies: Hx Asthma GI History: Denies: Hx Ulcer History: Denies: Hx Dialysis Sensory History: Denies: Hx Eye Prosthesis Opthamlomology History: Denies: Hx Legally Blind EENT History: Denies: Hx Deafness - Surgical History Surgery Procedure, Year, and Place: AORTIC VALVE SURGERY Infectious Disease History: No Infectious Disease History: Denies: Hx Clostridium Difficile, Hx Hepatitis, Hx Human Immunodeficiency Virus (HIV), Hx of Known/Suspected MRSA, Hx Shingles, Hx Tuberculosis, Hx Known/ Suspected VRE, Traveled Outside the [place] in Last 30 Days - Family History Known Family History: Positive: Cardiac Disease - Social History Alcohol Use: Occasionally Hx Substance Use: No Substance Use Type: Reports: None Hx Tobacco Use: No Smoking Status (MU): Never Smoked Tobacco Review of Systems Constitutional: Negative Eyes: Negative Positive: Epistaxis Cardiovascular: Negative Respiratory: Negative Gastrointestinal: Negative Genitourinary: Negative Musculoskeletal: Negative Skin: Negative Neurological/Mental Status: Negative Psychological: Normal All Other Systems Reviewed And Are Negative: Yes Physical Exam - Summary Physical Exam Summary: No active bleeding noted on exam. Triage Information Reviewed: Yes Vital Signs On Initial Exam: Initial Vitals Temp Pulse Resp BP Pulse Ox 98.2 F 78 16 0/0 97 01/03/20 21:10 01/03/20 21:10 01/03/20 21:10 01/03/20 21:10 01/03/20 21:10 Vital Signs Reviewed: Yes Appearance: Positive: Well-Appearing Skin: Positive: Warm Head/Face: Positive: Normal Head/Face Inspection Eyes: Positive: Normal ENT: Positive: Normal ENT inspection Neck: Positive: Supple Respiratory/Lung Sounds: Positive: Clear to Auscultation Cardiovascular: Positive: Normal Abdomen Description: Positive: Nontender Musculoskeletal: Positive: Normal Neurological: Positive: Normal Psychiatric: Positive: Normal AVPU Assessment: Alert - Lui Coma Scale Best Eye Response: 4 - Spontaneous Best Motor Response: 6 - Obeys Commands Best Verbal Response: 5 - Oriented Coma Scale Total: 15 Procedures - Sedation Patient Received Moderate/Deep Sedation with Procedure: No Diagnostics - Vital Signs Vital Signs Temp Pulse Resp BP Pulse Ox 01/03/20 21:22 77 97 01/03/20 21:10 98.2 F 78 16 0/0 97 - Laboratory Lab Statement: Any lab studies that have been ordered have been reviewed, and results considered in the medical decision making process. EENT Course/Dx - Course Course Of Treatment: Patient complains of continuing epistaxis from left nare. Patient seen here 4 hours ago for same and packing was placed. Bleeding started earlier today. States nose continued to bleed when he got home. Patient taking brlinta and Coumadin. Denies any other symptoms, pain or injury. Vital signs within normal limits. Existing Rhino Rocket inflated with 2.5 mL more air. Patient states he no longer feels like he is bleeding. - Diagnoses Provider Diagnoses: Epistaxis Discharge ED - Sign-Out/Discharge Documenting (check all that apply): Patient Departure - Discharge Plan Condition: Stable Disposition: HOME Patient Education Materials: Nosebleed (ED) Referrals: Kvng Husain NP [Primary Care Provider] - Nickolas Delgado MD [Medical Doctor] - Additional Instructions: Take antibiotics twice a day as directed. Follow-up with ENT Dr. Delgado on Monday. Return to the ED for any new or worsening symptoms. - Billing Disposition and Condition Condition: STABLE Disposition: Home
== END 2020-01-03 22:10 | disposition home or self-care (01) ==
LOC: ED 21:08
DX: R04.0 Epistaxis (principal); I10 Essential (primary) hypertension; Z95.810 Presence of automatic (implantable) cardiac defibrillator; Z79.01 Long term (current) use of anticoagulants; Z79.02 Long term (current) use of antithrombotics/antiplatelets; Z79.899 Other long term (current) drug therapy
CPT/HCPCS: 99282; A9270-GY

== ENCOUNTER 2020-01-14 20:45 | Emergency (ER) | payer MEDICARE ==
--- OUTSIDE RECORDS SUMMARY | 2020-01-14 20:59 | XMS REPORT | Continuity of Care Document ---
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 Onset: 12/01/2014 Social History Type Date Description Comments Sex Unknown Tobacco Use Start: Unknown Never Smoked Cigarettes Tobacco Use Start: Unknown Never Smoked Cigars Tobacco Use Start: Unknown Never Smoked A Pipe Smokeless Tobacco Never Used Smokeless Tobacco ETOH Use Currently occasionally consumes alcohol Tobacco Use Start: Unknown Patient has never smoked Smoking Status Reviewed: 01/09/20 Patient has never smoked Allergies, Adverse Reactions, Alerts Description No Known Drug Allergies Medications Active Medications SIG Qnty Indications Ordering Provider Date Multivitamins 1 by mouth every Self Capsules day Warfarin Sodium as directed [address] [address] 2mg Tablets M.D. Amiodarone HCL 1 by mouth every [address] 200mg day M.D. Tablets Magnesium Gluconate As directed [address]as 550mg M.D. Tablets Metoprolol Succinate ER 1 by mouth every [address] day M.D. 100mg Tablets ER 24HR Pantoprazole Sodium take once daily [address] [address]as 40mg M.D. Solution Rec Brilinta 1 by mouth twice [address] 90mg Tablets a day M.D. Amlodipine Besylate Unknown 2.5mg Tablets Immunizations Description No Information Available Vital Signs Date Vital Result Comment 01/09/2020 10:47am Weight 188.00 lb Weight 85.277 kg Height 65 inches 5'5" Height in cm's 165.1 cm BMI (Body Mass Index) 31.3 kg/m2 06/08/2016 3:31pm Weight 186.00 lb Weight 84.370 kg Height 66 inches 5'6" Height in cm's 167.6 cm BMI (Body Mass Index) 30.0 kg/m2 Results Description No Information Available Procedures Date Code Description Status 01/09/2020 92974 Contol Nasal Hemorrhage, Anterior, Simple Completed Medical Devices Description No Information Available Encounters Type Date Location Provider Dx Diagnosis Office Visit 01/09/2020 11:00a [facility] 09-25-2019 Nickolas Delgado, R04.0 Epistaxis MD Assessments Date Code Description Provider 01/09/2020 R04.0 Epistaxis Nickolas Delgado MD Plan of Treatment No Information Available Functional Status Description No Information Available Mental Status Description No Information Available Referrals Description No Information Available
--- OUTSIDE RECORDS SUMMARY | 2020-01-14 20:59 | XMS REPORT | Continuity of Care Document ---
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 Onset: 12/01/2014 Bleeding from nose Aubrey Garrido MD Onset: 01/13/2020 Social History Type Date Description Comments Sex [...] Succinate ER 1 by mouth every [address] day M.D. 100mg Tablets ER 24HR Pantoprazole Sodium take once daily [address]as 40mg M.D. Solution Rec Brilinta 1 by mouth twice [address] 90mg Tablets a day M.D. Amlodipine Besylate Unknown 2.5mg Tablets Immunizations Description No Information Available Vital Signs Date Vital Result Comment 01/13/2020 9:20am Weight 188.00 lb Weight 85.277 kg Height 65 inches 5'5" Height in cm's 165.1 cm BMI (Body Mass Index) 31.3 kg/m2 01/09/2020 10:47am Weight 188.00 lb Weight 85.277 kg Height 65 inches 5'5" Height in cm's 165.1 cm BMI (Body Mass Index) 31.3 kg/m2 Results Description No Information Available Procedures Date Code Description Status 01/09/2020 03609 Contol Nasal Hemorrhage, Anterior, Simple Completed Medical Devices Description No Information Available Encounters Type Date Location Provider Dx Diagnosis Office Visit 01/13/2020 9:30a [facility] 09-25-2019 Aubrey Garrido MD R04.0 Epistaxis Office Visit 01/09/2020 11:00a [facility] 09-25-2019 Nickolas Delgado [id number] Yip MD Assessments Date Code Description Provider 01/13/2020 R04.0 Epistaxis Aubrey Garrido MD 01/09/2020 R04.0 Epistaxis Nickolas Delgado MD Plan of Treatment 01/13/2020 - Aubrey Garrido MDR04.0 EpistaxisComments:The pack was removed. There is no active bleeding. The patient will use a moisturizer in the nose. Functional Status Description No Information Available Mental Status Description No Information Available Referrals Description No Information Available
--- OUTSIDE RECORDS SUMMARY | 2020-01-14 20:59 | XMS REPORT | Continuity of Care Document ---
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 Onset: 12/01/2014 Social History Type Date Description Comments Sex Unknown Tobacco Use Start: Unknown Never Smoked Cigarettes Tobacco Use Start: Unknown Never Smoked Cigars Tobacco Use Start: Unknown Never Smoked A Pipe Smokeless Tobacco Never Used Smokeless Tobacco ETOH Use Currently occasionally consumes alcohol Tobacco Use Start: Unknown Patient has never smoked Allergies, Adverse Reactions, [...] kg/m2 Results Description No Information Available Procedures Description No Information Available Medical Devices Description No Information Available Encounters Description No Information Available Assessments Description No Information Available Plan of Treatment No Information Available Functional Status Description No Information Available Mental Status Description No Information Available Referrals Description No Information Available
[2020-01-14] MEDS ORDERED: Tranexamic Acid 1,000 MG/10 ML SDV TOPICAL ONE (21:16)
[2020-01-14] MEDS ORDERED: Lidocaine 2% JELLY* 10 ML JELLY TOPICAL ONE (21:16)
[2020-01-14] MEDS ORDERED: Oxymetazoline 0.05% NASAL SPR* 15 ML BTL BOTH NARES ONE (21:16)
[2020-01-14 21:27] VITALS: BP 100/0
[2020-01-14] MEDS ORDERED: Lidocaine 2% JELLY* 6 ML JELLY TOPICAL ONE (21:30)
--- NOTE | 2020-01-14 21:30 | ED ---
Throat Pain/Nasal Congestion - HPI Summary HPI Summary: 64 year old male presents with epistaxis for the past 20 minutes. He states that he has packing removed yesterday and his nose was fine. He has been using saline in the nose for past day. He states bleed started in his left nostril and is dripping down into right nostril. He is on Coumadin and had INR checked yesterday and it was 2.1. he has an LVAD. He denies any chest pain or SOB. no dizziness. no trauma. - History of Current Complaint Chief Complaint: EDEpistaxis Time Seen by Provider: 01/14/20 21:16 - Allergies/Home Medications Allergies/Adverse Reactions: Allergies Allergy/AdvReac Type Severity Reaction Status Date / Time No Known Allergies Allergy Verified 01/14/20 20:53 Home Medications: Home Medications Warfarin TAB(*) [Coumadin(*)] 3 mg PO . DIRECTED 08/17/12 [History Confirmed 01/14/20] Warfarin TAB(*) [Coumadin(*)] 4 mg PO SUWE 08/17/12 [History Confirmed 01/14/20] Multivitamin [Multivitamins] 1 cap PO DAILY 03/20/15 [History Confirmed 01/14/20 ] Amlodipine Besylate [Amlodipine 2.5 mg tab] 7.5 mg PO DAILY 12/24/18 [History Confirmed 01/14/20] Ascorbic Acid TAB* [Vitamin C TAB*] 500 mg PO BID 12/24/18 [History Confirmed 01/14/20] Pantoprazole TAB * [Protonix TAB*] 40 mg PO DAILY 12/24/18 [History Confirmed ] hydrALAZINE TAB* [Apresoline TAB*] 100 mg PO TID 12/24/18 [History Confirmed ] Pramipexole TAB* [Mirapex TAB*] 0.25 mg PO BEDTIME 04/29/19 [History Confirmed 01/14/20] Ticagrelor* [Brilinta*] 90 mg PO BID 04/29/19 [History Confirmed 01/14/20] Amiodarone TAB* [Cordarone TAB*] 200 mg PO DAILY 01/03/20 [History Confirmed ] Amoxicillin PO (*) [Amoxicillin 500 MG CAP*] 2,000 mg PO ONCE 01/03/20 [History Confirmed 01/14/20] Amoxicillin/Clavulanate TAB* [Augmentin TAB 875*] 875 mg PO BID 4 Days #8 tab [Rx Confirmed 01/14/20] EPINEPHrine [Epipen 2-Javed] 0.3 mg IM ONCE PRN 01/03/20 [History Confirmed ] Iron Polysaccharide Complex [Ferrex 150] 150 mg PO BID 01/03/20 [History Confirmed 01/14/20] Magnesium Glycinate [Mag Glycinate] 500 mg PO BID 01/03/20 [History Confirmed ] Melatonin (NF) 6 mg PO BEDTIME 01/03/20 [History Confirmed 01/14/20] Metoprolol Succinate XL TAB* [Toprol XL TAB*] 200 mg PO DAILY 01/03/20 [History Confirmed 01/14/20] Amoxicillin/Clavulanate TAB* [Augmentin TAB 875*] 875 mg PO BID #7 tab 01/14/20 [Rx] PMH/Surg Hx/FS Hx/Imm Hx Endocrine/Hematology History: Denies: Hx Diabetes, Hx Thyroid Disease Cardiovascular History: Reports: Hx Hypertension, Hx Pacemaker/ICD, Other Cardiovascular Problems/Disorders - VTACH Respiratory History: Denies: Hx Asthma GI History: Denies: Hx Ulcer History: Denies: Hx Dialysis Sensory History: Denies: Hx Eye Prosthesis, Hx Legally Blind, Hx Deafness Opthamlomology History: Denies: Hx Eye Prosthesis, Hx Legally Blind - Surgical History Surgery Procedure, Year, and Place: AORTIC VALVE SURGERY Infectious Disease History: Yes Infectious Disease History: Denies: Hx Clostridium Difficile, Hx Hepatitis, Hx Human Immunodeficiency Virus (HIV), Hx of Known/Suspected MRSA, Hx Shingles, Hx Tuberculosis, Hx Known/ Suspected VRE, Traveled Outside the [place] in Last 30 Days - Family History Known Family History: Positive: Cardiac Disease - Social History Alcohol Use: Occasionally Hx Substance Use: No Substance Use Type: Reports: None Hx Tobacco Use: No Smoking Status (MU): Never Smoked Tobacco Review of Systems Negative: Fever Positive: Epistaxis Negative: Chest Pain Negative: Shortness Of Breath All Other Systems Reviewed And Are Negative: Yes Physical Exam Triage Information Reviewed: Yes Vital Signs On Initial Exam: Initial Vitals Temp Pulse Resp BP Pulse Ox 98.6 F 80 16 0/0 99 01/14/20 20:52 01/14/20 20:52 01/14/20 20:52 01/14/20 20:52 01/14/20 20:52 Vital Signs Reviewed: Yes Appearance: Positive: Well-Appearing Skin: Positive: Warm, Dry Head/Face: Positive: Normal Head/Face Inspection Eyes: Positive: Normal, Conjunctiva Clear ENT: Positive: Pharynx normal Respiratory/Lung Sounds: Positive: Clear to Auscultation, Breath Sounds Present Cardiovascular: Positive: Normal, RRR Musculoskeletal: Positive: Normal Neurological: Positive: Normal Psychiatric: Positive: Normal Procedures - Sedation Patient Received Moderate/Deep Sedation with Procedure: No Diagnostics - Vital Signs Vital Signs Temp Pulse Resp BP Pulse Ox 01/14/20 21:27 100/0 01/14/20 20:52 98.6 F 80 16 0/0 99 - Laboratory Lab Statement: Any lab studies that have been ordered have been reviewed, and results considered in the medical decision making process. Re-Evaluation - Re-Evaluation First Eval Re-Evaluation Time: 22:00 Comment: bleeding continues so will apply rhinorocket Second Eval Re-Evaluation Time: 22:25 Comment: bleeding stopped EENT Course/Dx - Course Course Of Treatment: 64 year old male presents with epistaxis for the past 20 minutes. He states that he has packing removed yesterday and his nose was fine. He has been using saline in the nose for past day. He states bleed started in his left nostril and is dripping down into right nostril. He is on Coumadin and had INR checked yesterday and it was 2.1. he has an LVAD. He denies any chest pain or SOB. no dizziness. no trauma. on exam has active bleeding of left nostril. had remove clots and placed urojet, afrin and txa and bleeding continued, applied rhinorocket. will place on augmentin. will have follow up with ENT. patient understand and agrees with plan. - Differential Diagnoses Differential Diagnoses: Epistaxis, Sinusitis, URI/Bronchitis - Diagnoses Provider Diagnoses: Epistaxis - Critical Care Time Critical Care Statement: Critical care time is provided exclusive of any time spent performing procedures. Discharge ED - Sign-Out/Discharge Documenting (check all that apply): Patient Departure - Discharge Plan Condition: Good Disposition: HOME Prescriptions: Amoxicillin/Clavulanate TAB* [Augmentin TAB 875*] 875 mg PO BID #7 tab Patient Education Materials: Nosebleed (ED) Referrals: Kvng Husain NP [Primary Care Provider] - Aubrey Garrido MD [Medical Doctor] - Additional Instructions: Take augmentin twice a day for 4 days Follow up with ENT in three days or return to ED to have removed Return to ED if area continues to bleed or any new or worsening symptoms - Billing Disposition and Condition Condition: GOOD Disposition: Home
[2020-01-14] MEDS ORDERED: Amoxicillin/Clavulanate TAB* 875 MG PO ONE (22:16)
== END 2020-01-14 22:50 | disposition home or self-care (01) ==
LOC: ED 20:45
DX: R04.0 Epistaxis (principal); I10 Essential (primary) hypertension; Z95.0 Presence of cardiac pacemaker; Z86.79 Personal history of other diseases of the circulatory system; Z79.01 Long term (current) use of anticoagulants; Z88.0 Allergy status to penicillin; Z79.899 Other long term (current) drug therapy
CPT/HCPCS: 99282; A9270-GY

== ENCOUNTER 2020-01-15 04:51 | Emergency (ER) | payer MEDICARE ==
[2020-01-15 04:53] VITALS: BP 0/0
--- NOTE | 2020-01-15 05:28 | ED ---
Throat Pain/Nasal Congestion - HPI Summary HPI Summary: Patient is a 64 y/o M w/ LVAD who presents to [facility] for epistaxis. The patient has been to [facility] multiple times this month for similar complaints. Most recently, patient was seen during the evening of 01/14/20 for epistaxis of left nostril with some blood dripping down into the right nostril. Clots were removed , uroject, afrin, and txa applied without relief, left rhinorocket placed to control bleeding. Patient was discharged to home with Augmentin prescription and ENT followup. Shortly after returning home, epistaxis onset once more and patient's rhinorocket has soaked through with blood. He additionally notes some blood clots to his right nostril and states that he feels blood running down the back of his throat. While in ED, he states that he felt "woozy" while ambulating to the bathroom. Patient is on Warfarin and Brillinta. Home medications and allergies are reviewed. - History of Current Complaint Time Seen by Provider: 01/15/20 04:51 Hx Obtained From: Patient Onset/Duration: Still Present Severity: Moderate Associated Signs And Symptoms: Positive: Nasal Discharge - epistaxis Cough: None - Allergies/Home Medications Allergies/Adverse Reactions: Allergies Allergy/AdvReac Type Severity Reaction Status Date / Time No Known Allergies Allergy Verified 01/15/20 06:16 Home Medications: Home Medications Warfarin TAB(*) [Coumadin(*)] 2 mg PO SUWE 08/17/12 [History Confirmed 01/15/20] Warfarin TAB(*) [Coumadin(*)] 3 mg PO . DIRECTED 08/17/12 [History Confirmed 01/15/20] Multivitamin [Multivitamins] 1 cap PO DAILY 03/20/15 [History Confirmed 01/15/20 ] Amlodipine Besylate [Amlodipine 2.5 mg tab] 7.5 mg PO DAILY 12/24/18 [History Confirmed 01/15/20] Ascorbic Acid TAB* [Vitamin C TAB*] 500 mg PO BID 12/24/18 [History Confirmed 01/15/20] Pantoprazole TAB * [Protonix TAB*] 40 mg PO DAILY 12/24/18 [History Confirmed ] hydrALAZINE TAB* [Apresoline TAB*] 100 mg PO TID 12/24/18 [History Confirmed ] Pramipexole TAB* [Mirapex TAB*] 0.25 mg PO BEDTIME 04/29/19 [History Confirmed 01/15/20] Ticagrelor* [Brilinta*] 90 mg PO BID 04/29/19 [History Confirmed 01/15/20] Amiodarone TAB* [Cordarone TAB*] 200 mg PO DAILY 01/03/20 [History Confirmed ] Amoxicillin PO (*) [Amoxicillin 500 MG CAP*] 2,000 mg PO ONCE 01/03/20 [History Confirmed 01/15/20] EPINEPHrine [Epipen 2-Javed] 0.3 mg IM ONCE PRN 01/03/20 [History Confirmed ] Iron Polysaccharide Complex [Ferrex 150] 150 mg PO BID 01/03/20 [History Confirmed 01/15/20] Magnesium Glycinate [Mag Glycinate] 500 mg PO BID 01/03/20 [History Confirmed ] Melatonin (NF) 6 mg PO BEDTIME 01/03/20 [History Confirmed 01/15/20] Metoprolol Succinate XL TAB* [Toprol XL TAB*] 200 mg PO DAILY 01/03/20 [History Confirmed 01/15/20] PMH/Surg Hx/FS Hx/Imm Hx Endocrine/Hematology History: Denies: Hx Diabetes, Hx Thyroid Disease Cardiovascular History: Reports: Hx Hypertension, Hx Pacemaker/ICD, Other Cardiovascular Problems/Disorders - [facility] Respiratory History: Denies: Hx Asthma GI History: Denies: Hx Ulcer History: Denies: Hx Dialysis Sensory History: Denies: Hx Eye Prosthesis, Hx Legally Blind, Hx Deafness Opthamlomology History: Denies: Hx Eye Prosthesis, Hx Legally Blind - Surgical History Surgery Procedure, Year, and Place: AORTIC VALVE SURGERY Infectious Disease History: No Infectious Disease History: Denies: Hx Clostridium Difficile, Hx Hepatitis, Hx Human Immunodeficiency Virus (HIV), Hx of Known/Suspected MRSA, Hx Shingles, Hx Tuberculosis, Hx Known/ Suspected VRE, Traveled Outside the [place] in Last 30 Days - Family History Known Family History: Positive: Cardiac Disease - Social History Alcohol Use: None Hx Substance Use: No Substance Use Type: Reports: None Hx Tobacco Use: No Smoking Status (MU): Never Smoked Tobacco Review of Systems - ROS Summary Review of Systems Summary: Home Medications Medication Instructions Recorded Confirmed Type Warfarin TAB(*) [Coumadin(*)] 3 mg PO . DIRECTED 08/17/12 01/14/20 History Warfarin TAB(*) [Coumadin(*)] 4 mg PO SUWE 08/17/12 01/14/20 History Multivitamin [Multivitamins] 1 cap PO DAILY 03/20/15 01/14/20 History Amlodipine Besylate [Amlodipine 7.5 mg PO DAILY 12/24/18 01/14/20 History 2.5 mg tab] Ascorbic Acid TAB* [Vitamin C 500 mg PO BID 12/24/18 01/14/20 History TAB*] Pantoprazole TAB * [Protonix TAB*] 40 mg PO DAILY 12/24/18 01/14/20 History hydrALAZINE TAB* [Apresoline TAB*] 100 mg PO TID 12/24/18 01/14/20 History Pramipexole TAB* [Mirapex TAB*] 0.25 mg PO BEDTIME 04/29/19 01/14/20 History Ticagrelor* [Brilinta*] 90 mg PO BID 04/29/19 01/14/20 History Amiodarone TAB* [Cordarone TAB*] 200 mg PO DAILY 01/03/20 01/14/20 History Amoxicillin PO (*) [Amoxicillin 2,000 mg PO ONCE 01/03/20 01/14/20 History 500 MG CAP*] Amoxicillin/Clavulanate TAB* 875 mg PO BID 4 Days #8 tab 01/03/20 01/14/20 Rx [Augmentin TAB 875*] EPINEPHrine [Epipen 2-Javed] 0.3 mg IM ONCE PRN 01/03/20 01/14/20 History Iron Polysaccharide Complex 150 mg PO BID 01/03/20 01/14/20 History [Ferrex 150] Magnesium Glycinate [Mag Glycinate] 500 mg PO BID 01/03/20 01/14/20 History Melatonin (NF) 6 mg PO BEDTIME 01/03/20 01/14/20 History Metoprolol Succinate XL TAB* 200 mg PO DAILY 01/03/20 01/14/20 History [Toprol XL TAB*] Amoxicillin/Clavulanate TAB* 875 mg PO BID #7 tab 01/14/20 Rx [Augmentin TAB 875*] Constitutional: Other - positive - "woozy" while ambulating to bathroom Positive: Epistaxis All Other Systems Reviewed And Are Negative: Yes Physical Exam - Summary Physical Exam Summary: General: Well-developed, Well-nourished male. No acute distress. HEENT: Normocephalic, Atraumatic. Rhinorocket in place at left nostril that has been soaked through with blood with mild dripping. Right nostril has clotted blood. Eyes: Conjuctiva normal, PERRL. Oropharynx: Posterior oropharynx has red blood running down it. Mucous membranes moist, (-) exudates. Neck: Soft, FROM, (-) lymphadenopathy, (-) thyromegaly, (-) JVD. Cardiovascular: Normal sinus rhythm, (-) murmur. Decreased heart sounds. Lungs: Clear to auscultation bilaterally (-) wheezes, (-) rales, (-) rhonchi. Abdomen: Soft, non-tender, non-distended, (-) organomegaly, normal bowel sounds. Back: (-) CVA tenderness Extremities: No edema. Skin: Warm, dry, (-) rash. Neuro: Alert and oriented x3, moves all extremities equally. No ataxia. No gait disturbance. No sensory deficit. Normal strength, normal sensation. Psychiatric: Odd affect. Triage Information Reviewed: Yes Vital Signs On Initial Exam: Initial Vitals Temp Pulse Resp BP Pulse Ox 97.8 F 86 16 0/0 99 01/15/20 04:51 01/15/20 04:51 01/15/20 04:51 01/15/20 04:51 01/15/20 04:51 Vital Signs Reviewed: Yes Procedures - Sedation Patient Received Moderate/Deep Sedation with Procedure: No Diagnostics - Vital Signs Vital Signs Temp Pulse Resp BP Pulse Ox 01/15/20 04:51 97.8 F 86 16 0/0 99 - Laboratory Result Diagrams: 01/15/20 05:45 01/15/20 05:45 Lab Statement: Any lab studies that have been ordered have been reviewed, and results considered in the medical decision making process. Re-Evaluation - Re-Evaluation First Eval Re-Evaluation Time: 06:18 Comment: Discussed labs with the patient. Informed consent was obtained for blood transfusion. LVAD team will be contacted. EENT Course/Dx - Course Course Of Treatment: 64-year-old male presents from home with the return of epistaxis. Apparently patient's been having this problem for about a week now. Has had multiple visits to this emergency room. The last one was just a few hours ago. At that time he had a Rhino Rocket placed in his left naris. He states it started bleeding again when he got home and is now soaking through the Rhino Rocket and is coming down the back of his throat. Patient is on warfarin as well as Brilinta. Has an LVAD. Has mild serous drainage posterior pharynx. A clot is blocking the right nostril. Blood work is obtained which demonstrates a hemoglobin of 7.3. Last hemoglobin earlier this month was 11.9. Patient denies any rectal bleeding. No hemoptysis. Did have some dizziness with walking to the bathroom here in the emergency room. Discussed transfusion with patient. He had all of his questions answered and informed consent was obtained. Patient is signed out at change of shift to and sudden physician's professional nursing assistant who will contact LVAD team and expect transfer. - Diagnoses Provider Diagnoses: Anemia, End stage congestive heart failure, Epistaxis - Critical Care Time Critical Care Statement: Critical care time is provided exclusive of any time spent performing procedures. Discharge ED - Sign-Out/Discharge Documenting (check all that apply): Sign-Out Patient Signing out patient TO: Alexandre Cooney - Discharge Plan Condition: Stable Disposition: TRANS HIGHER LVL OF CARE FAC Referrals: Kvng Husain, DRESSING MACHINE OPERATOR [Primary Care Provider] - - Billing Disposition and Condition Condition: STABLE Disposition: Trans Higher Lvl of Care Fac - Attestation Statements Document Initiated by [place]: Yes Documenting Scribe: AIMEE FRAGOSO Provider For Whom [place] is Documenting (Include Credential): REMBERTO SHEFFIELD MD Scribe Attestation: I, AIMEE FRAGOSO, scribed for REMBERTO SHEFFIELD MD on 01/16/20 at 0451. Scribe Documentation Reviewed: Yes Provider Attestation: The documentation as recorded by the AIMEE dugan accurately reflects the service I personally performed and the decisions made by me, REMBERTO SHEFFIELD MD Status of Scribe Document: Viewed
[2020-01-15 05:52] LABS: ABS Basophils 0.1 10^3/ul (0-0.2); ABS Lymphocytes 0.5 10^3/ul (1.0-4.8); ABS Neutrophils 13.2 10^3/ul (1.5-7.7); Eosinophil % 0.1 %; Hematocrit 23 % (42-52); Hemoglobin 7.3 g/dL (14.0-18.0); Lymphocyte % 3.2 %; Mean Corpuscular HGB Conc 32 g/dL (31-36); Mean Corpuscular Hemoglobin 24 pg (27-31); Mean Corpuscular Volume 75 fL (80-94); Mean Platelet Volume 7.8 fL (7.4-10.4); Platelet Count 331 10^3/uL (150-450); Red Blood Count 3.03 10^6 /uL (4.18-5.48); Red Cell Distribution Width 18 % (10-15); White Blood Count 14.8 10^3/uL (3.5-10.8)
[2020-01-15 06:00] LABS: Activated Partial Thrombo Time 40.1 seconds (26.0-38.0); INR 1.89 (0.82-1.09)
[2020-01-15 06:08] LABS: Albumin 3.6 g/dL (3.2-5.2); Albumin/Globulin Ratio 1.4 (1-3); BUN/Creatinine Ratio 38.2 (8-20); Calcium 8.3 mg/dL (8.6-10.3); EGFR African American 71.7 (>60); EGFR Non-African American 59.2 (>60); Globulin 2.5 g/dL (2-4); Potassium 4.5 mmol/L (3.5-5.0); Total Bilirubin 0.8 mg/dL (0.2-1.0); Total Protein 6.1 g/dL (6.4-8.9)
--- NOTE | 2020-01-15 06:43 | ED ---
Progress - Progress Note Progress Note: Pt signed out to me by Dr. Jj at 0630. Pt presents the ED with epistaxis ( pts is anticoagulted) since approx 1999 yesterday evening. Pt has right anterior rhinorocket inplace which is soaked. Rhino Rocket was replaced with 5.5 cm Rhino Rocket of the left nares. Blood clots were cleared and Rhino Rocket was inserted. Patient tolerated this procedure well. Bleeding was minimized after Rhino Rocket placement. Pt has extensive cardiac hx and LVAD in place (done in [place] ([facility] Pts labs show H&H 7.3/23. INR 1.89. Type and screen was done, pt was given 1 units of PRBC. Pt given Protonix for possible GI bleed. Pts LVAD team was consulted at [facility] agreed to accept pt for epistaxis, Acute blood loss anemia, possible GI bleed, LVAD. Accepting physician Dr. Anaya at [facility], room 4-3400. Patient was transferred by [facility] [employer] [facility], urgent. Re-Evaluation - Re-Evaluation First Eval Re-Evaluation Time: 06:18 Comment: Discussed labs with the patient. Informed consent was obtained for blood transfusion. LVAD team will be contacted. Course/Dx - Diagnoses Provider Diagnoses: Anemia, End stage congestive heart failure, Epistaxis - Critical Care Time Critical Care Statement: Critical care time is provided exclusive of any time spent performing procedures. Discharge ED - Sign-Out/Discharge Documenting (check all that apply): Patient Departure - Discharge Plan Condition: Stable Disposition: TRANS HIGHER LVL OF CARE FAC Referrals: Kvng Husain CONTRACTS DIRECTOR [Primary Care Provider] - - Billing Disposition and Condition Condition: STABLE Disposition: Trans Higher Lvl of Care Fac
[2020-01-15] MEDS ORDERED: Pantoprazole* 80 mg IN NS 80 MG/250 ML BAG IV ONE (07:08)
[2020-01-15] MEDS ORDERED: Pantoprazole IV* 40 MG IV ONE (07:33)
== END 2020-01-15 11:35 | disposition short-term general hospital (02) ==
LOC: ED 04:51
DX: R04.0 Epistaxis (principal); D64.9 Anemia, unspecified; I11.0 Hypertensive heart disease with heart failure; I50.84 End stage heart failure; Z95.0 Presence of cardiac pacemaker; Z79.01 Long term (current) use of anticoagulants
CPT/HCPCS: 36415; 36430; 80053; 85025; 85610; 85730; 86850; 86900; 86901; 86922; 99285; P9040